=== PATIENT | female | born 1950 | race Caucasian/White ===

== ENCOUNTER 2022-06-23 11:05 | Outpatient (CLI) | payer OTHER, SELFPAY | END 2022-06-23 11:06 | disposition home or self-care (01) | LOC: LKVREF 06-26 14:52 | PROVIDERS: PCP Family Medicine; Visit Provider Physician Assistant | DX: R30.0 Dysuria (principal); N39.0 Urinary tract infection, site not specified | CPT/HCPCS: 87086 ==

== ENCOUNTER 2022-10-09 09:46 | Emergency (ER) | payer OTHER, SELFPAY ==
[2022-10-09 09:54] VITALS: BP 141/83; PULSE 71; RESP 18; TEMP 36.2; O2SAT 97; BMI 28.3
--- NOTE | 2022-10-09 10:10 | CRLHL7_ITS ---
For Patients: As a result of the Century Cures Act, medical imaging exams and procedure reports are released immediately into your electronic medical record. You may view this report before your referring provider. If you have questions, please contact your health care provider. INDICATION: Trauma COMPARISON: August 13, 2021 TECHNIQUE: : CT examination of the chest was performed without contrast. Thin axial sections were obtained from above the apices of the lungs to the lung bases. Please note that all CT scans at this facility use dose modulation, iterative reconstruction, and/or weight-based dosing when appropriate to reduce radiation dose to as low as reasonably achievable. FINDINGS: : HEART and MEDIASTINUM: The heart size is normal. There is no mediastinal or hilar adenopathy or mass. There is no pericardial effusion. LUNGS: The lungs show no focal consolidation or mass. The airways appear normal. Trace basilar atelectasis PLEURAL SPACES: There is no pleural effusion, pneumothorax or pleural based mass. VISUALIZED UPPER ABDOMEN: The limited visualized upper abdominal structures appear normal. OSSEOUS STRUCTURES: Age-appropriate appearance. No acute fracture or destructive process.No acute osseous finding. No definite acute rib fracture. TUBES and LINES: None. IMPRESSION: No visible acute post traumatic findings. Minimal basilar atelectasis. No pleural effusion or pneumothorax. Please note that all CT scans at this facility use dose modulation, iterative reconstruction, and/or weight-based dosing when appropriate to reduce radiation dose to as low as reasonably achievable. Dictated by Bernardino Chpaa MD @ 10/09/2022 10:45:59 AM (Electronically Signed)
--- NOTE | 2022-10-09 10:12 | ED.GENADULT ---
HPI - General Adult General Time Seen by Provider: 10:12 Date Seen: 10/09/22 Chief complaint: Fall/Minor Trauma Stated complaint: Fell last week, chest pain Time Seen by Provider: 10/09/22 10:00 Source: patient Mode of arrival: ambulatory Limitations: no limitations History of Present Illness HPI narrative: Patient is a 72-year-old female who presents with a fall few days ago landed on her left arm and then twisted and hurt her chest she has pain in her posterior scapular area as well as her anterior upper chest. It is tender to palpation, tender went deep breathing or movement. She simply lost her balance when she fell. She has not really taken any pain medication for this. Patient denies radicular symptoms denies abdominal pain has been eating and drinking normally ambulating normally. It has been hard to sleep because of the discomfort in her chest wall anteriorly primarily Related Data Home Medications Medication Instructions Recorded Confirmed celecoxib 200 mg capsule 200 mg PO QDAY 05/01/22 06/23/22 escitalopram oxalate 10 mg tablet 10 mg PO QDAY 05/01/22 10/09/22 metoprolol succinate 25 mg 25 mg PO QDAY 05/01/22 06/23/22 tablet,extended release 24 hr omeprazole 20 mg capsule,delayed 20 mg PO QDAY PRN 05/01/22 10/09/22 release Previous Rx's Medication Instructions Recorded cefuroxime axetil 250 mg tablet 250 mg PO BID #14 tabs 05/01/22 cephalexin 500 mg capsule 500 mg PO BID UTI #14 caps 06/23/22 Allergies Allergy/AdvReac Type Severity Reaction Status Date / Time nitrofurantoin Allergy Unknown N/V Verified 05/01/22 11:23 Sulfa (Sulfonamide Allergy Unknown GI upset Verified 05/01/22 11:23 Antibiotics) Review of Systems Status of ROS: Reports: 6 or more systems reviewed and unremarkable except as noted in History and below PFSH PFSH Social History Smoking Status: Never smoker How often do you have a drink containing alcohol: never AUDIT-C Alcohol total score: 0 Non-prescribed substance use: denies use Exam Narrative: Exam Narrative: Objective: In general the patient is no apparent distress alert orient x3 HEENT unremarkable neck is supple Chest shows some tenderness anteriorly over the mid act midclavicular line no bruising no crepitus pulses regular she has some mild periscapular discomfort as well on the left no bruising. Neurologic is grossly nonfocal good peripheral perfusion noted. She has a couple scratches on her left forearm but she is moving her arm fully. Const: Vital Signs, click to edit/add: Vital Signs - 24 hr 10/09/22 09:54 Temperature 97.2 F L Pulse Rate [Pulse Oximeter] 71 Respiratory Rate 18 Blood Pressure [Le ft Upper Arm] 141/83 H Pulse Oximetry 97 Oxygen Delivery Me thod Room Air Course Vital Signs Vital signs: Initial Vital Signs Temperature 97.2 F L 10/09/22 09:54 Temperature Source Temporal Artery Scan 10/09/22 09:54 Pulse Rate 71 10/09/22 09:54 Respiratory Rate 18 10/09/22 09:54 Blood Pressure 141/83 H 10/09/22 09:54 Blood Pressure Mean 102 10/09/22 09:54 Blood Pressure Position Sitting 10/09/22 09:54 Pulse Oximetry 97 10/09/22 09:54 Oxygen Delivery Method 10/09/22 09:54 Vital Signs Temperature 97.2 F L 10/09/22 09:54 Pulse Rate 71 10/09/22 09:54 Respiratory Rate 18 10/09/22 09:54 Blood Pressure 141/83 H 10/09/22 09:54 Pulse Oximetry 97 10/09/22 09:54 Oxygen Delivery Method 10/09/22 09:54 Temperature 97.2 F L 10/09/22 09:54 Pulse Rate 71 10/09/22 09:54 Respiratory Rate 18 10/09/22 09:54 Blood Pressure 141/83 H 10/09/22 09:54 Pulse Oximetry 97 10/09/22 09:54 Oxygen Delivery Method 10/09/22 09:54 Medical Decision Making MDM Narrative Medical decision making narrative: Given the patient's fall and her persistent posterior and anterior chest wall pain I think could be appropriate to get a CT scan without contrast to rule out fracture, pulmonary contusion. Her O2 sat is excellent. Will give her some ibuprofen. Disposition pending her CT findings. She was in agreement this plan. Addendum: Chest CT scan looks unremarkable for any posttraumatic changes, no rib fractures, no pulmonary contusion. Recommend symptomatic management this point ice, Advil or Aleve, Tylenol, recheck with primary care in 5-7 days not improving changes concerns worsening return to ED. Discharge Plan Discharge Clinical Impression: Acute chest wall pain Patient Disposition: Home, Self-Care Condition: Stable Additional Instructions: Rest, light activity, Advil as needed, ice the affected area on the anterior chest as needed. Follow up with primary care in the next 5-7 days not improving changes concerns worsening return to the ED. Activity Level: Light activity Discharge Diet: Regular Prescriptions: No Action cephalexin 500 mg capsule 500 mg PO BID Qty: 14 0RF Rx Instructions: Take one pill by mouth twice daily for 7 days. celecoxib 200 mg capsule 200 mg PO QDAY escitalopram oxalate 10 mg tablet 10 mg PO QDAY metoprolol succinate 25 mg tablet extended release 24 hr 25 mg PO QDAY omeprazole 20 mg capsule,delayed release(DR/EC) 20 mg PO QDAY PRN cefuroxime axetil 250 mg tablet 250 mg PO BID Qty: 14 0RF Follow Up/Referrals: Bertram Bush MD [Primary Care Provider] - Stand Alone Forms: [employer] Info Instructions
[2022-10-09] MEDS: IBUPROFEN 400 MG TABLET 800 MG PO (10:31)
== END 2022-10-09 11:12 | disposition home or self-care (01) ==
PROVIDERS: Emergency Provider Family Medicine; PCP Family Medicine
DX: S29.9XXA Unspecified injury of thorax, initial encounter (principal); W18.30XA Fall on same level, unspecified, initial encounter; Y93.9 Activity, unspecified; Y92.9 Unspecified place or not applicable; Y99.9 Unspecified external cause status
CPT/HCPCS: 71250; 99283; A9270

== ENCOUNTER 2023-06-27 10:50 | Inpatient (IN) | payer OTHER, SELFPAY ==
[2023-06-27] VITALS (27 sets, daily range): BP systolic 83–126; BP diastolic 47–88; PULSE 57–84; RESP 14–20; TEMP 36.5–37; O2SAT 86–100
--- NOTE | 2023-06-27 11:24 | CRLHL7_ITS ---
For Patients: As a result of the Century Cures Act, medical imaging exams and procedure reports are released immediately into your electronic medical record. You may view this report before your referring provider. If you have questions, please contact your health care provider. Indication: Fall, right hip pain. Technique: Pelvis/right hip, 3 views. Comparison: None. Findings/Impression: Bones: Acute mildly displaced right femoral subcapital fracture with impaction and varus deformity. Joint spaces: Unremarkable. Soft tissues: Unremarkable. Dictated by Nehemias Renee MD @ 06/27/2023 12:31:13 PM (Electronically Signed)
--- NOTE | 2023-06-27 11:25 | ED.GENADULT ---
HPI - General Adult General Chief complaint: Hip Injury/Pain Stated complaint: Fell, hip injury Time Seen by Provider: 06/27/23 11:12 History of Present Illness HPI narrative: 72-year-old woman presenting to the emergency department who was in her usual state of health complaining of right hip pain following a fall while moving a recliner. She was folded into the car somehow by and brother after this fall to come to the emergency department. She was assisting lifting a recliner and bumped her head on a door way of vehicle I think tripped over the ramp falling on her right hip. Did not hit her head otherwise in the fall. There was no loss of consciousness. No neck or back pain. No abdominal pain. No shortness of breath other than the degree of pain affecting how she feels . Says her right leg feels like spaghetti and wants to fall to the outside. Feels like has pain radiating down her thigh to her knee and wondering if her knee is okay. Related Data Home Medications Medication Instructions Recorded Confirmed omeprazole 20 mg capsule,delayed 20 mg PO QDAY PRN 05/01/22 03/19/23 release Previous Rx's Medication Instructions Recorded escitalopram oxalate 10 mg tablet 10 mg PO QDAY #90 tabs 01/29/23 escitalopram oxalate 20 mg tablet 20 mg PO QDAY #90 tabs 03/19/23 metoprolol succinate 25 mg 25 mg PO QDAY #90 tabs 03/19/23 tablet,extended release 24 hr Allergies Allergy/AdvReac Type Severity Reaction Status Date / Time nitrofurantoin Allergy Unknown N/V Verified 03/19/23 10:47 Sulfa (Sulfonamide Allergy Unknown GI upset Verified 03/19/23 10:47 Antibiotics) Review of Systems Status of ROS: Reports: 6 or more systems reviewed and unremarkable except as noted in History and below [facility] Medical History Mild depression ?F32.A - Depression, unspecified (ICD-10) Surgical History Status post tubal ligation ?Z98.51 - Tubal ligation status (ICD-10) Family History Other Ovarian cancer Social History Smoking Status: Never smoker How often do you have a drink containing alcohol: never AUDIT-C Alcohol total score: 0 Non-prescribed substance use: denies use Exam Narrative: Exam Narrative: I hear Ms. Ferguson struggling audibly in apparent pain transitioning to the exam bed. Go to examine her. She is quite alert. Breathing easily otherwise. Lungs are clear. Head appears to be atraumatic neck is supple nontender. Back nontender. Heart in regular rate and rhythm. Abdomen is protuberant soft and nontender. Any movement of the right hip causes a good deal of pain --indicates radiating to the groin. Knee does not appear to be involved. Well-perfused peripherally. Const: Vital Signs, click to edit/add: Vital Signs - 24 hr 06/27/23 11:24 Temperature 97.9 F Pulse Rate [Pulse Oximeter] 66 Respiratory Rate 20 Blood Pressure [Le ft Upper Arm] 126/75 Pulse Oximetry 96 Oxygen Delivery Me thod Room Air Documenting provider has reviewed patient's vital signs: yes Course Vital Signs Vital signs: Initial Vital Signs Temperature 97.9 F 06/27/23 11:24 Temperature Source Temporal Artery Scan 06/27/23 11:24 Pulse Rate 66 06/27/23 11:24 Respiratory Rate 20 06/27/23 11:24 Blood Pressure 126/75 06/27/23 11:24 Blood Pressure Mean 92 06/27/23 11:24 Blood Pressure Position Supine 06/27/23 11:24 Pulse Oximetry 96 06/27/23 11:24 Oxygen Delivery Method Room Air 06/27/23 11:24 Vital Signs Temperature 97.9 F 06/27/23 11:24 Pulse Rate 66 06/27/23 11:24 Respiratory Rate 20 06/27/23 11:24 Blood Pressure 126/75 06/27/23 11:24 Pulse Oximetry 96 06/27/23 11:24 Oxygen Delivery Method Room Air 06/27/23 11:24 Temperature 97.9 F 06/27/23 11:24 Pulse Rate 66 06/27/23 11:24 Respiratory Rate 20 06/27/23 11:24 Blood Pressure 126/75 06/27/23 11:24 Pulse Oximetry 96 06/27/23 11:24 Oxygen Delivery Method Room Air 06/27/23 11:24 Medical Decision Making MDM Narrative Medical decision making narrative: IVs initiated head. I would suspect right hip fracture. Does not appear to have sustained other injury at this point. Due to degree of pain will give Dilaudid. Pending imaging. X-ray shows femoral neck/subcapital fracture with some impaction by my read. Osteoarthritic changes. Still a spasms of pain after mg of Dilaudid. Ordered 4 mg of morphine. Discussed with Orthopedics on-call and given last time of ingestion anticipating potential surgery today. Chest x-ray looks unremarkable per my read. Did discuss with hospitalist who anticipate picking up postoperative. Anticipate transfer to OR for surgery from emergency department. Labs are reviewed. Hospitalist confirmed negative stress echocardiogram and 2020 and tolerated anesthesia for tubal ligation in the past. I would consider Ms. Ferguson, given emergent nature of this surgery, cleared for trial of anesthesia and surgery. Medical Records Medical records reviewed: Yes I reviewed the patient's medical records Lab Data Lab results reviewed: Yes I reviewed the patient's lab results Labs: Lab Results 06/27/23 Range/Units 11:20 Hgb 13.7 (12.0-16.0) gm/dL Sodium 137 (135-149) mmol/L Potassium 4.1 (3.6-5.1) mmol/L Chloride 106 (96-114) mmol/L Carbon Dioxide 22 (20-32) mmol/L Anion Gap 9 (7-15) mEq/L BUN 21 (7-30) mg/dL Creatinine 0.8 (0.5-1.5) mg/dL Estimated GFR 78 ml/min Glucose 107 (60-115) mg/dL Calcium 9.3 (8.4-10.6) mg/dL ECG Data Attestation: I personally reviewed and interpreted this ECG as follows: (EKG shows normal sinus rhythm, generally low voltage, rate of 67. No acute ischemic changes.) Discharge Plan Discharge Clinical Impression: Hip fracture Patient Disposition: XFER to OR Condition: Stable Follow Up/Referrals: Bertram Bush MD [Primary Care Provider] -
[2023-06-27] MEDS: HYDROmorphone 2 MG TABLET 1 MG PO (11:37)
[2023-06-27] MEDS: 0.9 % SODIUM CHLORIDE 1000 ml 1,000 ML IV (11:37)
--- NOTE | 2023-06-27 11:43 | CRLHL7_ITS ---
For Patients: As a result of the Century Cures Act, medical imaging exams and procedure reports are released immediately into your electronic medical record. You may view this report before your referring provider. If you have questions, please contact your health care provider. INDICATION: Preop study. TECHNIQUE: Chest 1 views. COMPARISON: CT, October 09, 2022. FINDINGS: Cardiovascular and mediastinum: Heart size and vasculature are normal in caliber and appearance. Lungs and pleural spaces: Low lung volumes. Lungs are clear. Soft tissue fullness over the right apex, without recent CT correlate, favored to be related to overlying soft tissues. No sign of infiltrate or mass. No sign of pleural effusion. No pneumothorax. Bones and soft tissues: No significant findings. Metallic density overlying the mid thorax. IMPRESSION: Low lung volumes. No acute or significant findings. Dictated by Nehemias Renee MD @ 06/27/2023 12:40:52 PM (Electronically Signed)
[2023-06-27 12:52] LABS: Hemoglobin* 13.7 gm/dL (12.0-16.0)
[2023-06-27 13:10] LABS: Chloride* 106 mmol/L (96-114); Potassium* 4.1 mmol/L (3.6-5.1); Sodium* 137 mmol/L (135-149)
[2023-06-27 13:12] LABS: Creatinine* 0.8 mg/dL (0.5-1.5); Estimated Glomerular Filt Rate 78 ml/min
[2023-06-27 13:13] LABS: Anion Gap 9 mEq/L (7-15); Blood Urea Nitrogen* 21 mg/dL (7-30); Calcium* 9.3 mg/dL (8.4-10.6); Carbon Dioxide* 22 mmol/L (20-32); Glucose* 107 mg/dL (60-115)
[2023-06-27] MEDS: MORPHINE 4 MG/ML INJ IVP (13:22)
--- NOTE | 2023-06-27 14:25 | ED.GENADULT ---
HPI - General Adult General Chief complaint: Hip Injury/Pain Stated complaint: Fell, hip injury Time Seen by Provider: 06/27/23 11:12 History of Present Illness HPI narrative: Re-dictation of completed lost note 72-year-old woman presenting to the emergency department who was in her usual state of health complaining of right hip pain following a fall while moving a recliner. She was folded into the car somehow by and brother after this fall to come to the emergency department. She was assisting lifting a recliner and bumped her head on a door way of vehicle I think tripped over the ring up falling on her right hip. Did not hit her head otherwise in the fall. There was no loss of consciousness. No neck or back pain. No abdominal pain. No shortness of breath other than the degree of pain affecting how she feels. Says her right leg feels like spaghetti and wants to fall to the outside. Feels like has pain radiating down her thigh to her knee in wondering if for any is okay. Related Data Home Medications Medication Instructions Recorded Confirmed omeprazole 20 mg capsule,delayed 20 mg PO DAILY PRN 05/01/22 06/27/23 release escitalopram oxalate 20 mg tablet 20 mg PO DAILY 06/27/23 06/27/23 metoprolol succinate 25 mg 25 mg PO DAILY 06/27/23 06/27/23 tablet,extended release 24 hr Allergies Allergy/AdvReac Type Severity Reaction Status Date / Time nitrofurantoin Allergy Unknown N/V Verified 03/19/23 10:47 Sulfa (Sulfonamide Allergy Unknown GI upset Verified 03/19/23 10:47 Antibiotics) Review of Systems Status of ROS: Reports: 6 or more systems reviewed and unremarkable except as noted in History and below [facility] Medical History Mild depression ?F32.A - Depression, unspecified (ICD-10) Surgical History Status post tubal ligation ?Z98.51 - Tubal ligation status (ICD-10) Family History Other Ovarian cancer Social History Smoking Status: Never smoker How often do you have a drink containing alcohol: never AUDIT-C Alcohol total score: 0 Non-prescribed substance use: denies use Exam Narrative: Exam Narrative: Noting that Ms. Ferguson is groaning in pain upon transfer to bed I go to see her shortly to address her pain a timely manner. She is quite alert. Breathing easily otherwise. Lungs are clear. Head appears to be atraumatic, neck is supple nontender. Back nontender. Heart in regular rate and rhythm. Abdomen is protuberant soft and nontender. Any movement to the right hip causes a good deal of pain -- indicates radiating to the groin. Knee does not appear to be involved. Well-perfused peripherally. Const: Vital Signs, click to edit/add: Vital Signs - 24 hr 06/27/23 11:24 06/27/23 13:45 06/27/23 14:00 Temperature 97.9 F Pulse Rate 68 67 Pulse Rate [Pulse Oximeter] 66 Respiratory Rate 20 Blood Pressure Blood Pressure [Le ft Upper Arm] 126/75 Pulse Oximetry 96 91 88 Oxygen Delivery Me thod Room Air Oxygen Flow Rate 06/27/23 14:01 06/27/23 14:15 06/27/23 14:20 Temperature Pulse Rate 70 70 Pulse Rate [Pulse Oximeter] Respiratory Rate Blood Pressure 116/67 Blood Pressure [Le ft Upper Arm] Pulse Oximetry 86 L 90 96 Oxygen Delivery Me thod Nasal Cannula Oxygen Flow Rate 2 Documenting provider has reviewed patient's vital signs: yes Course Vital Signs Vital signs: Initial Vital Signs Temperature 97.9 F 06/27/23 11:24 Temperature Source Temporal Artery Scan 06/27/23 11:24 Pulse Rate 66 06/27/23 11:24 Respiratory Rate 20 06/27/23 11:24 Blood Pressure 126/75 06/27/23 11:24 Blood Pressure Mean 92 06/27/23 11:24 Blood Pressure Position Supine 06/27/23 11:24 Pulse Oximetry 96 06/27/23 11:24 Oxygen Delivery Method Room Air 06/27/23 11:24 Vital Signs Temperature 97.9 F 06/27/23 11:24 Pulse Rate 66 06/27/23 11:24 Respiratory Rate 20 06/27/23 11:24 Blood Pressure 126/75 06/27/23 11:24 Pulse Oximetry 96 06/27/23 11:24 Oxygen Delivery Method Room Air 06/27/23 11:24 Temperature 97.9 F 06/27/23 11:24 Pulse Rate 70 06/27/23 14:15 Respiratory Rate 20 06/27/23 11:24 Blood Pressure 116/67 06/27/23 14:01 Pulse Oximetry 96 06/27/23 14:20 Oxygen Delivery Method Nasal Cannula 06/27/23 14:20 Oxygen Flow Rate 2 06/27/23 14:20 Medical Decision Making MDM Narrative Medical decision making narrative: I would anticipate having a hip fracture here. Does not appear to have sustained any other injuries. IVs established. Ordered for mg of Dilaudid initially and IV fluids. X-rays are pending. X-rays by my read appears to show a femoral neck/subcapital fracture with some impaction. Osteoarthritic changes. Still a spasms of pain after 1 mg of Dilaudid. Ordered 4 mg of morphine. Discussed with Orthopedics on-call and given last time of ingestion anticipating potential surgery today. Chest x-ray looks unremarkable per my read. Have reviewed labs. Discussed this patient with our hospitalist and dissipating their involvement postoperative. Anticipate transfer to OR for surgery from the emergency department. Information obtained from review of records/conversation with hospitalist reveal a negative stress echocardiogram in 2020 and that appears to have tolerated anesthesia for tubal ligation in the past. I would consider Ms. Avendano given emergent nature of the surgery, cleared for trial of anesthesia and anticipated surgery. Medical Records Medical records reviewed: Yes I reviewed the patient's medical records Lab Data Lab results reviewed: Yes I reviewed the patient's lab results Labs: Lab Results 06/27/23 Range/Units 11:20 Hgb 13.7 (12.0-16.0) gm/dL Sodium 137 (135-149) mmol/L Potassium 4.1 (3.6-5.1) mmol/L Chloride 106 (96-114) mmol/L Carbon Dioxide 22 (20-32) mmol/L Anion Gap 9 (7-15) mEq/L BUN 21 (7-30) mg/dL Creatinine 0.8 (0.5-1.5) mg/dL Estimated GFR 78 ml/min Glucose 107 (60-115) mg/dL Calcium 9.3 (8.4-10.6) mg/dL ECG Data Attestation: I personally reviewed and interpreted this ECG as follows: (EKG shows normal sinus rhythm, generally low voltage, rate of 67. No acute ischemic changes.) Discharge Plan Discharge Clinical Impression: Hip fracture Patient Disposition: XFER to OR Condition: Stable Follow Up/Referrals: Bertram Bush MD [Primary Care Provider] -
[2023-06-27] MEDS: CEFAZOLIN 1 GM inj IVP (15:40)
--- NOTE | 2023-06-27 15:42 | P.ORCN_ITS ---
History of Present Illness HPI Date Seen: 06/27/23 Consult date: 06/27/23 Chief complaint: Fell Narrative: Asiya is 72-year-old female who sustained a right hip femoral neck fracture earlier today. Injury occurred when she tripped while moving a recliner and landed on her right hip. Following the injury she had severe pain in her anterior hip and groin and was unable to bear weight. She was subsequently brought to the emergency department where x-rays confirmed displaced right femoral neck fracture. Currently, patient continues to experience anterior hip and groin pain. She denies any other injuries. Prior to this injury she was a community ambulator without the use of any assistive devices. [facility] Medical History Mild depression ?F32.A - Depression, unspecified (ICD-10) Surgical History Status post tubal ligation ?Z98.51 - Tubal ligation status (ICD-10) Family History Other Ovarian cancer Social History Smoking Status: Never smoker How often do you have a drink containing alcohol: never AUDIT-C Alcohol total score: 0 Non-prescribed substance use: denies use Meds Home Medications and Allergies Home Medications Medication Instructions Recorded Confirmed Type omeprazole 20 mg capsule,delayed 20 mg PO DAILY PRN 05/01/22 06/27/23 History release escitalopram oxalate 20 mg tablet 20 mg PO DAILY 06/27/23 06/27/23 History metoprolol succinate 25 mg 25 mg PO DAILY 06/27/23 06/27/23 History tablet,extended release 24 hr Allergies Allergy/AdvReac Type Severity Reaction Status Date / Time nitrofurantoin Allergy Unknown N/V Verified 03/19/23 10:47 Sulfa (Sulfonamide Allergy Unknown GI upset Verified 03/19/23 10:47 Antibiotics) Ortho Exam Narrative Exam Narrative: General: Patient is in moderate discomfort complaining of right anterior hip, groin, and thigh pain. She is alert and oriented x3. Musculoskeletal: Right hip pain was aggravated by any attempted movement of the hip. Right lower extremity was noted be short and externally rotated. Sensation was intact to light touch all dermatomes distally. EHL, tibialis anterior, gastrocnemius/soleus were intact. Foot was warm and well perfused with intact DP and PT pulses. Const Vital Signs, click to edit/add: Vital Signs - 24 hr 06/27/23 11:24 06/27/23 13:45 06/27/23 14:00 Temperature 97.9 F Pulse Rate 68 67 Pulse Rate [Pulse Oximeter] 66 Respiratory Rate 20 Blood Pressure Blood Pressure [Left Upper Arm] 126/75 Pulse Oximetry 96 91 88 Oxygen Delivery Method Room Air Oxygen Flow Rate 06/27/23 14:01 06/27/23 14:15 06/27/23 14:20 Temperature Pulse Rate 70 70 Pulse Rate [Pulse Oximeter] Respiratory Rate Blood Pressure 116/67 Blood Pressure [Left Upper Arm] Pulse Oximetry 86 L 90 96 Oxygen Delivery Method Nasal Cannula Oxygen Flow Rate 2 06/27/23 14:30 06/27/23 14:45 06/27/23 15:00 Temperature Pulse Rate 84 69 69 Pulse Rate [Pulse Oximeter] Respiratory Rate Blood Pressure Blood Pressure [Left Upper Arm] Pulse Oximetry 99 97 97 Oxygen Delivery Method Oxygen Flow Rate 06/27/23 15:01 06/27/23 15:02 Temperature Pulse Rate 70 70 Pulse Rate [Pulse Oximeter] Respiratory Rate Blood Pressure 113/81 Blood Pressure [Left Upper Arm] Pulse Oximetry 97 95 Oxygen Delivery Method Oxygen Flow Rate Results Labs Labs: Laboratory Results - last 48 hr 06/27/23 11:20 Hgb 13.7 Sodium 137 Potassium 4.1 Chloride 106 Carbon Dioxide 22 Anion Gap 9 BUN 21 Creatinine 0.8 Estimated GFR 78 Glucose 107 Calcium 9.3 Assessment and Plan Assessment and plan (1) Fracture of femoral neck, right, closed: Status: Acute (2) GERD (gastroesophageal reflux disease): Status: Acute (3) Hypertension: Status: Acute Plan Asiya has unfortunately sustained a closed, displaced right femoral neck fracture. Risks and benefits of operative and non operative treatment were discussed with patient, and recommendation was made for surgical intervention consisting of a right hip bipolar hemiarthroplasty. Risks of surgery to include but not limited to infection, neurovascular injury, hip dislocation, failure of procedure, deep vein thrombosis, pulmonary embolism, heart attack, stroke, and even were discussed and all questions were answered. After discussion, patient was in agreement with plan to proceed with surgery, which we will plan for this afternoon. She is to remain NPO and on bed rest until surgery. Postoperatively she would be admitted to the hospitalist service for medical management before she is appropriate for discharge, likely to home.
--- NOTE | 2023-06-27 16:15 | W.PM.NB ---
Nerve Block Nerve Block Time Seen by Provider: 15:00 Date Seen: 06/27/23 Type of block requested by surgeon for post-operative analgesia: CHAR/LFCN Side: right Time out performed: Yes Verification of patient name: Yes Verification of date of : Yes Site marking: site marked Name of person performing procedure: ANUSHA Lancaster Continuous monitoring Was continuous monitoring of O2 sat, B/P, alarm security or surveillance monitor, recorded every 15 minutes?: Yes Procedure Checklist: sterile prep, needles and gloves Ultrasound guided. Images saved: Yes Medications given in 5ml increments after negative aspiration: Ropivicaine (25 ml total. 20 ml CHAR, 5 ml LFC) %: 0.5 mL: 25 Needle gauge: 20 Decadron (mg): 10 Precedex (mcg): 20 Patient tolerated procedure well: Yes Block Charges Block Charge (with Pro Fee): Femoral Nerve Use of Ultrasound Machine for Block: Yes- US Guidance/pain block
--- NOTE | 2023-06-27 16:28 | P.ANES_ITS ---
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
--- NOTE | 2023-06-27 16:28 | W.ANESCHARGE ---
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
[2023-06-27] MEDS: LACTATED RINGERS 1000 ML 1,000 ML 100 ML IV ×2 (17:03→17:04)
--- NOTE | 2023-06-27 17:12 | PM.IMHP1 ---
Hospitalist- H&P: HPI History of Present Illness Date Seen: 06/27/23 Chief complaint: Fell Narrative: Asiya Ferguson is a 72 year old female who presented to the ED earlier today for R hip pain after a mechanical fall at home while moving a recliner. She was helping her and brother in law, when she hit her forehead on a bar in the doorway and it pushed her backwards; she fell onto her R hip. No LOC. No headache. ER Course and Findings: - Mildly displaced R femoral neck subcapital fracture with impaction and varus deformity - no concerning findings on CXR or EKG Orthopedic Surgery consulted and patient went from ED to OR for a R hip cemented bipolar hemiarthroplasty, no complications noted during procedure. Patient's history updated below. PCP is Dr. Bush. Review of Systems Status of ROS: Reports: 10 or more systems reviewed and unremarkable except as noted in History and below PFSH [facility] Medical History (Updated 06/27/23 @ 20:49 by Dalia Jacobs MD) Anxiety ?F41.9 - Anxiety disorder, unspecified (ICD-10) PAC (premature atrial contraction) ?I49.1 - Atrial premature depolarization (ICD-10) GERD (gastroesophageal reflux disease) ?K21.9 - Gastro-esophageal reflux disease without esophagitis (ICD-10) Family history of ovarian cancer ?Z80.41 - Family history of malignant neoplasm of ovary (ICD-10) Bunion ?M21.619 - Bunion of unspecified foot (ICD-10) Mild depression ?F32.A - Depression, unspecified (ICD-10) Surgical History Status post tubal ligation ?Z98.51 - Tubal ligation status (ICD-10) Family History Other Ovarian cancer Social History Smoking Status: Never smoker How often do you have a drink containing alcohol: never AUDIT-C Alcohol total score: 0 Non-prescribed substance use: denies use Meds Home Medications and Allergies Home Medications Medication Instructions Recorded Confirmed Type omeprazole 20 mg capsule,delayed 20 mg PO DAILY PRN 05/01/22 06/27/23 History release escitalopram oxalate 20 mg tablet 20 mg PO DAILY 06/27/23 06/27/23 History metoprolol succinate 25 mg 25 mg PO DAILY 06/27/23 06/27/23 History tablet,extended release 24 hr Allergies Allergy/AdvReac Type Severity Reaction Status Date / Time nitrofurantoin Allergy Unknown N/V Verified 03/19/23 10:47 Sulfa (Sulfonamide Allergy Unknown GI upset Verified 03/19/23 10:47 Antibiotics) Exam Narrative: Exam Narrative: GEN: Alert and oriented, laying comfortably in bed HEENT: PERRL and EOMIs bilaterally, no scleral icterus CV: RRR, No concerning murmurs R: LCTA bilaterally without concerning wheezing, air movement adequate Ext: SCDs bilaterally Skin: No concerning skin lesions or rashes on exposed skin Neuro: Nonfocal Psych: Appropriate Const: Vital Signs, click to edit/add: Vital Signs - 24 hr 06/27/23 11:24 06/27/23 13:45 06/27/23 14:00 Temperature 97.9 F Pulse Rate 68 67 Pulse Rate [Pulse Oximeter] 66 Respiratory Rate 20 Blood Pressure Blood Pressure [Le ft Upper Arm] 126/75 Pulse Oximetry 96 91 88 Oxygen Delivery Me thod Room Air Oxygen Flow Rate 06/27/23 14:01 06/27/23 14:15 06/27/23 14:20 Temperature Pulse Rate 70 70 Pulse Rate [Pulse Oximeter] Respiratory Rate Blood Pressure 116/67 Blood Pressure [Le ft Upper Arm] Pulse Oximetry 86 L 90 96 Oxygen Delivery Me thod Nasal Cannula Oxygen Flow Rate 2 06/27/23 14:30 06/27/23 14:45 06/27/23 15:00 Temperature Pulse Rate 84 69 69 Pulse Rate [Pulse Oximeter] Respiratory Rate Blood Pressure Blood Pressure [Le ft Upper Arm] Pulse Oximetry 99 97 97 Oxygen Delivery Me thod Oxygen Flow Rate 06/27/23 15:01 06/27/23 15:02 Temperature Pulse Rate 70 70 Pulse Rate [Pulse Oximeter] Respiratory Rate Blood Pressure 113/81 Blood Pressure [Le ft Upper Arm] Pulse Oximetry 97 95 Oxygen Delivery Me thod Oxygen Flow Rate Hospitalist - H&P: Result Labs Labs: Short CBC 06/27/23 Range/Units 11:20 Hgb 13.7 (12.0-16.0) gm/dL BMP 06/27/23 11:20 Sodium 137 Potassium 4.1 Chloride 106 Carbon Dioxide 22 BUN 21 Creatinine 0.8 Glucose 107 Calcium 9.3 Assessment and Plan Assessment and plan (1) Fracture of femoral neck, right, closed: Problem comment: - s/p R hip cemented bipolar hemiarthroplasty with Dr. Christie of Ortho on 06/27 Status: Acute (2) GERD (gastroesophageal reflux disease): Status: Inactive (3) Hypertension: Status: Acute Plan - pain management and prophylaxis per orthopedic surgery team - continue home medications for comorbidities - anticipate routine postoperative course - updated at bedside, questions answered
--- NOTE | 2023-06-27 17:59 | PM.ORPRC ---
Procedure Note Date of procedure: 06/27/23 Procedure: PREOPERATIVE DIAGNOSIS: 1. Closed, displaced, right femoral neck fracture POSTOPERATIVE DIAGNOSIS: 1. Closed, displaced, right femoral neck fracture PROCEDURE: 1. Right hip cemented bipolar hemiarthroplasty SURGEON: Rubio Christie MD. ELECTRICAL DESIGN TECHNICIAN: Rozina Montgomery P.A.-C. - Surgical assistants were critical for this case to aid in patient positioning, tissue retraction, limb manipulation/positioning, and wound closure. ANESTHESIA: General anesthetic IMPLANTS: DePuy Jessamine femoral stem size 3 with standard offset; 8.5 mm stem centralizer; DePuy 28 +8.5 femoral head; DePuy bipolar femoral head with 28 mm inner diameter and 45 mm outer diameter FINDINGS: Displaced subcapital femoral neck fracture EBL: 200 mL COMPLICATIONS: None evident INDICATIONS: The patient is a pleasant 72-year-old male who sustained right femoral neck fracture after ground level fall while moving furniture earlier today. Upon admission to the emergency department, she was found to have a displaced subcapital femoral neck fracture. Treatment options were discussed and recommendation was made for surgical intervention consisting of bipolar right hip hemiarthroplasty. Prior to surgery risks and benefits of treatment were discussed with patient all questions answered and informed consent was obtained. DESCRIPTION OF PROCEDURE: Following a thorough discussion of risks, benefits, and alternatives consent was obtained and the right hip was marked. The patient was brought to the operating room, where spinal anesthesia was administered. She was then placed into the left lateral decubitus position on the operating table. An axillary roll was placed and all bony prominences were well padded. 2 g IV Ancef was administered within 1 hr of incision preoperatively. The right hip was then prepped and draped in usual sterile fashion using ChloraPrep. A surgical time-out was performed confirming patient identity surgical site surgical procedure. A posterior lateral incision was made centered over the posterior aspect of the greater trochanter. Incision was carried through subcutaneous tissues. The IT band and gluteus danuta fascia were identified. The IT band and gluteus danuta fascia were then incised in line with the incision and Charnley retractor was placed. Gluteus medius was retracted anteriorly. Piriformis and short external rotators were identified. Piriformis was tagged with a #1 Ethibond stitch and was released off its bony insertion. The short external rotators and capsule were also released off the femur an L-shaped capsulotomy was performed. Once the capsulotomy was completed the hip was dislocated. A femoral neck osteotomy was then performed approximately 1 cm proximal to the lesser trochanter. The femoral head was then removed with a corkscrew device. Femoral head measured 44-45 mm in diameter. We trialed both 44 and 45 mm head and felt that there was better fit with the 45 mm head. We then turned our attention back to the proximal femur. A cookDataSift cutter osteotome was used to enter the proximal femur. A canal finer was then used to find the center of the canal. A lateralizing Reamer was used canal was reamed up to the appropriate size. Then broached sequentially to a size 3 broach and trialed with the +5 and +8.5 heads. With +8.5 head we had better stability with full range of motion, and good soft tissue tension. The hip was then dislocated trial components were removed. The distal cement restrictor was then placed. The canal was copiously irrigated and dried. Cement was then pressurized into the canal. A size 3 standard offset Jessamine stem was then inserted into the canal in the appropriate anteversion. We removed excess cement and allowed the cement time to cure. Once the cement had cured, we trialed again with the +8.5 head and 45 mm outer diameter shell. This again gave us appropriate soft tissue tension, good leg length, and good stability. We removed the trial head and irrigated the trunnion. We dried the trunnion and impacted the +8.5 femoral head and 45 mm outer diameter shell and appropriate liner. We checked stability 1 more time and again confirmed this to be satisfactory. The hip was then irrigated copious amounts of normal saline. The piriformis, external rotators, capsule were repaired through bone tunnels into the greater trochanter using#2 FiberWire sutures. IT band was closed with #1 Ethibond [id number] interrupted sutures followed by running Stratafix stitch. Subcutaneous fat was reapproximated with 2-0 Vicryl interrupted stitches. Subcutaneous tissues were closed with 2-0 Vicryl inverted interrupted stitches followed by a running Stratafix stitch and Exofin surgical glue. Mepilex dressing was applied, and an abduction pillow was placed between the patient's legs. Patient was then transferred in the supine position. Patient was then transferred to the recovery room in stable condition. Postoperative AP pelvis and lateral hip x-rays revealed good position of the bipolar hip component in equal leg lengths. PLAN: 1. Patient will be admitted to the hospitalist service for postoperative medical management. 2. Weight bearing: Weightbearing as tolerated 3. Posterior hip precautions right hip. Abduction pillow to remain in place while patient is in bed. 4. Postoperative antibiotics: Ancef x2 doses postoperatively per protocol 5. Pain control: Oral and IV pain medications. 6. PT/OT consults for ambulation assistance/mobility education 7. DVT prophylaxis: Continue mechanical SCDs while in the hospital. Aspirin 81 mg b.i.d. times 35 days. 8. Follow up in Orthopedic Clinic in 1-2 weeks
--- NOTE | 2023-06-27 18:08 | CRLHL7_ITS ---
For Patients: As a result of the Cures Act, medical imaging exams and procedure reports are released immediately into your electronic medical record. You may view this report before your referring provider. If you have questions, please contact your health care provider. INDICATION: Post operative right hip, injury fall today, status post right hip hemiarthroplasty TECHNIQUE: Pelvis radiograph, Hip radiograph 2 views right COMPARISON: 06/27/2023 FINDINGS: Bone: No acute fractures or aggressive bone lesions are identified. The iliac crests are partially excluded. Joint: A right hip arthroplasty is noted. The visualized sacroiliac joints are unremarkable in appearance. The pubic symphysis is normal in appearance. Soft tissue: Lateral skin, subcutaneous gas and joint gas are present from recent surgery. The visualized bowel gas pattern of the pelvis is unremarkable in appearance. No radiopaque foreign bodies are seen. IMPRESSION: 1. There is an unremarkable postoperative appearance of the hip arthroplasty. Dictated by: Guille Rutledge MD @ 06/28/2023 14:19:23 (Electronically Signed)
[2023-06-27] MEDS: ASPIRIN 81 MG TABLET EC PO (20:27)
[2023-06-27] MEDS: SENNOSIDES 1 TAB TABLET 2 TAB PO (20:27)
[2023-06-27] MEDS: KETOROLAC 15 MG/ML inj IVP (20:27)
[2023-06-27] MEDS: LACTATED RINGERS 1000 ML 1,000 ML 75 ML IV (20:40)
[2023-06-27] MEDS: ACETAMINOPHEN 500 MG TABLET 1000 MG PO (20:40)
[2023-06-27] MEDS: 0.9 % SODIUM CHLORIDE 500 ML IV (23:21)
[2023-06-28] VITALS: BP 88/53; PULSE 61; RESP 18; O2SAT 96
[2023-06-28] MEDS: CEFAZOLIN 1 GM in 0.9 % SODIUM CHLORIDE Mini-bag 100 ML IVPB ×2 (00:20→08:24)
[2023-06-28] MEDS: KETOROLAC 15 MG/ML inj IVP ×2 (00:20→06:56)
[2023-06-28 01:00] VITALS: BP 86/41; PULSE 61; RESP 18; O2SAT 88
[2023-06-28] MEDS: 0.9 % SODIUM CHLORIDE 500 ML IV (02:15)
[2023-06-28] MEDS: ACETAMINOPHEN 500 MG TABLET 1000 MG PO (03:35)
[2023-06-28 07:25] LABS: Hematocrit 32.5 % (33.0-51.0); Hemoglobin* 10.3 gm/dL (12.0-16.0); Mean Corpuscular HGB Conc 32 gm/dL (32-36); Mean Corpuscular Hemoglobin 31 pg (26-34); Mean Corpuscular Volume 99 fL (80-100); Platelet Count* 179 K/uL (140-440); Red Blood Count 3.28 m/uL (4.00-5.20); White Blood Count* 12.81 K/uL (4.50-11.00)
[2023-06-28 07:29] LABS: Slide Review Reflex No
[2023-06-28 07:43] LABS: Potassium* 4.7 mmol/L (3.6-5.1); Sodium* 138 mmol/L (135-149)
[2023-06-28 07:46] LABS: Creatinine* 0.8 mg/dL (0.5-1.5); Estimated Glomerular Filt Rate 78 ml/min
[2023-06-28 07:47] LABS: Blood Urea Nitrogen* 29 mg/dL (7-30)
--- NOTE | 2023-06-28 07:51 | PC.NURSE ---
Pleasant and cooperative. SBA with gb and walker, tolerates very well. No c/o pain, rating pain 0/10. 2x 500mL bolus given, Soft BPs, low urine output. Pt on 1L O2 via NC when asleep to keep sats >88%. ?
[2023-06-28 08:15] VITALS: BP 92/54; PULSE 61; RESP 16; TEMP 36.1; O2SAT 94
--- NOTE | 2023-06-28 09:35 | P.ORPN_ITS ---
Subjective Subjective Time Seen by Provider: 09:35 Date Seen: 06/28/23 Principal diagnosis: Status post right hip hemiarthroplasty, 06/27/2023 Interval history: Asiya is doing well this morning. She is ambulating well. She feels some tightness in the groin, otherwise no significant pain. With ambulation she has no fatigue, no shortness of breath, no dizziness. She states I feel fine. Ortho Exam Narrative Exam Narrative: Alert and oriented x3. Patient is in no acute distress. Converses without labored breathing. Hearing is grossly intact. Ambulates with a walker. Examination of the right hip shows the dressing is intact. There is no erythema or warmth or sign of infection. CMS intact right lower extremity. Bilateral c peña are soft and nontender. No foot drop. Mild soft tissue edema about the right hip. Const Vital Signs, click to edit/add: Vital Signs - 24 hr 06/27/23 11:24 06/27/23 13:45 06/27/23 14:00 Temperature 97.9 F Pulse Rate 68 67 Pulse Rate [Pulse Oximeter] 66 Pulse Rate [Right Dorsalis Pedis] Respiratory Rate 20 Blood Pressure Blood Pressure [Left Arm] Blood Pressure [Left Upper Arm] 126/75 Pulse Oximetry 96 91 88 Oxygen Delivery Method Room Air Oxygen Flow Rate 06/27/23 14:01 06/27/23 14:15 06/27/23 14:20 Temperature Pulse Rate 70 70 Pulse Rate [Pulse Oximeter] Pulse Rate [Right Dorsalis Pedis] Respiratory Rate Blood Pressure 116/67 Blood Pressure [Left Arm] Blood Pressure [Left Upper Arm] Pulse Oximetry 86 L 90 96 Oxygen Delivery Method Nasal Cannula Oxygen Flow Rate 2 06/27/23 14:30 06/27/23 14:45 06/27/23 15:00 Temperature Pulse Rate 84 69 69 Pulse Rate [Pulse Oximeter] Pulse Rate [Right Dorsalis Pedis] Respiratory Rate Blood Pressure Blood Pressure [Left Arm] Blood Pressure [Left Upper Arm] Pulse Oximetry 99 97 97 Oxygen Delivery Method Oxygen Flow Rate 06/27/23 15:01 06/27/23 15:02 06/27/23 18:35 Temperature 97.7 F Pulse Rate 70 70 67 Pulse Rate [Pulse Oximeter] Pulse Rate [Right Dorsalis Pedis] Respiratory Rate 14 Blood Pressure 113/81 110/66 Blood Pressure [Left Arm] Blood Pressure [Left Upper Arm] Pulse Oximetry 97 95 99 Oxygen Delivery Method Non Rebreather Mask Oxygen Flow Rate 6 06/27/23 18:40 06/27/23 18:45 06/27/23 18:50 Temperature 98.6 F Pulse Rate 66 62 69 Pulse Rate [Pulse Oximeter] Pulse Rate [Right Dorsalis Pedis] Respiratory Rate 16 16 16 Blood Pressure 92/47 L 110/88 102/73 Blood Pressure [Left Arm] Blood Pressure [Left Upper Arm] Pulse Oximetry 100 100 100 Oxygen Delivery Method Non Rebreather Mask Non Rebreather Mask Non Rebreather Mask Oxygen Flow Rate 5 4 4 06/27/23 18:55 06/27/23 19:00 06/27/23 19:05 Temperature 98.1 F Pulse Rate 68 61 68 Pulse Rate [Pulse Oximeter] Pulse Rate [Right Dorsalis Pedis] Respiratory Rate 16 16 16 Blood Pressure 105/79 108/74 105/62 Blood Pressure [Left Arm] Blood Pressure [Left Upper Arm] Pulse Oximetry 97 96 94 Oxygen Delivery Method Room Air Room Air Room Air Oxygen Flow Rate 06/27/23 19:17 06/27/23 19:30 06/27/23 19:45 Temperature 97.8 F 97.8 F Pulse Rate 61 Pulse Rate [Pulse Oximeter] Pulse Rate [Right Dorsalis Pedis] 60 57 L Respiratory Rate 18 18 18 Blood Pressure Blood Pressure [Left Arm] 101/73 104/60 93/53 L Blood Pressure [Left Upper Arm] Pulse Oximetry 90 93 Oxygen Delivery Method Nasal Cannula Room Air Room Air Oxygen Flow Rate 2 06/27/23 20:00 06/27/23 20:15 06/27/23 20:30 Temperature 98 F Pulse Rate Pulse Rate [Pulse Oximeter] Pulse Rate [Right Dorsalis Pedis] 58 L 60 59 L Respiratory Rate 18 18 18 Blood Pressure Blood Pressure [Left Arm] 92/72 98/58 L 95/62 Blood Pressure [Left Upper Arm] Pulse Oximetry 89 93 94 Oxygen Delivery Method Room Air Nasal Cannula Nasal Cannula Oxygen Flow Rate 1 1 06/27/23 21:00 06/27/23 22:00 06/27/23 23:00 Temperature 98.5 F Pulse Rate Pulse Rate [Pulse Oximeter] Pulse Rate [Right Dorsalis Pedis] 59 L 59 L 58 L Respiratory Rate 18 18 18 Blood Pressure Blood Pressure [Left Arm] 92/61 87/59 L 83/49 L Blood Pressure [Left Upper Arm] Pulse Oximetry 94 94 92 Oxygen Delivery Method Nasal Cannula Nasal Cannula Nasal Cannula Oxygen Flow Rate 1 1 1 06/28/23 00:00 06/28/23 01:00 Temperature Pulse Rate Pulse Rate [Pulse Oximeter] Pulse Rate [Right Dorsalis Pedis] 61 61 Respiratory Rate 18 18 Blood Pressure Blood Pressure [Left Arm] 88/53 L 86/41 L Blood Pressure [Left Upper Arm] Pulse Oximetry 96 88 Oxygen Delivery Method Nasal Cannula Room Air Oxygen Flow Rate 1 Assessment and Plan Assessment and plan (1) Fracture of femoral neck, right, closed: Problem details: - s/p R hip cemented bipolar hemiarthroplasty with Dr. Christie of Ortho on 06/27 Status: Acute Assessment and Plan: X-rays taken postop yesterday show prosthesis to be well placed and well-fixed. Leg lengths are equal. Asiya is certainly doing remarkable 1 day post right hip hemiarthroplasty. She has 1 step into her home which is a rambler. Her blood pressure at 1:00 a.m. this morning was 86/41. Hospitalist is aware. He will watch this this morning. Plan for discharge is today to home if she meets discharge criteria. DVT prophylaxis includes aspirin 81 mg twice daily for 37 days, Feng stockings x 1 month may remove for 1 hr per day, frequent ambulation Remove dressing 1 week. Observe wound and phone Orthopedics with any questions or concerns Use Ice on operative hip unrestricted. Return to clinic in 1 week with PA for a wound check Return to clinic in 6 weeks with surgeon Minimize narcotic use. Wean off and discontinue soon as possible. Posterior hip precautions. Abductor pillow to be used at night for 4 weeks. Attend outpt PT . We discussed the tightness in her groin may get worse before it gets better, for I am expecting her to have more swelling in the buttock and thigh within the next week. She may also get more bruising. (2) GERD (gastroesophageal reflux disease): Status: Inactive (3) Hypertension: Status: Acute
[2023-06-28 09:40] VITALS: BP 98/48; PULSE 71; RESP 14; O2SAT 94
--- NOTE | 2023-06-28 10:01 | W.PM.CROSSCO ---
Subjective Subjective Principal diagnosis: Status post right hip hemiarthroplasty, 06/27/2023 Interval history: patient hypotensive this morning; asymptomatic; repeat BP 98/48; cleared for discharge; passed therapy
--- NOTE | 2023-06-28 10:02 | P.DS_ITS ---
DS: Providers Provider Date Seen: 06/28/23 Date of admission: 06/27/23 19:16 Primary care physician: Bertram Bsuh MD Admitting Clinician: Dalia Jacobs MD Consults: 06/27/23 18:09 Consult to Occupational Therapy [CONS] Routine Comment: Reason(s) for OT Consult:: Evaluate and Treat Any Restrictions?:: See Comment Comment: evaluate and treat Consult to Physical Therapy [CONS] Routine Comment: Reason(s) for PT Consult:: Evaluate and Treat Any Restrictions?:: Wt Bearing as Tolerated Consult to Loan And Credit Manager [CONS] Routine Comment: Reason for Consult:: Discharge Planning Needs Attending Physician on discharge: Bertram Christie MD Date of Discharge: 06/28/23 DS: Diagnosis Discharge Diagnosis (1) Fracture of femoral neck, right, closed: Status: Acute Problem details: - s/p R hip cemented bipolar hemiarthroplasty with Dr. Christie of Ortho on 06/27 (2) Hypertension: Status: Acute DS: Summary Hospital Course Hospital Course: Hospitalist- H&P: HPI History of Present Illness Date Seen: 06/27/23 Chief complaint: Fell Narrative: Asiya Ferguson is a 72 year old female who presented to the ED earlier today for R hip pain after a mechanical fall at home while moving a recliner. She was helping her and brother in law, when she hit her forehead on a bar in the doorway and it pushed her backwards; she fell onto her R hip. No LOC. No headache. ER Course and Findings: - Mildly displaced R femoral neck subcapital fracture with impaction and varus deformity - no concerning findings on CXR or EKG Orthopedic Surgery consulted and patient went from ED to OR for a R hip cemented bipolar hemiarthroplasty, no complications noted during procedure. Patient's history updated below. PCP is Dr. Bush. PREOPERATIVE DIAGNOSIS: 1. Closed, displaced, right femoral neck fracture POSTOPERATIVE DIAGNOSIS: 1. Closed, displaced, right femoral neck fracture PROCEDURE: 1. Right hip cemented bipolar hemiarthroplasty SURGEON: Rubio Christie MD. DERMATOLOGY PHYSICIAN: Rozina Montgomery P.A.-C. - Surgical assistants were critical for this case to aid in patient positioning, tissue retraction, limb manipulation/positioning, and wound closure. ANESTHESIA: General anesthetic IMPLANTS: DePuy Ciales femoral stem size 3 with standard offset; 8.5 mm stem centralizer; DePuy 28 +8.5 femoral head; DePuy bipolar femoral head with 28 mm inner diameter and 45 mm outer diameter FINDINGS: Displaced subcapital femoral neck fracture EBL: 200 mL Ortho Progress notes Assessment and plan (1) Fracture of femoral neck, right, closed: Return to clinic in 1 week with PA for a wound check Return to clinic in 6 weeks with surgeon Minimize narcotic use. Wean off and discontinue soon as possible. Posterior hip precautions. Abductor pillow to be used at night for 4 weeks. Attend outpt PT . We discussed the tightness in her groin may get worse before it gets better, for I am expecting her to have more swelling in the buttock and thigh within the next week. She may also get more bruising. Medicine patient hypotensive this morning; asymptomatic; repeat BP 98/48; cleared for discharge; passed therapy; patient states BP normally low in AMs, repeat hgb 10.3 Time Spent with Patient Time attestation: Total time spent providing and/or coordinating discharge services: Exam Narrative: Exam Narrative: Gen: no acute distress HEENT: NCAT EOMI mmm Neck: Supple CV: RRR normal s1 s2 Lungs: CTAB Abd: Soft,nt, nd Neuro: Alert, oriented, CN grossly intact; nonfocal screening?exam Psych: appropriate affect MSK: age appropriate muscle mass Skin; Warm, dry no rash on face Const: Vital Signs, click to edit/add: Vital Signs - 24 hr 06/27/23 11:24 06/27/23 13:45 06/27/23 14:00 Temperature 97.9 F Pulse Rate 68 67 Pulse Rate [Pulse Oximeter] 66 Pulse Rate [Right Dorsalis Pedis] Respiratory Rate 20 Blood Pressure Blood Pressure [Le ft Arm] Blood Pressure [Le ft Upper Arm] 126/75 Pulse Oximetry 96 91 88 Oxygen Delivery Me thod Room Air Oxygen Flow Rate 06/27/23 14:01 06/27/23 14:15 06/27/23 14:20 Temperature Pulse Rate 70 70 Pulse Rate [Pulse Oximeter] Pulse Rate [Right Dorsalis Pedis] Respiratory Rate Blood Pressure 116/67 Blood Pressure [Le ft Arm] Blood Pressure [Le ft Upper Arm] Pulse Oximetry 86 L 90 96 Oxygen Delivery Me thod Nasal Cannula Oxygen Flow Rate 2 06/27/23 14:30 06/27/23 14:45 06/27/23 15:00 Temperature Pulse Rate 84 69 69 Pulse Rate [Pulse Oximeter] Pulse Rate [Right Dorsalis Pedis] Respiratory Rate Blood Pressure Blood Pressure [Le ft Arm] Blood Pressure [Le ft Upper Arm] Pulse Oximetry 99 97 97 Oxygen Delivery Me thod Oxygen Flow Rate 06/27/23 15:01 06/27/23 15:02 06/27/23 18:35 Temperature 97.7 F Pulse Rate 70 70 67 Pulse Rate [Pulse Oximeter] Pulse Rate [Right Dorsalis Pedis] Respiratory Rate 14 Blood Pressure 113/81 110/66 Blood Pressure [Le ft Arm] Blood Pressure [Le ft Upper Arm] Pulse Oximetry 97 95 99 Oxygen Delivery Me thod Non Rebreather Mas k Oxygen Flow Rate 6 06/27/23 18:40 06/27/23 18:45 06/27/23 18:50 Temperature 98.6 F Pulse Rate 66 62 69 Pulse Rate [Pulse Oximeter] Pulse Rate [Right Dorsalis Pedis] Respiratory Rate 16 16 16 Blood Pressure 92/47 L 110/88 102/73 Blood Pressure [Le ft Arm] Blood Pressure [Le ft Upper Arm] Pulse Oximetry 100 100 100 Oxygen Delivery Me thod Non Rebreather Mas k Non Rebreather Mas k Non Rebreather Mas k Oxygen Flow Rate 5 4 4 06/27/23 18:55 06/27/23 19:00 06/27/23 19:05 Temperature 98.1 F Pulse Rate 68 61 68 Pulse Rate [Pulse Oximeter] Pulse Rate [Right Dorsalis Pedis] Respiratory Rate 16 16 16 Blood Pressure 105/79 108/74 105/62 Blood Pressure [Le ft Arm] Blood Pressure [Le ft Upper Arm] Pulse Oximetry 97 96 94 Oxygen Delivery Me thod Room Air Room Air Room Air Oxygen Flow Rate 06/27/23 19:17 06/27/23 19:30 06/27/23 19:45 Temperature 97.8 F 97.8 F Pulse Rate 61 Pulse Rate [Pulse Oximeter] Pulse Rate [Right Dorsalis Pedis] 60 57 L Respiratory Rate 18 18 18 Blood Pressure Blood Pressure [Le ft Arm] 101/73 104/60 93/53 L Blood Pressure [Le ft Upper Arm] Pulse Oximetry 90 93 Oxygen Delivery Me thod Nasal Cannula Room Air Room Air Oxygen Flow Rate 2 06/27/23 20:00 06/27/23 20:15 06/27/23 20:30 Temperature 98 F Pulse Rate Pulse Rate [Pulse Oximeter] Pulse Rate [Right Dorsalis Pedis] 58 L 60 59 L Respiratory Rate 18 18 18 Blood Pressure Blood Pressure [Le ft Arm] 92/72 98/58 L 95/62 Blood Pressure [Le ft Upper Arm] Pulse Oximetry 89 93 94 Oxygen Delivery Me thod Room Air Nasal Cannula Nasal Cannula Oxygen Flow Rate 1 1 06/27/23 21:00 06/27/23 22:00 06/27/23 23:00 Temperature 98.5 F Pulse Rate Pulse Rate [Pulse Oximeter] Pulse Rate [Right Dorsalis Pedis] 59 L 59 L 58 L Respiratory Rate 18 18 18 Blood Pressure Blood Pressure [Le ft Arm] 92/61 87/59 L 83/49 L Blood Pressure [Le ft Upper Arm] Pulse Oximetry 94 94 92 Oxygen Delivery Me thod Nasal Cannula Nasal Cannula Nasal Cannula Oxygen Flow Rate 1 1 1 06/28/23 00:00 06/28/23 01:00 Temperature Pulse Rate Pulse Rate [Pulse Oximeter] Pulse Rate [Right Dorsalis Pedis] 61 61 Respiratory Rate 18 18 Blood Pressure Blood Pressure [Le ft Arm] 88/53 L 86/41 L Blood Pressure [Le ft Upper Arm] Pulse Oximetry 96 88 Oxygen Delivery Me thod Nasal Cannula Room Air Oxygen Flow Rate 1 DS: Data Data Completed and Pending Labs on day of discharge: Labs from last 24 hours 06/28/23 06/27/23 06:22 11:20 WBC 12.81 H RBC 3.28 L Hgb 10.3 L 13.7 Hct 32.5 L MCV 99 MCH 31 MCHC 32 Plt Count 179 Sodium 138 137 Potassium 4.7 4.1 Chloride 106 Carbon Dioxide 22 Anion Gap 9 BUN 29 21 Creatinine 0.8 0.8 Estimated GFR 78 78 Glucose 107 Calcium 9.3 Discharge Plan Discharge Disposition: Home, Self-Care Date of Admission: 06/27/23 19:16 Primary Care Provider: Bertram Bush Condition: Stable Anticipated Discharge Date/Time: 06/28/23 13:00 Discharge Medications: New aspirin [Aspirin Childrens] 81 mg tablet,chewable 81 mg PO BID 37 Days Qty: 74 0RF acetaminophen 500 mg capsule 500 - 1,000 mg PO Q6H MDD 4000mg per day PRN (Reason: pain) Qty: 100 0RF sennosides [Senna Lax] 8.6 mg Tablet 17.2 mg PO BID PRN (Reason: constipation) Qty: 100 0RF oxycodone 5 mg Tablet 2.5 - 5 mg PO Q4-6H MDD 6 tabs per day PRN (Reason: Pain) Qty: 42 0RF Rx Instructions: Minimize. Discontinue as soon as possible Continued metoprolol succinate 25 mg tablet extended release 24 hr 25 mg PO DAILY escitalopram oxalate 20 mg tablet 20 mg PO DAILY omeprazole 20 mg capsule,delayed release(DR/EC) 20 mg PO DAILY PRN Discharge Orders: Discharge Order (Routine); Ordered 06/28/23 Ordered By: Asiya Montgomery Patient Education: Acetaminophen (By mouth), Aspirin (By mouth), Oxycodone, Rapid Release (By mouth), Senna (By mouth), Surgical Site Infections (DC), Total Hip Replacement (DC) Additional Instructions: Staff please make Appointment with Orthopedics, PA visit, in [address] Christie in orthopedic clinic in 6 weeks. Please schedule outpatient physical therapy start in two weeks. Weightbear as tolerated right lower extremity, eval and treat Rt hip hemiarthroplasty, posterior hip precautions. orthopedics office phone number [phone] Activity Level: Activity as Tolerated, No strenuous activity and Don't flex hip more than 90 degrees Activity Detail: Keep dressing on for 1 week. Dressing is waterproof. May shower. Surgical glue covers the wound. Attend outpatient physical therapy if scheduled. Ice and elevate operative extremity without restriction. Wear compression stockings for 1 month post surgery. May remove for 1 hour per day. Ambulate frequently throughout the day to prevent blood clots, prefer every hour. If you drive, Do not drive while taking narcotic pain medication. Do not drink alcohol while taking narcotic pain medication. May drive when safe to do so and have full function of the extremities, this will take 6 weeks or more. Notify Orthopedics with any questions or concerns. ([phone]) use abduction pillow at night for 1 month postop. Posterior hip precautions. Discharge Diet: Other Diet Detail: Resume previous home diet Follow Up Appointments: Rebolledo-Lang,Asiya M, PA-C [Physician [employer] [facility]] - 07/02/23 11:00 am ([facility] for follow-up.) Bertram Bush MD [Primary Care Provider] - Forms: Work/School Release
--- NOTE | 2023-06-28 12:24 | PC.NURSE ---
alert and oriented. vs wnl. LS clear Heart reg s1s2. no edema. incision dry and intact. good cwms ble. denies pain or nausea. roland po. up in room with walker, belt and SBA. up in chair . discharge instruction given. request to take home meds at home. discharged to home with abraham via w/c.
== END 2023-06-28 11:50 | disposition home or self-care (01) | DRG 522 ==
LOC: ED 13:26 → SS 16:22 → MEDSURG 19:44 → SS 20:27 → MEDSURG 20:27
PROVIDERS: Admitting Provider Orthopaedic Surgery; Emergency Provider Family Medicine; PCP Family Medicine; Visit Provider Orthopaedic Surgery
PROC: 0SRR0J9 Replacement of Right Hip Joint, Femoral Surface with Synthetic Substitute, Cemented, Open Approach (ICD-10-PCS; principal; 2023-06-27 14:30)
DX: S72.011A Unspecified intracapsular fracture of right femur, initial encounter for closed fracture (principal); W01.0XXA Fall on same level from slipping, tripping and stumbling without subsequent striking against object, initial encounter; I95.9 Hypotension, unspecified; I10 Essential (primary) hypertension; F41.9 Anxiety disorder, unspecified; F32.A Depression, unspecified; K21.9 Gastro-esophageal reflux disease without esophagitis; I49.1 Atrial premature depolarization; G89.18 Other acute postprocedural pain
CPT/HCPCS: 01210; 36415; 64447; 71045; 73501; 73502; 76942; 80048; 82565; 84132; 84295; 84520; 85018; 85027; 93005; 97110; 97161; 97165; 97535; 99100; 99140; 99284; 99285; A9270; C1776; J0690; J1100; J1885; J2250; J2270; J2371; J2405; J2704; J2795; J3490; J7030; J7120

== ENCOUNTER 2023-07-14 17:38 | Outpatient (CLI) | payer OTHER, SELFPAY ==
--- NOTE | 2023-07-14 18:00 | CRLHL7_ITS ---
For Patients: As a result of the Century Cures Act, medical imaging exams and procedure reports are released immediately into your electronic medical record. You may view this report before your referring provider. If you have questions, please contact your health care provider. INDICATION: Right leg pain. Right JEREMIAS 2 weeks ago. TECHNIQUE: Ultrasound venous duplex lower right extremity. Compression venous exam was performed using gooden-scale, color Doppler, and spectral Doppler imaging. COMPARISON: None FINDINGS: Sonographic imaging demonstrates the right common femoral, deep femoral, superficial femoral, popliteal, posterior tibial and greater saphenous and the contralateral left common femoral veins to be fully compressible with normal color Doppler blood flow. IMPRESSION: Normal right lower extremity venous ultrasound, no sign of deep venous thrombosis. Dictated by Otto Boo MD @ 07/14/2023 7:39:39 PM (Electronically Signed)
== END 2023-07-14 17:39 | disposition home or self-care (01) ==
LOC: US 17:40
PROVIDERS: PCP Family Medicine; Visit Provider Physician Assistant
DX: M79.661 Pain in right lower leg (principal)
CPT/HCPCS: 93971

== ENCOUNTER 2023-07-21 12:30 | Outpatient (RCR) | payer OTHER, SELFPAY ==
--- NOTE | 2023-07-14 14:12 | PT.OPEX ---
[facility] PT [facility] Out[facility] Eval Start: 07/14/23 12:35 Freq: Status: Active Protocol: Document 07/14/23 12:35 CRP (Rec: 07/14/23 14:07 CRP [id number]) E-signed By Shayne Montgomery PT Physical Therapy Outpatient Evaluation Insurance Information Recert Due Date 10/12/23 Insurance Name Medicare B Medical Diagnosis S/P R hip hemiarthroplasty DOS 06-27-23 Referring MD Asiya Montgomery PA-C Subjective Subjective 06-27-23 fell and fxd R hip. Had partial JEREMIAS that same day. In hospital one night. Is now at home without steps. is at home and can help her if needed. Currently the pt c.o some continued tingling at R ant thigh, has had some swelling in R ankle and will have groin pain that increases with walking. Pt walks with FWW. Sleep is OK. Main issue with sleeping is restless leg issues. Pt reports that with her restless leg sxs she is having calf pain. She notes that with her restless legs her calf tightens up really hard and then releases over and over again during the night which ends up causing calf soreness on the right. This has been going on lately but is also what she has always dealt with in the past as well. Pt is sleeping with a pillow between her knees. Also notes that she has a good understanding of her hip precautions. Date of Last Physician Visit 07/02/23 Date of Surgery (If applicable) 06/27/23 Current Work Status Retired Precautions Treatment Precautions/Contraindications Standard hip precautions Weight Bearing Status Weight Bear as Tolerated Objective Other/Pertinent Objective Sit to stand - Independent pushing with arms Gait - amb independently with FWW. Shows decreased stance time on R and decreased step length on L Hip ROM - flex to 90 deg Knee ROM WNL ANkle ROM WNL MMT Knee flex/ext 4+/5 Mild Palpable pain noted throughout all areas of the calf Functional Test Performed & Score 30 sec sit to stand test 8 reps Assessment Assessment/Impression Pt presents to the clinic s/p R hip hemiarthroplasty. Pt shows decreased ROM, weakness and poor functional mobility all within expected ranges for this post op diagnosis. Skilled PT is necessary to improve strength, control and functional mobility within post op precautions. Primary Functional Limitations Limited tolerance to standing, walking, sit to stand and balance. Plan of Care Rehabilitation Potential Excellent Physical Therapy Goals 1. Pt will show full independence with HEP in 4 weeks 2. Pt will ambulate without AD in 6-8 weeks 3. Pt will complete marketing rep without AD in 12 weeks Coordination/Communication With Referral Source Treatment Plan/Direct Interventions Gait Training,Manual Therapy, Neuromuscular Re-ed,Self-Care/ Home Management,Therapeutic Activities,Therapeutic Exercises Frequency/Duration 1x/wk for 12 weeks Patient Will Be Discharged From Therapy Completion of LTG(s),Skills Plateau,Independent w/HEP, Independently Progressing Evaluation Billing Untimed Code Treatment Minutes 30 Complexity Moderate Certification Information Initial Certification Date 07/14/23 Ending Certification Date 10/12/23 Provider Signature Shows Agreement With POC & Medical Necessity Physician Signature & Date Requested Please Sign/Date Here Physician Comment/Change : Physician NPI Number #
== END 2023-11-18 23:59 | disposition home or self-care (01) ==
PROVIDERS: PCP Family Medicine; Visit Provider Physician Assistant
DX: S72.001A Fracture of unspecified part of neck of right femur, initial encounter for closed fracture (principal); Z96.641 Presence of right artificial hip joint; M25.512 Pain in left shoulder; Z51.89 Encounter for other specified aftercare
CPT/HCPCS: 97110; 97112; 97162

== ENCOUNTER 2023-10-30 11:15 | Outpatient (RCR) | payer OTHER, SELFPAY ==
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
== END 2024-01-28 12:02 | disposition home or self-care (01) ==
PROVIDERS: PCP Family Medicine; Visit Provider Orthopaedic Surgery
DX: M19.012 Primary osteoarthritis, left shoulder (principal); M67.912 Unspecified disorder of synovium and tendon, left shoulder; M25.512 Pain in left shoulder; Z51.89 Encounter for other specified aftercare
CPT/HCPCS: 97110; 97140; 97161

== ENCOUNTER 2023-11-26 08:24 | Outpatient (CLI) | payer MEDICARE, SELFPAY | END 2023-11-26 08:25 | disposition home or self-care (01) | PROVIDERS: PCP Family Medicine; Referring Provider Family Medicine; Visit Provider Family Medicine | DX: N39.0 Urinary tract infection, site not specified (principal) | CPT/HCPCS: 87086 ==

== ENCOUNTER 2025-05-02 12:31 | Outpatient (CLI) | payer MEDICARE, SELFPAY | END 2025-05-02 12:32 | disposition home or self-care (01) | LOC: NFLDREF 05-05 23:09 | PROVIDERS: PCP Family Medicine; Referring Provider Family Medicine | DX: R35.0 Frequency of micturition (principal); N39.0 Urinary tract infection, site not specified | CPT/HCPCS: 87086 ==

== ENCOUNTER 2025-07-07 12:50 | Outpatient (CLI) | payer MEDICARE, SELFPAY | END 2025-07-07 12:51 | disposition home or self-care (01) | LOC: NFLDREF 07-13 08:42 | PROVIDERS: PCP Family Medicine; Referring Provider Family Medicine; Visit Provider Physician Assistant | DX: N30.00 Acute cystitis without hematuria (principal) | CPT/HCPCS: 87086 ==

== ENCOUNTER 2025-08-12 12:03 | Outpatient (CLI) | payer MEDICARE, SELFPAY | END 2025-08-12 12:04 | disposition home or self-care (01) | LOC: NFLDREF 08-15 18:22 | PROVIDERS: PCP Family Medicine; Referring Provider Family Medicine; Visit Provider Physician Assistant | DX: N39.0 Urinary tract infection, site not specified (principal); R30.0 Dysuria | CPT/HCPCS: 87086 ==

== ENCOUNTER 2025-08-19 10:36 | Outpatient (CLI) | payer MEDICARE, SELFPAY | END 2025-08-19 10:37 | disposition home or self-care (01) | PROVIDERS: PCP Family Medicine; Visit Provider Family Medicine | DX: I10 Essential (primary) hypertension (principal); Z13.6 Encounter for screening for cardiovascular disorders | CPT/HCPCS: 80048; 80061 ==

== ENCOUNTER 2025-08-28 12:57 | Outpatient (CLI) | payer MEDICARE, SELFPAY | END 2025-08-28 12:58 | disposition home or self-care (01) | LOC: AMB 08-30 13:12 | PROVIDERS: PCP Family Medicine; Visit Provider Emergency Medicine | DX: S79.912A Unspecified injury of left hip, initial encounter (principal); W18.00XA Striking against unspecified object with subsequent fall, initial encounter; Y92.008 Other place in unspecified non-institutional (private) residence as the place of occurrence of the external cause | CPT/HCPCS: A0425; A0427 ==

== ENCOUNTER 2025-08-28 13:39 | Inpatient (IN) | payer MEDICARE, SELFPAY ==
[2025-08-28] VITALS (21 sets, daily range): BP systolic 108–166; BP diastolic 53–92; PULSE 67–78; RESP 17–20; TEMP 36.2–37.4; O2SAT 88–99; BMI 31.0; BMI 31.3; BMI 31.4
--- NOTE | 2025-08-28 13:55 | ED.GENADULT ---
HPI - General Adult General Date Seen: 08/28/25 Chief complaint: Hip Injury/Pain Stated complaint: Hip Pain Time Seen by Provider: 08/28/25 13:55 History of Present Illness HPI narrative: 74-year-old female with a past medical history of osteoarthritis, rotator cuff tear, GERD, hypertension, anxiety/depression, restless legs, right femoral neck fracture in June 2023 (arthroplasty done here in [place] by Dr. Christie). She presents to the ER today with left hip pain. She was visiting her family today when their dog jumped up on the patient in a fell over onto her left side. She was on the ground and not able to get up. EMS was called. And she was transported here to the ER. Patient is having lot of pain in her left hip and groin with little pain radiating down to her left knee. She does not have any other injuries from this fall. She did not hit her head. No neck pain. No back pain. No pain in her right hip her leg. Upper extremities are uninjured. She has been on a course of antibiotics for urinary tract infection but feels like the symptoms are better and she completed a course of antibiotics today. She has not had any fever chills. No recent cough for trouble breathing. No vomiting or diarrhea. She was in her usual state of health today until her daughter's large 80 lb dog (which is still actually a puppy) jumped up on her and knocked her off balance. She fell and landed on her left hip and injured it. She has not been able to bear weight or really flex her left hip since the injury. She received some pain meds from EMS and was more comfortable during transport but pain is flaring up now. She was put on nasal cannula by EMS (she says, ?in case my oxygen got low?). Oxygen saturations are normal here. She is not normally on oxygen Related Data Home Medications ?Medication ?Instructions ?Recorded ?Confirmed omeprazole 20 mg capsule,delayed 20 mg PO DAILY 08/19/25 08/28/25 release Previous Rx's ?Medication ?Instructions ?Recorded acetaminophen 500 mg capsule 500 - 1,000 mg (1 - 2 x 500 mg) PO 06/28/23 Q6H PRN pain #100 caps escitalopram oxalate 20 mg tablet 20 mg PO DAILY #90 tabs 08/19/25 metoprolol succinate 25 mg 25 mg PO DAILY #90 tabs 08/19/25 tablet,extended release 24 hr Allergies Allergy/AdvReac Type Severity Reaction Status Date / Time nitrofurantoin Allergy Unknown N/V Verified 08/28/25 13:43 Sulfa (Sulfonamide Allergy Unknown GI upset Verified 08/28/25 13:43 Antibiotics) [facility] Medical History Tongue lesion ?K14.8 - Other diseases of tongue (ICD-10) Back pain ?M54.9 - Dorsalgia, unspecified (ICD-10) Fracture of left clavicle ?S42.002A - Fracture of unspecified part of left clavicle, initial encounter for closed fracture (ICD-10) Surgical History Status post open reduction and internal fixation (ORIF) of fracture ?Z98.890 - Other specified postprocedural states (ICD-10) ?Z87.81 - Personal history of (healed) traumatic fracture (ICD-10) Status post tubal ligation ?Z98.51 - Tubal ligation status (ICD-10) Family History Other Ovarian cancer Social History (Updated 08/22/25 @ 09:38 by Yamileth Gamez ~ [facility]) What is your current living situation?: I presently have a place to live Problems where you live: no known problems In the past 12 months, utilities in danger of being shut off: no In past 12 months, lack of transportation kept you from medical appts, meetings, work, or getting things needed for daily living: no In the past 12 mos, have been you worried that your food would run out before you had money to buy more?: never true In the past 12 mos, the food you bought just didn't last and you didn't have money to buy more?: never true Smoking Status: Never smoker How often do you have a drink containing alcohol: never AUDIT-C Alcohol total score: 0 Non-prescribed substance use: denies use How often does anyone, including family, friends and others, physically hurt you: never How often does anyone, including family, friends and others, insult or talk down to you: never How often does anyone, including family, friends and others, threaten you with harm: never How often does anyone, including family, friends and others, scream or curse at you: never Exam Narrative: Exam Narrative: Constitutional: Appears well-developed and well-nourished. Alert. Conversant. Non toxic. HENT: Head: Atraumatic. No depressed skull fracture, Raccoon Eyes, Tucker's sign, or hemotympanum. Face normal. TMs normal Nose: Nose normal. Mouth/Throat: Oral mucosa is clear and moist. no trismus. Pharynx normal. Tonsils symmetric. No tonsillar enlargement, erythema, or exudate. Eyes: Conjunctivae normal. EOM normal. Pupils equal, round, and reactive to light. No scleral icterus. Neck: Normal range of motion. Neck supple. No tracheal deviation present. No tenderness. Cardiovascular: Normal rate, regular rhythm. No gallop. No friction rub. No murmur heard. Symmetric PT artery pulses Pulmonary/Chest: Effort normal. No stridor. No respiratory distress. No wheezes. No rales. No rhonchi . No ribcage tenderness. Abdominal: Soft. Bowel sounds normal. No distension. No mass. No tenderness. No rebound. No guarding. No CVA tenderness. Musculoskeletal: No T or L-spine midline tenderness or step-off. RUE: Normal range of motion. No tenderness. No deformity LUE: Normal range of motion. No tenderness. No deformity Pelvis is stable but she does have tenderness on the posterior left pelvis and hip as well as along the anterior left pelvis and groin. Range of motion left hip is limited by pain. She is really on a diet able to flex or extend it. There does appear to be subtle shortening of the left knee and heel compared to the right 1 by about a cm or 2). No rotational deformity. Left femoral shaft, quad, hamstring, knee, patella, tibia and fibula, ankle, foot are nontender. Normal ankle plantar flexion and dorsiflexion. Normal toe wiggling. RLE: Normal range of motion. No edema. No tenderness. No deformity Neurological: Alert and oriented to person, place, and time. Normal strength. CN II-VII intact. No sensory deficit. GCS eye subscore is 4. GCS verbal subscore is 5. GCS motor subscore is 6. Normal coordination Skin: Skin is warm and dry. No rash noted. No pallor. Normal capillary refill. Psychiatric: Normal mood. Normal affect. Const: Vital Signs, click to edit/add: Vital Signs - 24 hr 08/28/25 13:51 08/28/25 14:10 08/28/25 14:15 Temperature 97.1 F L Pulse Rate 69 67 Pulse Rate [Pulse Oximeter] 74 Respiratory Rate 20 Blood Pressure Blood Pressure [Ri ght Upper Arm] 125/79 Pulse Oximetry 95 98 97 Oxygen Delivery Me thod Room Air Oxygen Flow Rate 08/28/25 14:42 08/28/25 14:45 08/28/25 15:00 Temperature Pulse Rate 68 72 71 Pulse Rate [Pulse Oximeter] Respiratory Rate Blood Pressure Blood Pressure [Ri ght Upper Arm] Pulse Oximetry 98 99 98 Oxygen Delivery Me thod Oxygen Flow Rate 08/28/25 15:01 08/28/25 15:02 08/28/25 15:15 Temperature Pulse Rate 69 69 74 Pulse Rate [Pulse Oximeter] Respiratory Rate Blood Pressure 148/83 H Blood Pressure [Ri ght Upper Arm] Pulse Oximetry 98 97 96 Oxygen Delivery Me thod Oxygen Flow Rate 08/28/25 15:30 08/28/25 15:32 08/28/25 15:33 Temperature Pulse Rate 72 72 72 Pulse Rate [Pulse Oximeter] Respiratory Rate Blood Pressure 143/69 H Blood Pressure [Ri ght Upper Arm] Pulse Oximetry 88 92 92 Oxygen Delivery Me thod Oxygen Flow Rate 08/28/25 15:45 08/28/25 16:00 08/28/25 16:01 Temperature Pulse Rate 77 78 75 Pulse Rate [Pulse Oximeter] Respiratory Rate Blood Pressure 166/92 H Blood Pressure [Ri ght Upper Arm] Pulse Oximetry 90 88 89 Oxygen Delivery Me thod Oxygen Flow Rate 08/28/25 16:15 Temperature Pulse Rate 77 Pulse Rate [Pulse Oximeter] Respiratory Rate Blood Pressure Blood Pressure [Ri ght Upper Arm] Pulse Oximetry 94 Oxygen Delivery Me thod Nasal Cannula Oxygen Flow Rate 1 Course Vital Signs Vital signs: Initial Vital Signs Temperature 97.1 F L 08/28/25 13:51 Temperature Source Temporal Artery Scan 08/28/25 13:51 Pulse Rate 74 08/28/25 13:51 Respiratory Rate 20 08/28/25 13:51 Blood Pressure 125/79 08/28/25 13:51 Blood Pressure Mean 94 08/28/25 13:51 Blood Pressure Position Supine 08/28/25 13:51 Pulse Oximetry 95 08/28/25 13:51 Oxygen Delivery Method Room Air 08/28/25 13:51 Vital Signs Temperature 97.1 F L 08/28/25 13:51 Pulse Rate 74 08/28/25 13:51 Respiratory Rate 20 08/28/25 13:51 Blood Pressure 125/79 08/28/25 13:51 Pulse Oximetry 95 08/28/25 13:51 Oxygen Delivery Method Room Air 08/28/25 13:51 Temperature 97.1 F L 08/28/25 13:51 Pulse Rate 77 08/28/25 16:15 Respiratory Rate 20 08/28/25 13:51 Blood Pressure 166/92 H 08/28/25 16:01 Pulse Oximetry 94 08/28/25 16:15 Oxygen Delivery Method Nasal Cannula 08/28/25 16:15 Oxygen Flow Rate 1 08/28/25 16:15 Medications Administered Medications: Generic Name Dose Route Start Last Admin Trade Name Freq PRN Reason Stop Dose Admin Hydromorphone HCl 0.5 mg 08/28/25 15:08 08/28/25 16:14 Hydromorphone 0.5 Mg/0.5 Ml Inj IVP 0.5 mg Q1H PRN Administration Pain Discontinued Medications Generic Name Dose Route Start Last Admin Trade Name Freq PRN Reason Stop Dose Admin Fentanyl 25 mcg 08/28/25 14:04 08/28/25 14:19 Fentanyl 100 Mcg/2 Ml Inj IVP 08/28/25 14:05 25 mcg ONCE ONE Administration Medical Decision Making [facility] Narrative Medical decision making narrative: Very pleasant 74-year-old female who is not anticoagulated presents to the ER today by EMS. She was accidentally knocked over by her daughters 80 lb puppy today and landed on her left side. Clinically she is having a lot of left hip/pelvic/groin pain. On radiographs we do confirm a left femoral neck fracture which I think corresponds to that painful injury. She is also having some pain radiating down to her left knee but fortunately radiographs of her left knee/distal femur are normal. She is neurovascularly intact in her left leg. She is quite uncomfortable and requiring serial doses of opiates to get modicum of pain relief. I have requested a consult with anesthesia to consider a left hip nerve block for additional pain relief. I discussed the patient's femoral neck fracture with Orthopedics and they recommended admission for pain control and preoperative management overnight with a plan for operative fixation tomorrow morning. She denies any other painful injuries from the fall. Specifically she is confident she did not hit her head. She does not have a headache. No neck pain. No upper extremity injury. No pain in her ribs, upper back, or lower back. Incidentally preop EKG shows a short ND but no other ischemic changes or arrhythmia. Preop chest x-ray does show evidence for possible right 7th rib fracture. The patient initially denied any symptoms there but when I discussed the radiographic finding her family does recall that she had been complaining of some right-sided chest pain beginning about 3 weeks ago. That is apparently better now. It is possible that she does have a subacute right 7th rib fracture. She is not having any chest pain today or any difficulty breathing or hypoxia. Her laboratory workup is reassuring Discussed with our hospitalist, Dr. Jacobs, who graciously agree agrees to admit Lab Data Labs: Lab Results 08/28/25 Range/Units 14:12 WBC 9.48 (4.50-11.00) K/uL RBC 4.04 (4.00-5.20) m/uL Hgb 12.5 (12.0-16.0) gm/dL Hct 38.2 (33.0-51.0) % MCV 95 (80-100) fL MCH 31 (26-34) pg MCHC 33 (32-36) gm/dL RDW Coeff of Mary 11.7 (11.5-15.5) % Plt Count 208 (140-440) K/uL Neut % (Auto) 74.5 H (42.0-72.0) % Lymph % (Auto) 16.5 L (20-44) % Canadian % (Auto) 7.2 (0.0-11.0) % Eos % (Auto) 1.2 (0.0-7.0) % Baso % (Auto) 0.3 (0.0-3.0) % Neut # (Auto) 7.10 H (1.7-7.0) K/uL Lymph # (Auto) 1.60 (0.90-2.90) K/uL Canadian # (Auto) 0.70 (0.00-0.90) K/UL Eos # (Auto) 0.11 (0.00-0.50) K/uL Baso # (Auto) 0.03 (0.00-0.30) K/uL Abs Immat Gran (auto) 0.03 (0.00-0.30) K/uL Imm/Tot Granulo (auto) 0.3 % Sodium 132 L (135-149) mmol/L Potassium 4.4 (3.6-5.1) mmol/L Chloride 100 (96-114) mmol/L Carbon Dioxide 26 (20-32) mmol/L Anion Gap 6 L (7-15) mEq/L BUN 21 (7-30) mg/dL Creatinine 0.8 (0.5-1.5) mg/dL Estimated Creat Clear 40.83 Estimated GFR 77 ml/min Glucose 106 (60-115) mg/dL Calcium 9.0 (8.4-10.6) mg/dL Imaging Data Chest x-ray: Attestation: I have reviewed the pertinent imaging results. Radiologist's impression: IMPRESSION: 1. Fracture of the right lateral 7th rib is suspected. XR L hip: Attestation: I have reviewed the pertinent imaging results. Radiologist's impression: IMPRESSION: 1. There is a fracture in the left femoral neck with moderate varus angulation present. XR L knee: Attestation: I have reviewed the pertinent imaging results. Radiologist's impression: IMPRESSION: 1. No acute osseous injuries are noted. ECG Data Attestation: I personally reviewed and interpreted this ECG as follows: Interpretation: Normal sinus rhythm with short ND interval Rate 70 ND interval 94. No delta wave Normal QRS axis. No pathologic Q-waves No ST segment elevation or depression QT 376, QTC 4 0 6 Discharge Plan Discharge Clinical Impression: Closed fracture of neck of left femur Patient Disposition: Admitted As Inpatient Condition: Guarded
--- NOTE | 2025-08-28 13:58 | CRLHL7_ITS ---
For Patients: As a result of the Century Cures Act, medical imaging exams and procedure reports are released immediately into your electronic medical record. You may view this report before your referring provider. If you have questions, please contact your health care provider. INDICATION: Fall, chest pain, left hip pain, injury, fall over dog TECHNIQUE: Pelvis radiograph, Hip radiograph 3 views left COMPARISON: None FINDINGS: Bone: There is a fracture in the left femoral neck with moderate varus angulation present. Moderate diffuse osteopenia is present. Joint: A right hip arthroplasty is noted without interval change. The visualized sacroiliac joints are unremarkable in appearance. The pubic symphysis is normal in appearance. Soft tissue: Unremarkable. No radiopaque foreign bodies are seen. IMPRESSION: 1. There is a fracture in the left femoral neck with moderate varus angulation present. Dictated by Guille Rutledge MD @ 08/28/2025 3:02:35 PM ADDENDUM Dictated by: MD @ 08/28/2025 15:03:18 (Electronically Signed)
--- NOTE | 2025-08-28 13:58 | CRLHL7_ITS ---
For Patients: As a result of the Cures Act, medical imaging exams and procedure reports are released immediately into your electronic medical record. You may view this report before your referring provider. If you have questions, please contact your health care provider. INDICATION: Chest pain, fall over dog TECHNIQUE: Chest radiograph 1 view COMPARISON: 06/27/2023 FINDINGS: The sensitivity and specificity of the exam are moderately limited by the patient`s body habitus and the lordotic technique. Mediastinum: The mediastinum is normal in appearance. The heart silhouette is normal in size and morphology. Lung: Both lungs are unremarkable in appearance. No sign of pleural effusion seen. No pneumothorax is identified. Bone and Soft tissue: Fracture of the right lateral 7th rib is suspected. IMPRESSION: 1. Fracture of the right lateral 7th rib is suspected. Dictated by Guille Rutledge MD @ 08/28/2025 3:00:41 PM Dictated by: Guille Rutledge MD @ 08/28/2025 15:00:48 (Electronically Signed)
[2025-08-28 14:28] LABS: Hematocrit* 38.2 % (33.0-51.0); Hemoglobin* 12.5 gm/dL (12.0-16.0); Immature Granulocytes Abs Auto 0.03 K/uL (0.00-0.30); Immature Granulocytes Pct Auto 0.3 %; Mean Corpuscular HGB Conc 33 gm/dL (32-36); Mean Corpuscular Hemoglobin 31 pg (26-34); Mean Corpuscular Volume 95 fL (80-100); RDW Coefficient of Variation % 11.7 % (11.5-15.5); Red Blood Count* 4.04 m/uL (4.00-5.20); White Blood Count* 9.48 K/uL (4.50-11.00)
[2025-08-28 14:32] LABS: Lymphocytes Absolute Auto 1.60 K/uL (0.90-2.90); Slide Review Reflex No
--- NOTE | 2025-08-28 14:35 | CRLHL7_ITS ---
For Patients: As a result of the Cures Act, medical imaging exams and procedure reports are released immediately into your electronic medical record. You may view this report before your referring provider. If you have questions, please contact your health care provider. INDICATION: Fall, knee pain TECHNIQUE: Knee radiograph 2 views left COMPARISON: None FINDINGS: Bone: No acute fractures or aggressive bone lesions are identified. Moderate diffuse osteopenia is noted. Joint: The medial, lateral, and patellofemoral compartments are unremarkable. No significant knee effusion is seen. Soft tissue: Unremarkable. No radiopaque foreign bodies are seen. IMPRESSION: 1. No acute osseous injuries are noted. Dictated by: Guille Rutledge MD @ 08/28/2025 15:04:13 (Electronically Signed)
[2025-08-28 14:43] LABS: Chloride* 100 mmol/L (96-114); Sodium* 132 mmol/L (135-149)
[2025-08-28 14:44] LABS: Potassium* 4.4 mmol/L (3.6-5.1)
[2025-08-28 14:47] LABS: Anion Gap 6 mEq/L (7-15); Blood Urea Nitrogen* 21 mg/dL (7-30); Calcium* 9.0 mg/dL (8.4-10.6); Carbon Dioxide* 26 mmol/L (20-32); Creatinine* 0.8 mg/dL (0.5-1.5); Est. Creatinine Clearance* 40.83; Estimated Glomerular Filt Rate 77 ml/min; Glucose* 106 mg/dL (60-115)
--- NOTE | 2025-08-28 16:33 | P.IMHP_ITS ---
Assessment and Plan Assessment and plan (1) Closed fracture of neck of left femur: Problem comment: - plan for OR on 08/29 - chronic conditions optimized, no medical contraindication to urgent surgical intervention Status: Acute (2) GERD (gastroesophageal reflux disease): Problem comment: - on PPI Status: Acute (3) Anxiety: Problem comment: - on Escitalopram Status: Acute (4) Hypertension: Problem comment: - has normal BP at home off of medication, daughter notes falls/lightheadedness when on Metoprolol - will HOLD Metoprolol on admission 08/28, follow BPs Status: Acute (5) Rib fracture: Problem comment: - incidentally noted right to rib fracture on imaging 08/28/25; asymptomatic - notes that she felt a pop in R chest when bending into the laundry basket a few weeks ago, exam reassuring Status: Acute Plan - per above (plan for OR tomorrow, NPO midnight) Hospitalist- H&P: HPI History of Present Illness Date Seen: 08/28/25 Chief complaint: Hip Pain Narrative: Asiya Ferguson is a 74 year old female who presented to the ER after a mechanical fall (tripped over dog leash/dog in daughter's garage) onto her L side. Had immediate pain in L hip after falling and was unable to bear weight. ER Course and Findings: - L femoral neck fracture - L knee without fracture or acute abnormalities - suspicion of R lateral 7th rib on CXR (notes she felt a pop over R chest wall while bending down into laundry basket a few weeks ago, no other injury, currently has no pain) - reassuring EKG and labs (mildly low sodium at 132) History of a mechanical fall and R femoral neck fracture in 06/2023; no anesthetic or complications at that time. She is not anticoagulated. Upon arrival to the floor, Asiya continued to have severe pain despite IV Hydromorphone. Anesthesia consulted and performed an anterior femoral nerve block bedside. Review of Systems Narrative: Daughter at bedside during H&P (she is an RT); notes that Asiya was having lightheadedness and intermittent falls over the summer. They held her Metoprolol and symptoms improved. Home BPs were 130/70 off of Metoprolol. Noted to have elevated BP in clinical settings. Her Metoprolol was refilled during recent Annual PE (Asiya did not tell PCP about holding her Metoprolol over the summer). Medical Decision Making Medical Decision Making Code Status: Full Has patient completed a Health Care Directive: Yes During This Stay, Who Would You Like To Make Decisions For You In The Event You Are Unable To Make Them For Yourself?: Taj [facility] Medical History (Updated 08/28/25 @ 19:07 by Dalia Jacobs MD) Family history of ovarian cancer ?Z80.41 - Family history of malignant neoplasm of ovary (ICD-10) Bunion ?M21.619 - Bunion of unspecified foot (ICD-10) Primary osteoarthritis, left shoulder ?M19.012 - Primary osteoarthritis, left shoulder (ICD-10) Disorder of left rotator cuff ?M67.912 - Unspecified disorder of synovium and tendon, left shoulder (ICD- 10) GERD (gastroesophageal reflux disease) ?K21.9 - Gastro-esophageal reflux disease without esophagitis (ICD-10) PAC (premature atrial contraction) ?I49.1 - Atrial premature depolarization (ICD-10) Restless leg ?G25.81 - Restless legs syndrome (ICD-10) Anxiety ?F41.9 - Anxiety disorder, unspecified (ICD-10) Mild depression ?F32.A - Depression, unspecified (ICD-10) Tongue lesion ?K14.8 - Other diseases of tongue (ICD-10) Back pain ?M54.9 - Dorsalgia, unspecified (ICD-10) Fracture of left clavicle ?S42.002A - Fracture of unspecified part of left clavicle, initial encounter for closed fracture (ICD-10) Surgical History Status post open reduction and internal fixation (ORIF) of fracture ?Z98.890 - Other specified postprocedural states (ICD-10) ?Z87.81 - Personal history of (healed) traumatic fracture (ICD-10) Status post tubal ligation ?Z98.51 - Tubal ligation status (ICD-10) Family History Other Ovarian cancer Social History (Updated 08/28/25 @ 18:59 by Dalia Jacobs MD) Narrative: Retired, lives independently with Taj (MDM if needed). Nonsmoker, no concerning ETOH use. 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 What is your current living situation?: I presently have a place to live Problems where you live: no known problems Problems where you live details: n/a In the past 12 months, utilities in danger of being shut off: no In past 12 months, lack of transportation kept you from medical appts, meetings, work, or getting things needed for daily living: no In the past 12 mos, have been you worried that your food would run out before you had money to buy more?: never true In the past 12 mos, the food you bought just didn't last and you didn't have money to buy more?: never true Smoking Status: Never smoker Do you use any of these nicotine containing products: None How often do you have a drink containing alcohol: never How often do you have six or more drinks on one occasion: Never AUDIT-C Alcohol total score: 0 Non-prescribed substance use: denies use Caffeine: No How often does anyone, including family, friends and others, physically hurt you : never How often does anyone, including family, friends and others, insult or talk down to you: never How often does anyone, including family, friends and others, threaten you with harm: never How often does anyone, including family, friends and others, scream or curse at you: never service: No Meds Home Medications and Allergies Home Medications ?Medication ?Instructions ?Recorded ?Confirmed ?Type acetaminophen 500 mg capsule 500 - 1,000 mg (1 - 2 x 5 00 mg) PO 06/28/23 08/28/25 Rx Q6H PRN pain #100 caps escitalopram oxalate 20 mg tablet 20 mg PO DAILY #90 t abs 08/19/25 08/28/25 Rx metoprolol succinate 25 mg 25 mg PO DAILY #90 tabs 08/28/25 Rx tablet,extended release 24 hr omeprazole 20 mg capsule,delayed 20 mg PO DAILY 08/28/25 History release Allergies Allergy/AdvReac Type Severity Reaction Status Date / Time nitrofurantoin Allergy Unknown N/V Verified 08/28/25 13:43 Sulfa (Sulfonamide Allergy Unknown GI upset Verified 08/28/25 13:43 Antibiotics) Exam Narrative: Exam Narrative: GEN: Alert and oriented, nontoxic and answering questions appropriately HEENT: EOMIs bilaterally, no scleral icterus CV: RRR, No concerning murmurs R: LCTA bilaterally, no ttp or crepitus over R chest wall Ext: wwp, no concerning edema, normal peripheral pulses bilateral lower extremities. Normal and symmetric capillary refill of extremities Skin: No concerning skin lesions or rashes on exposed skin Neuro: No focal deficits, no resting tremor Psych: Appropriate Const: Vital Signs, click to edit/add: Vital Signs - 24 hr 08/28/25 13:51 08/28/25 14:10 08/28/25 14:15 Temperature 97.1 F L Pulse Rate 69 67 Pulse Rate [Pulse Oximeter] 74 Respiratory Rate 20 Blood Pressure Blood Pressure [Ri ght Upper Arm] 125/79 Pulse Oximetry 95 98 97 Oxygen Delivery Me thod Room Air Oxygen Flow Rate 08/28/25 14:42 08/28/25 14:45 08/28/25 15:00 Temperature Pulse Rate 68 72 71 Pulse Rate [Pulse Oximeter] Respiratory Rate Blood Pressure Blood Pressure [Ri ght Upper Arm] Pulse Oximetry 98 99 98 Oxygen Delivery Me thod Oxygen Flow Rate 08/28/25 15:01 08/28/25 15:02 08/28/25 15:15 Temperature Pulse Rate 69 69 74 Pulse Rate [Pulse Oximeter] Respiratory Rate Blood Pressure 148/83 H Blood Pressure [Ri ght Upper Arm] Pulse Oximetry 98 97 96 Oxygen Delivery Me thod Oxygen Flow Rate 08/28/25 15:30 08/28/25 15:32 08/28/25 15:33 Temperature Pulse Rate 72 72 72 Pulse Rate [Pulse Oximeter] Respiratory Rate Blood Pressure 143/69 H Blood Pressure [Ri ght Upper Arm] Pulse Oximetry 88 92 92 Oxygen Delivery Me thod Oxygen Flow Rate 08/28/25 15:45 08/28/25 16:00 08/28/25 16:01 Temperature Pulse Rate 77 78 75 Pulse Rate [Pulse Oximeter] Respiratory Rate Blood Pressure 166/92 H Blood Pressure [Ri ght Upper Arm] Pulse Oximetry 90 88 89 Oxygen Delivery Me thod Oxygen Flow Rate 08/28/25 16:15 Temperature Pulse Rate 77 Pulse Rate [Pulse Oximeter] Respiratory Rate Blood Pressure Blood Pressure [Ri ght Upper Arm] Pulse Oximetry 94 Oxygen Delivery Me thod Nasal Cannula Oxygen Flow Rate 1 Hospitalist - H&P: Result Labs Labs: Short CBC 08/28/25 Range/Units 14:12 WBC 9.48 (4.50-11.00) K/uL Hgb 12.5 (12.0-16.0) gm/dL Hct 38.2 (33.0-51.0) % Plt Count 208 (140-440) K/uL BMP 08/28/25 14:12 Sodium 132 L Potassium 4.4 Chloride 100 Carbon Dioxide 26 BUN 21 Creatinine 0.8 Glucose 106 Calcium 9.0
[2025-08-28] MEDS: ACETAMINOPHEN 500 MG TABLET 1000 MG PO ×2 (17:23→22:52)
--- NOTE | 2025-08-28 18:08 | P.NB_ITS ---
Nerve Block Nerve Block Time Seen by Provider: 17:40 Date Seen: 08/28/25 Type of block requested by surgeon for post-operative analgesia: CHAR/LFCN Side: left Time out performed: Yes Verification of patient name: Yes Verification of date of : Yes Site marking: site marked Name of person performing procedure: Ervin Tatum Continuous monitoring Was continuous monitoring of O2 sat, B/P, monitoring manager, recorded every 15 minutes?: Yes Procedure Checklist: sterile prep, needles and gloves Ultrasound guided. Images saved: Yes Medications given in 5ml increments after negative aspiration: Ropivicaine %: 0.5 mL: 30 Needle gauge: 20 Precedex (mcg): 25 Patient tolerated procedure well: Yes Additional comments: NPO status verified. No sedation given. Written consent obtained. EKG, SpO2, ETCO2, and BP monitoring during and after procedure. Injected in 5 mL increments after negative aspiration. Block Charges Block Charge (with Pro Fee): Femoral Nerve Use of Ultrasound Machine for Block: Yes- US Guidance/pain block
[2025-08-28] MEDS: SODIUM CHLORIDE 0.9 % (FLUSH) 10 ML SYRINGE 5 ML IVF (22:52)
[2025-08-29] VITALS (22 sets, daily range): BP systolic 99–162; BP diastolic 60–112; PULSE 70–104; RESP 12–18; TEMP 36.2–37.1; O2SAT 82–100
[2025-08-29] MEDS: ACETAMINOPHEN 500 MG TABLET 1000 MG PO (05:02)
[2025-08-29 07:00] LABS: Hematocrit* 38.5 % (33.0-51.0); Hemoglobin* 12.7 gm/dL (12.0-16.0); Immature Granulocytes Abs Auto 0.02 K/uL (0.00-0.30); Immature Granulocytes Pct Auto 0.2 %; Mean Corpuscular HGB Conc 33 gm/dL (32-36); Mean Corpuscular Hemoglobin 32 pg (26-34); Mean Corpuscular Volume 96 fL (80-100); RDW Coefficient of Variation % 11.9 % (11.5-15.5); Red Blood Count* 4.01 m/uL (4.00-5.20); White Blood Count* 8.87 K/uL (4.50-11.00)
[2025-08-29 07:02] LABS: Lymphocytes Absolute Auto 1.60 K/uL (0.90-2.90); Slide Review Reflex No
[2025-08-29 07:15] LABS: Chloride* 101 mmol/L (96-114); Potassium* 4.0 mmol/L (3.6-5.1); Sodium* 134 mmol/L (135-149)
[2025-08-29 07:18] LABS: Blood Urea Nitrogen* 27 mg/dL (7-30); Creatinine* 0.8 mg/dL (0.5-1.5); Est. Creatinine Clearance* 40.83; Estimated Glomerular Filt Rate 77 ml/min
[2025-08-29 07:19] LABS: Anion Gap 8 mEq/L (7-15); Calcium* 9.1 mg/dL (8.4-10.6); Carbon Dioxide* 25 mmol/L (20-32); Glucose* 111 mg/dL (60-115)
--- NOTE | 2025-08-29 07:34 | PC.NURSE ---
End of shift [id number]: Pt AxOx3, cooperative, and pleasant with care. Reports pain to the hip that is managed with medication and repositioning. Required 1L oxygen NC during resting periods to remain with sats >90%. Purewick in place. Call light within reach.
[2025-08-29] MEDS: ESCITALOPRAM 10 MG TABLET 20 MG PO (09:09)
[2025-08-29] MEDS: OMEPRAZOLE 20 MG CAPSULE DR PO (09:10)
[2025-08-29] MEDS: SODIUM CHLORIDE 0.9 % (FLUSH) 10 ML SYRINGE 5 ML IVF ×3 (09:11→20:45)
--- NOTE | 2025-08-29 10:52 | PM.ORCN ---
History of Present Illness HPI Date Seen: 08/29/25 Consult date: 08/28/25 Chief complaint: Hip Pain Narrative: Asiya is a pleasant 74 year old female who presented to the ER after a mechanical fall (slipped/tripped on dog leash in daughter's garage) onto her left side. Had immediate pain in left hip after falling and was unable to bear weight. She presented [facility]. X-rays were obtained. Revealed a displaced left femoral neck fracture. She was admitted to the hospitalist overnight. Orthopedics was consulted to consider surgical fixation for the left femoral neck fracture. History of a right hip cemented bipolar hemiarthroplasty for femoral neck fracture in 06/2023(Dr. Rubio Christie) after mechanical fall; no anesthetic or complications at that time. She is not anticoagulated. [facility] Medical History (Updated 08/28/25 @ 19:07 by Dalia Jacobs MD) Family history of ovarian cancer ?Z80.41 - Family history of malignant neoplasm of ovary (ICD-10) Bunion ?M21.619 - Bunion of unspecified foot (ICD-10) Primary osteoarthritis, left shoulder ?M19.012 - Primary osteoarthritis, left shoulder (ICD-10) Disorder of left rotator cuff ?M67.912 - Unspecified disorder of synovium and tendon, left shoulder (ICD-10) GERD (gastroesophageal reflux disease) ?K21.9 - Gastro-esophageal reflux disease without esophagitis (ICD-10) PAC (premature atrial contraction) ?I49.1 - Atrial premature depolarization (ICD-10) Restless leg ?G25.81 - Restless legs syndrome (ICD-10) Anxiety ?F41.9 - Anxiety disorder, unspecified (ICD-10) Mild depression ?F32.A - Depression, unspecified (ICD-10) Tongue lesion ?K14.8 - Other diseases of tongue (ICD-10) Back pain ?M54.9 - Dorsalgia, unspecified (ICD-10) Fracture of left clavicle ?S42.002A - Fracture of unspecified part of left clavicle, initial encounter for closed fracture (ICD-10) Surgical History Status post open reduction and internal fixation (ORIF) of fracture ?Z98.890 - Other specified postprocedural states (ICD-10) ?Z87.81 - Personal history of (healed) traumatic fracture (ICD-10) Status post tubal ligation ?Z98.51 - Tubal ligation status (ICD-10) Family History Other Ovarian cancer Social History Narrative: Retired, lives independently with Taj (MDM if needed). Nonsmoker, no concerning ETOH use. 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 What is your current living situation?: I presently have a place to live Problems where you live: no known problems Problems where you live details: n/a In the past 12 months, utilities in danger of being shut off: no In past 12 months, lack of transportation kept you from medical appts, meetings, work, or getting things needed for daily living: no In the past 12 mos, have been you worried that your food would run out before you had money to buy more?: never true In the past 12 mos, the food you bought just didn't last and you didn't have money to buy more?: never true Smoking Status: Never smoker Do you use any of these nicotine containing products: None How often do you have a drink containing alcohol: never How often do you have six or more drinks on one occasion: Never AUDIT-C Alcohol total score: 0 Non-prescribed substance use: denies use Caffeine: No How often does anyone, including family, friends and others, physically hurt you: never How often does anyone, including family, friends and others, insult or talk down to you: never How often does anyone, including family, friends and others, threaten you with harm: never How often does anyone, including family, friends and others, scream or curse at you: never service: No Meds Home Medications and Allergies Home Medications ?Medication ?Instructions ?Recorded ?Confirmed ?Type acetaminophen 500 mg capsule 500 - 1,000 mg (1 - 2 x 500 mg) PO 06/28/23 08/28/25 Rx Q6H PRN pain #100 caps escitalopram oxalate 20 mg tablet 20 mg PO DAILY #90 tabs 08/19/25 08/28/25 Rx metoprolol succinate 25 mg 25 mg PO DAILY #90 tabs 08/19/25 08/28/25 Rx tablet,extended release 24 hr omeprazole 20 mg capsule,delayed 20 mg PO DAILY 08/19/25 08/28/25 History release Allergies Allergy/AdvReac Type Severity Reaction Status Date / Time nitrofurantoin Allergy Unknown N/V Verified 08/28/25 13:43 Sulfa (Sulfonamide Allergy Unknown GI upset Verified 08/28/25 13:43 Antibiotics) Ortho Exam Narrative Exam Narrative: She is alert and orient x3. Cooperative with the exam. In no acute distress. Nonlabored breathing. Lying supine in hospital bed comfortably. Left hip exam shows no lacerations or abrasions. No other cutaneous changes about the left hip. There is pain about the left groin with any hip or knee range of motion. Distally, neurologic intact in the superficial and deep peroneal as well as plantar distribution to sensory light touch and motor function. 2+ DP and PT pulse. Strength and stability testing about the left hip deferred. Gait and station also deferred. Const Vital Signs, click to edit/add: Vital Signs - 24 hr 08/28/25 13:51 08/28/25 14:10 08/28/25 14:15 Temperature 97.1 F L Pulse Rate 69 67 Pulse Rate [Pulse Oximeter] 74 Respiratory Rate 20 Blood Pressure Blood Pressure [Right Arm] Blood Pressure [Right Upper Arm] 125/79 Pulse Oximetry 95 98 97 Oxygen Delivery Method Room Air Oxygen Flow Rate 08/28/25 14:42 08/28/25 14:45 08/28/25 15:00 Temperature Pulse Rate 68 72 71 Pulse Rate [Pulse Oximeter] Respiratory Rate Blood Pressure Blood Pressure [Right Arm] Blood Pressure [Right Upper Arm] Pulse Oximetry 98 99 98 Oxygen Delivery Method Oxygen Flow Rate 08/28/25 15:01 08/28/25 15:02 08/28/25 15:15 Temperature Pulse Rate 69 69 74 Pulse Rate [Pulse Oximeter] Respiratory Rate Blood Pressure 148/83 H Blood Pressure [Right Arm] Blood Pressure [Right Upper Arm] Pulse Oximetry 98 97 96 Oxygen Delivery Method Oxygen Flow Rate 08/28/25 15:30 08/28/25 15:32 08/28/25 15:33 Temperature Pulse Rate 72 72 72 Pulse Rate [Pulse Oximeter] Respiratory Rate Blood Pressure 143/69 H Blood Pressure [Right Arm] Blood Pressure [Right Upper Arm] Pulse Oximetry 88 92 92 Oxygen Delivery Method Oxygen Flow Rate 08/28/25 15:45 08/28/25 16:00 08/28/25 16:01 Temperature Pulse Rate 77 78 75 Pulse Rate [Pulse Oximeter] Respiratory Rate Blood Pressure 166/92 H Blood Pressure [Right Arm] Blood Pressure [Right Upper Arm] Pulse Oximetry 90 88 89 Oxygen Delivery Method Oxygen Flow Rate 08/28/25 16:15 08/28/25 16:45 08/28/25 16:45 Temperature 99.3 F Pulse Rate 77 Pulse Rate [Pulse Oximeter] Respiratory Rate 17 20 Blood Pressure Blood Pressure [Right Arm] 136/77 Blood Pressure [Right Upper Arm] Pulse Oximetry 94 92 94 Oxygen Delivery Method Nasal Cannula Room Air Nasal Cannula Oxygen Flow Rate 1 08/28/25 19:37 08/28/25 21:05 08/28/25 22:59 Temperature 98.1 F 97.9 F Pulse Rate Pulse Rate [Pulse Oximeter] 71 74 Respiratory Rate 18 18 Blood Pressure Blood Pressure [Right Arm] 108/53 L 117/76 116/66 Blood Pressure [Right Upper Arm] Pulse Oximetry 92 93 Oxygen Delivery Method Room Air Nasal Cannula Oxygen Flow Rate 1 08/28/25 23:00 08/29/25 02:45 08/29/25 07:00 Temperature 98 F 97.1 F L Pulse Rate Pulse Rate [Pulse Oximeter] 80 81 Respiratory Rate 18 16 18 Blood Pressure Blood Pressure [Right Arm] 111/74 114/78 Blood Pressure [Right Upper Arm] Pulse Oximetry 93 92 92 Oxygen Delivery Method Nasal Cannula Room Air Room Air Oxygen Flow Rate 1 08/29/25 07:00 08/29/25 07:00 Temperature Pulse Rate Pulse Rate [Pulse Oximeter] 81 Respiratory Rate Blood Pressure Blood Pressure [Right Arm] Blood Pressure [Right Upper Arm] Pulse Oximetry 92 Oxygen Delivery Method Room Air Oxygen Flow Rate Results Labs Labs: Laboratory Results - last 48 hr 08/28/25 08/29/25 14:12 06:10 WBC 9.48 8.87 RBC 4.04 4.01 Hgb 12.5 12.7 Hct 38.2 38.5 MCV 95 96 MCH 31 32 MCHC 33 33 RDW Coeff of Mary 11.7 11.9 Plt Count 208 172 Neut % (Auto) 74.5 H 68.4 Lymph % (Auto) 16.5 L 18.4 L Band[place] % (Auto) 7.2 10.5 Eos % (Auto) 1.2 2.0 Baso % (Auto) 0.3 0.5 Neut # (Auto) 7.10 H 6.07 Lymph # (Auto) 1.60 1.60 Band[place] # (Auto) 0.70 0.90 Eos # (Auto) 0.11 0.18 Baso # (Auto) 0.03 0.04 Abs Immat Gran (auto) 0.03 0.02 Imm/Tot Granulo (auto) 0.3 0.2 Sodium 132 L 134 L Potassium 4.4 4.0 Chloride 100 101 Carbon Dioxide 26 25 Anion Gap 6 L 8 BUN 21 27 Creatinine 0.8 0.8 Estimated Creat Clear 40.83 40.83 Estimated GFR 77 77 Glucose 106 111 Calcium 9.0 9.1 Diagnostic results Additional Comments: The following radiographs were obtained at [facility] dated 08/28/2025. These were ordered by different provider and reviewed by me as follows: 1. AP pelvis and AP and cross-table lateral views left hip. Demonstrates left displaced femoral neck fracture. Acute appearing. Well-preserved hip joint space otherwise. Incidentally, cemented right hip bipolar hemiarthroplasty in an appropriate position. No periosteal reactions or periprosthetic fractures evident. 2. 2 radiographic views left knee showing no acute fractures, avulsions, or intraosseous pathology. Unremarkable soft tissue findings. No significant effusion. Assessment and Plan Assessment and plan (1) Closed fracture of neck of left femur: Problem comment: - plan for OR on 08/29 - chronic conditions optimized, no medical contraindication to urgent surgical intervention Status: Acute Total time spent: Total time spent is greater than 50% in coordination of care (as documented) at patient's floor/unit and/or counseling patient: (2) GERD (gastroesophageal reflux disease): Problem comment: - on PPI Status: Acute Total time spent: Total time spent is greater than 50% in coordination of care (as documented) at patient's floor/unit and/or counseling patient: (3) Anxiety: Problem comment: - on Escitalopram Status: Acute Total time spent: Total time spent is greater than 50% in coordination of care (as documented) at patient's floor/unit and/or counseling patient: (4) Hypertension: Problem comment: - has normal BP at home off of medication, daughter notes falls/lightheadedness when on Metoprolol - will HOLD Metoprolol on admission 08/28, follow BPs Status: Acute Total time spent: Total time spent is greater than 50% in coordination of care (as documented) at patient's floor/unit and/or counseling patient: (5) Rib fracture: Problem comment: - incidentally noted right to rib fracture on imaging 08/28/25; asymptomatic - notes that she felt a pop in R chest when bending into the laundry basket a few weeks ago, exam reassuring Status: Acute Total time spent: Total time spent is greater than 50% in coordination of care (as documented) at patient's floor/unit and/or counseling patient: Plan I had a discussion with today with the patient. Helped her understand her pathology. She is very familiar with the options as she previously underwent a right hip bipolar hemiarthroplasty 06/2023 (Dr. Rubio Christie). If she did well following the surgery. She understands the pros and cons of both nonoperative and surgical intervention. Nonetheless, I reiterated these pros and cons to her today. This includes local risks (e.g. Infection, wound healing issues, [aseptic loosening, instability, fracture]) as well as systemic risks (e.g. VTE, MT, stroke). She states understanding. Indeed, she would like to proceed with a left hip bipolar hemiarthroplasty. While cementing is an option, I think a Press-Fit is also quite reasonable given the appearance of her cortical bone on the proximal femur. This will be re-evaluated during the surgery. I was able to also coordinate care with the anesthesia team regarding her planned surgery for later today (08/29/2025).
--- NOTE | 2025-08-29 13:00 | CRLHL7_ITS ---
For Patients: As a result of the Cures Act, medical imaging exams and procedure reports are released immediately into your electronic medical record. You may view this report before your referring provider. If you have questions, please contact your health care provider. Indication: Hip replacement surgery Technique: AP hip fluoroscopic image. Fluoroscopy time 15.2 seconds. Findings/Impression: Hardware from a left bipolar hip arthroplasty is in satisfactory position. Dictated by Gil Boles MD @ 08/30/2025 8:41:39 AM (Electronically Signed)
--- NOTE | 2025-08-29 13:07 | P.IMPN_ITS ---
Assessment and Plan Assessment and plan (1) Closed fracture of neck of left femur: Problem comment: - plan for OR on 08/29 afternoon - chronic conditions optimized, EKG and chest x-ray reviewed, no medical contraindication to urgent surgical intervention, no further cardiovascular workup needed prior to surgery Status: Acute (2) Rib fracture: Problem comment: - incidentally noted right to rib fracture on imaging 08/28/25; asymptomatic - notes that she felt a pop in R chest when bending into the laundry basket a few weeks ago, exam reassuring - 08/29 not complaining of pain in chest. No hypoxia or tachypnea. Monitor. Status: Acute (3) GERD (gastroesophageal reflux disease): Problem comment: - on PPI Status: Chronic (4) Anxiety: Problem comment: - on Escitalopram Status: Chronic (5) Hypertension: Problem comment: - has normal BP at home off of medication, daughter notes falls/lightheadedness when on Metoprolol - will HOLD Metoprolol on admission 08/28, follow BPs - 08/29 BP good control, continue to hold metoprolol Status: Chronic Subjective Time Seen by Provider: 09:10 Date Seen: 08/29/25 Interval history: Asiya's pain is well controlled this morning. She is anticipating surgery this afternoon and tells me her ortho surgeon was just in there seeing her. She denies CP or h/o CP. She has chronic h/o dyspnea on exertion going up half a flight of stairs or half a block on even ground that has been going on for about 2 years (she says since her last hip surgery here). She says she had an ECHO four years ago, which was okay. Exam Narrative: Exam Narrative: General: No acute distress. Awake, alert, oriented x3. No pallor. No jaundice. Oropharynx: Clear. Mucous membranes moist. Cardiovascular: Regular rate and rhythm. No murmurs, gallops, or rubs. Respiratory: Clear to auscultation bilaterally. No wheezes or crackles. Abdomen: Bowel sounds present. Soft, nondistended, nontender. Extremities: Left lower extremity shortened and externally rotated, no ecchymosis or edema. Const: Vital Signs, click to edit/add: Vital Signs - 24 hr 08/28/25 13:51 08/28/25 14:10 08/28/25 14:15 Temperature 97.1 F L Pulse Rate 69 67 Pulse Rate [Pulse Oximeter] 74 Respiratory Rate 20 Blood Pressure Blood Pressure [Ri ght Arm] Blood Pressure [Ri ght Upper Arm] 125/79 Pulse Oximetry 95 98 97 Oxygen Delivery Me thod Room Air Oxygen Flow Rate 08/28/25 14:42 08/28/25 14:45 08/28/25 15:00 Temperature Pulse Rate 68 72 71 Pulse Rate [Pulse Oximeter] Respiratory Rate Blood Pressure Blood Pressure [Ri ght Arm] Blood Pressure [Ri ght Upper Arm] Pulse Oximetry 98 99 98 Oxygen Delivery Me thod Oxygen Flow Rate 08/28/25 15:01 08/28/25 15:02 08/28/25 15:15 Temperature Pulse Rate 69 69 74 Pulse Rate [Pulse Oximeter] Respiratory Rate Blood Pressure 148/83 H Blood Pressure [Ri ght Arm] Blood Pressure [Ri ght Upper Arm] Pulse Oximetry 98 97 96 Oxygen Delivery Me thod Oxygen Flow Rate 08/28/25 15:30 08/28/25 15:32 08/28/25 15:33 Temperature Pulse Rate 72 72 72 Pulse Rate [Pulse Oximeter] Respiratory Rate Blood Pressure 143/69 H Blood Pressure [Ri ght Arm] Blood Pressure [Ri ght Upper Arm] Pulse Oximetry 88 92 92 Oxygen Delivery Me thod Oxygen Flow Rate 08/28/25 15:45 08/28/25 16:00 08/28/25 16:01 Temperature Pulse Rate 77 78 75 Pulse Rate [Pulse Oximeter] Respiratory Rate Blood Pressure 166/92 H Blood Pressure [Ri ght Arm] Blood Pressure [Ri ght Upper Arm] Pulse Oximetry 90 88 89 Oxygen Delivery Me thod Oxygen Flow Rate 08/28/25 16:15 08/28/25 16:45 08/28/25 16:45 Temperature 99.3 F Pulse Rate 77 Pulse Rate [Pulse Oximeter] Respiratory Rate 17 20 Blood Pressure Blood Pressure [Ri ght Arm] 136/77 Blood Pressure [Ri ght Upper Arm] Pulse Oximetry 94 92 94 Oxygen Delivery Me thod Nasal Cannula Room Air Nasal Cannula Oxygen Flow Rate 1 08/28/25 19:37 08/28/25 21:05 08/28/25 22:59 Temperature 98.1 F 97.9 F Pulse Rate Pulse Rate [Pulse Oximeter] 71 74 Respiratory Rate 18 18 Blood Pressure Blood Pressure [Ri ght Arm] 108/53 L 117/76 116/66 Blood Pressure [Ri ght Upper Arm] Pulse Oximetry 92 93 Oxygen Delivery Me thod Room Air Nasal Cannula Oxygen Flow Rate 1 08/28/25 23:00 08/29/25 02:45 08/29/25 07:00 Temperature 98 F 97.1 F L Pulse Rate Pulse Rate [Pulse Oximeter] 80 81 Respiratory Rate 18 16 18 Blood Pressure Blood Pressure [Ri ght Arm] 111/74 114/78 Blood Pressure [Ri ght Upper Arm] Pulse Oximetry 93 92 92 Oxygen Delivery Me thod Nasal Cannula Room Air Room Air Oxygen Flow Rate 1 08/29/25 07:00 08/29/25 07:00 08/29/25 11:00 Temperature 98.7 F Pulse Rate Pulse Rate [Pulse Oximeter] 81 78 Respiratory Rate 18 Blood Pressure Blood Pressure [Ri ght Arm] 126/71 Blood Pressure [Ri ght Upper Arm] Pulse Oximetry 92 95 Oxygen Delivery Me thod Room Air Room Air Oxygen Flow Rate Labs Labs: Laboratory Results - last 24 hr 08/28/25 08/29/25 14:12 06:10 WBC 9.48 8.87 RBC 4.04 4.01 Hgb 12.5 12.7 Hct 38.2 38.5 MCV 95 96 MCH 31 32 MCHC 33 33 RDW Coeff of Mary 11.7 11.9 Plt Count 208 172 Neut % (Auto) 74.5 H 68.4 Lymph % (Auto) 16.5 L 18.4 L Murray % (Auto) 7.2 10.5 Eos % (Auto) 1.2 2.0 Baso % (Auto) 0.3 0.5 Neut # (Auto) 7.10 H 6.07 Lymph # (Auto) 1.60 1.60 Murray # (Auto) 0.70 0.90 Eos # (Auto) 0.11 0.18 Baso # (Auto) 0.03 0.04 Abs Immat Gran (auto) 0.03 0.02 Imm/Tot Granulo (auto) 0.3 0.2 Sodium 132 L 134 L Potassium 4.4 4.0 Chloride 100 101 Carbon Dioxide 26 25 Anion Gap 6 L 8 BUN 21 27 Creatinine 0.8 0.8 Estimated Creat Clear 40.83 40.83 Estimated GFR 77 77 Glucose 106 111 Calcium 9.0 9.1
[2025-08-29] MEDS: LACTATED RINGERS 1000 ML 1,000 ML 100 ML IV ×2 (13:45→15:00)
--- NOTE | 2025-08-29 14:17 | CRLHL7_ITS ---
For Patients: As a result of the Cures Act, medical imaging exams and procedure reports are released immediately into your electronic medical record. You may view this report before your referring provider. If you have questions, please contact your health care provider. Indication: POST OP LEFT BIPOLAR HIP Technique: AP hip centered pelvis and lateral view left hip Findings/Impression: Hardware from a left bipolar hip arthroplasty is in satisfactory position. Bone alignment is normal. No sign of acute fracture. Postop changes are within normal limits. Dictated by Gil Boles MD @ 08/30/2025 8:43:47 AM (Electronically Signed)
[2025-08-29] MEDS: TRANEXAMIC ACID 100 MG/ML INJ 1000 MG IV (14:50)
--- NOTE | 2025-08-29 14:59 | PC.NURSE ---
End of shift 257? ? Patient was very pleasant and cooperative throughout shift. Admitted after a fall. Left hip fx. VSS. A&Ox4. Afebrile. NPO before procedure. ?
--- NOTE | 2025-08-29 16:47 | P.ORPRC_ITS ---
Procedure Note Date of procedure: 08/29/25 Procedure: PREOPERATIVE DIAGNOSIS: 1. Left femoral neck fracture, displaced POSTOPERATIVE DIAGNOSIS: 1. Left femoral neck fracture, displaced PROCEDURE: 1. Left hip bipolar hemiarthroplasty, anterior approach - of note, 25% added time and difficulty for this case due to the comminution around the femoral neck fracture site including extension approaching the calcar compromising stability of the stem and warranting a cerclage cable around the calcar region. 2. Intraoperative fluoroscopy interpreted by Blayne Rodriguez M.D. for intraoperative evaluation of hip hemiarthroplasty implant positioning and leg length/offset evaluation. Fluoroscopy time was 15.2 seconds. SURGEON: Blayne Rodriguez MD. ASSISTANT PROFESSOR OF PHILOSOPHY: Juan Jose Perez PA-C; ZE Castanon - Of note, skilled assistants were critical for this case to aid in patient positioning, tissue retraction, limb manipulation/positioning, and closure. ANESTHESIA: Spinal anesthetic EBL: 500 ml IMPLANTS: DePuy J&J uncemented right hip bipolar hemiarthroplasty; super cerclage cable (x1) Femoral Actis standard offset stem, size 5 Bipolar head with 28 mm inner diameter metal ball (+5) Polyethylene interface and 45 mm outer metal shell. COMPLICATIONS: No overt complications identified during the surgery. Extension of the fracture was identified into the posterior medial calcar region and felt prudent to place a cerclage cable to ensure stability of the calcar. INDICATIONS: The patient is a pleasant 74-year-old female who initially sustained a left hip injury recently after a fall from a standing height falling onto the affected side. This resulted in a displaced femoral neck fracture. Given previous ambulatory status and current pain for the patient along with dysfunction, surgery is indicated for a hip hemiarthroplasty. FINDINGS: Displaced left femoral neck fracture. Well-preserved articular cartilage within the acetabulum. Comminuted femoral neck fracture. Extension of the fracture into the posterior medial calcar region. DESCRIPTION OF PROCEDURE: Following a thorough discussion of risks, benefits, and alternatives consent was obtained and the left hip was marked. The patient was brought to the operating room and placed supine on the operating table. Induction of anesthesia was undertaken. 2 g IV Ancef and 1 g tranexamic acid was administered within 1 hr of incision preoperatively. Proper time-out was performed identifying proper patient, site, procedure. The operative extremity was prepped and draped in the appropriate sterile fashion using ChloraPrep after the patient was positioned on the [place] table with head in neutral alignment and all bony prominences well padded. A longitudinal incision was made starting approximately 1 cm distal to the ASIS, and 2-3 cm lateral. The incision was extended distally aiming toward the fibular head. Sharp incision through skin and bovie cautery through the subcutaneous tissue allowed identification of the TFL fascia. This was sharply divided, and the fascia bluntly released from the muscle fibers as we dissected medial. Upon coming to the medial border, we were able to retract the TFL laterally, and penetrated the deeper fascia and identify the crossing circumflex vessels. These were ligated/cauterized. The rectus was elevated from the capsule, and retractors placed laterally and medially along the femoral neck to help with visualization of the capsule. We then performed an inverted T capsulotomy. The capsule was tagged for later repair. Retractors were placed inside the capsule. The femoral neck was visualized after releasing medially down to the lesser trochanter, along the saddle laterally, and approaching the acetabulum. The femoral neck cut was freshened with a sagittal saw. The head was removed in a single piece, and sized. Multiple other fracture fragments required removal with the rongeur. The acetabulum was inspected and found to be in excellent condition with healthy articular cartilage. Any remaining bony fracture fragments were removed. The ligamentum was excised. Attention was turned to the femoral preparation. The limb was extended, externally rotated, and adducted. The posteromedial capsule was released, as retractors were placed allowing excellent access to the proximal femur. Initially a press box custodian was utilized, then a canal finder, followed by a rasp and sequentially larger broaches. We broached up to the size noted above and found it to have excellent rotational control. Various head/neck combinations were trialed with a goal of matching the contralateral limbs leg length and offset, as confirmed with intraoperative fluoroscopy. Stability was not initially achieved as there appeared to be an extension of the fracture into the posterior medial calcar region. It was not overtly unstable, but felt prudent to place a cerclage cable to stabilize this in order to avoid splitting of this further distal. Therefore, a super cable was passed around the calcar just proximal to lesser trochanter and secured in a limited fashion temporarily, the real stem was opened and inserted, then the cerclage cable was tensioned fully. It appeared to have good support of the calcar. The stem was reassessed and found to be stable. Closure of the capsule was performed with #1 PDS. Bleeding was confirmed to be controlled at this stage, and the TFL fascia was closed with #0 strata fix. Subcutaneous, and subcuticular closure was performed with 2-0 Stratafix and 4-0 Stratafix, respectively. Dressings were applied, and the patient was awoken from anesthesia and transferred the PACU in stable condition. Skilled assistants were critical for this case to aid in patient positioning, tissue retraction, acetabular and proximal femoral exposure, limb manipulation/positioning, dislocation/relocation, patient safety, and closure. *Again, 25% added time and difficulty for this case due to the comminution around the femoral neck fracture site including extension approaching the calcar compromising stability of the stem and warranting a cerclage cable around the calcar region. PLAN: 1. Weight bear as tolerated operative extremity. 2. 23 hr perioperative antibiotics. 3. Ice. 4. PT/OT consults for ambulation assistance/mobility education. 5. Social work consult for discharge planning. 6. DVT prophylaxis with at SCDs and Xarelto x5 days followed by aspirin for a total of 1 month.
--- NOTE | 2025-08-29 17:03 | P.ANES_ITS ---
Anesthesia Charges Start Date/Time Anesthesia Start Date: 08/29/25 Anesthesia Start Time: 13:45 Stop Date/Time Anesthesia Stop Date: 08/29/25 Anesthesia Stop Time: 17:09 Summary Extremes of Age - Over 70 or under 1: MEDICAL ECONOMICS CONSULTANT Coding CPT Codes CPT Codes: ANESTH HIP ARTHROPLASTY - 32050 ([id number]) P2 - PATIENT W/MILD SYST DISEASE, QZ - MEDICAL ECONOMICS CONSULTANT SVC W/O NUCLEAR MEDICINE SPECIALIST BY Additional Codes: Summary - Extremes of Age - Over 70 or under 1: MEDICAL ECONOMICS CONSULTANT ([id number])
--- NOTE | 2025-08-29 17:03 | W.ANESCHARGE ---
Anesthesia Charges Start Date/Time Anesthesia Start Date: 08/29/25 Anesthesia Start Time: 13:45 Stop Date/Time Anesthesia Stop Date: 08/29/25 Anesthesia Stop Time: 17:09 Summary Extremes of Age - Over 70 or under 1: DOCUMENTATION WRITER Coding CPT Codes CPT Codes: ANESTH HIP ARTHROPLASTY - 95550 ([id number]) P2 - PATIENT W/MILD SYST DISEASE, QZ - DOCUMENTATION WRITER SVC W/O HEAVY EQUIPMENT SERVICE TECHNICIAN BY Additional Codes: Summary - Extremes of Age - Over 70 or under 1: DOCUMENTATION WRITER ([id number])
--- NOTE | 2025-08-29 17:33 | SUR.PHASEI ---
Patient denies pain and nausea when entering PACU and also 20 minutes into PACU.
--- NOTE | 2025-08-29 17:41 | SUR.PHASEI ---
Patient meets discharge criteria from PACU
--- NOTE | 2025-08-29 19:22 | PC.NURSE ---
fresh post op, discussed pain management and post op expectations.
--- NOTE | 2025-08-29 19:41 | PC.NURSE ---
Nursing Care Hours: [id number] Pt arrived to floor drowsy but oriented. No c/o pain. Required supplemental O2, titrate down to RA. Pt spo2 still below 90% even with using IS. O.5L O2 being used. CMS intact, bandage CDI. Purewick changed and set up. No void. Tolerating bites of ice.
[2025-08-29] MEDS: CEFAZOLIN 2 GM in 0.9 % SODIUM CHLORIDE Mini-bag 100 ML IVPB (20:44)
[2025-08-29] MEDS: SENNOSIDES 1 TAB TABLET 2 TAB PO (20:44)
[2025-08-30 00:26] VITALS: RESP 16; O2SAT 91
[2025-08-30 00:29] VITALS: BP 142/90; PULSE 91; RESP 16; TEMP 37; O2SAT 91
[2025-08-30] MEDS: ACETAMINOPHEN 500 MG TABLET 1000 MG PO ×2 (01:09→06:29)
[2025-08-30 03:01] VITALS: BP 147/89; PULSE 108; RESP 18; O2SAT 91
[2025-08-30] MEDS: CEFAZOLIN 2 GM in 0.9 % SODIUM CHLORIDE Mini-bag 100 ML IVPB ×2 (04:19→11:57)
--- NOTE | 2025-08-30 05:04 | PC.NURSE ---
Shift note: Pt up to BR x2 assist w/ GB & walker. Afebrile. Pt tolerating regular diet. Saline locked. SCDs in place throughout HS. Pt L hip incision site dressing C/D/I. Pt denies nausea & vomiting.? ?
[2025-08-30 07:00] VITALS: BP 125/82; PULSE 102; RESP 18; TEMP 37.1; O2SAT 95
[2025-08-30] MEDS: OMEPRAZOLE 20 MG CAPSULE DR PO (08:15)
[2025-08-30] MEDS: ESCITALOPRAM 10 MG TABLET 20 MG PO (08:15)
[2025-08-30] MEDS: RIVAROXABAN 10 MG TABLET PO (08:16)
--- NOTE | 2025-08-30 10:07 | P.ORPN_ITS ---
Subjective Subjective Date Seen: 08/30/25 Principal diagnosis: POD1 left hip bipolar hemiarthroplasty for displaced femoral neck fracture Interval history: Patient reports doing okay. No acute events over night. Pain managed with scheduled and PRN medications, ice. DVT prophylaxis: Rivaroxaban, SCDs, walking. Denies fevers, chills, aches, N/V, CP, SOB/SAENZ, or lightheadedness. Able to use bathroom with assist of 1 this morning. Walking with her walker wit hout significant issue. States that her heart rate can be elevated due to anxiety, but is denying any palpitations or chest fluttering. Ortho Exam Narrative Exam Narrative: -Patient appears comfortable walking with her walker in patient room, and sitting in recliner. No apparent acute distress -Alert and oriented times 3 -Operative hip swollen; soft tissues supple; no obvious erythema. Ecchymosis minimal. Warmth appropriate -Surgical dressing clean, dry, intact; no obvious drainage, no erythematous streaking peripheral to the bandage -Bilateral calves soft and supple; no significant swelling, edema, tenderness, erythema, discoloration, warmth, or palpable cords -2+ DP/PT pulses, intact dermatomes and myotomes distally (5/5 strength). No numbness about the lateral femoral cutaneous nerve distribution. Const Vital Signs, click to edit/add: Vital Signs - 24 hr 08/29/25 11:00 08/29/25 17:09 08/29/25 17:15 Temperature 98.7 F 97.7 F Pulse Rate 73 86 Pulse Rate [Pulse Oximeter] 78 Respiratory Rate 18 17 16 Blood Pressure 107/66 115/78 Blood Pressure [Right Arm] 126/71 Pulse Oximetry 95 90 98 Oxygen Delivery Method Room Air Room Air Aerosol Mask Oxygen Flow Rate 6 08/29/25 17:20 08/29/25 17:25 08/29/25 17:30 Temperature Pulse Rate 70 72 71 Pulse Rate [Pulse Oximeter] Respiratory Rate 16 16 16 Blood Pressure 102/84 113/76 114/60 Blood Pressure [Right Arm] Pulse Oximetry 100 100 100 Oxygen Delivery Method Aerosol Mask Oxygen Flow Rate 6 08/29/25 17:35 08/29/25 17:40 08/29/25 17:50 Temperature 98.2 F Pulse Rate 70 70 Pulse Rate [Pulse Oximeter] Respiratory Rate 16 16 12 Blood Pressure 130/68 113/74 Blood Pressure [Right Arm] Pulse Oximetry 98 98 82 L Oxygen Delivery Method Room Air Room Air Room Air Oxygen Flow Rate 08/29/25 17:50 08/29/25 18:00 08/29/25 18:00 Temperature Pulse Rate Pulse Rate [Pulse Oximeter] 75 Respiratory Rate 12 12 12 Blood Pressure Blood Pressure [Right Arm] 107/89 Pulse Oximetry 82 L 95 Oxygen Delivery Method Room Air Nasal Cannula Oxygen Flow Rate 2 08/29/25 18:05 08/29/25 18:15 08/29/25 18:30 Temperature 98.4 F Pulse Rate Pulse Rate [Pulse Oximeter] 72 78 Respiratory Rate Blood Pressure Blood Pressure [Right Arm] 115/73 99/69 128/84 Pulse Oximetry 97 95 97 Oxygen Delivery Method Nasal Cannula Nasal Cannula Nasal Cannula Oxygen Flow Rate 3 2 2 08/29/25 18:45 08/29/25 19:15 08/29/25 19:50 Temperature 98.4 F 98.4 F Pulse Rate Pulse Rate [Pulse Oximeter] 80 101 H Respiratory Rate 14 14 14 Blood Pressure Blood Pressure [Right Arm] 135/90 H 140/88 H 158/86 H Pulse Oximetry 95 95 95 Oxygen Delivery Method Nasal Cannula Nasal Cannula Nasal Cannula Oxygen Flow Rate 1 1 1 08/29/25 21:45 08/29/25 22:24 08/29/25 22:46 Temperature 98.4 F 98.4 F 98.4 F Pulse Rate Pulse Rate [Pulse Oximeter] 96 96 96 Respiratory Rate 14 14 14 Blood Pressure Blood Pressure [Right Arm] 154/91 H 154/91 H 162/88 H Pulse Oximetry 95 95 95 Oxygen Delivery Method Nasal Cannula Nasal Cannula Nasal Cannula Oxygen Flow Rate 1 1 1 08/29/25 23:50 08/30/25 00:26 08/30/25 00:29 Temperature Pulse Rate Pulse Rate [Pulse Oximeter] 104 H 91 Respiratory Rate 16 16 Blood Pressure Blood Pressure [Right Arm] 162/112 H Pulse Oximetry 91 Oxygen Delivery Method Nasal Cannula Oxygen Flow Rate 1 08/30/25 00:29 08/30/25 03:01 08/30/25 07:00 Temperature 98.6 F 98.8 F Pulse Rate Pulse Rate [Pulse Oximeter] 108 H 102 H Respiratory Rate 16 18 18 Blood Pressure Blood Pressure [Right Arm] 142/90 H 147/89 H 125/82 Pulse Oximetry 91 91 95 Oxygen Delivery Method Nasal Cannula Nasal Cannula Nasal Cannula Oxygen Flow Rate 1 1 1 08/30/25 07:00 08/30/25 07:00 Temperature Pulse Rate Pulse Rate [Pulse Oximeter] 102 H Respiratory Rate 18 18 Blood Pressure Blood Pressure [Right Arm] Pulse Oximetry 95 Oxygen Delivery Method Nasal Cannula Oxygen Flow Rate 1 Assessment and Plan Assessment and plan (1) Closed fracture of neck of left femur: Problem details: POD 1 left hip bipolar hemiarthroplasty for displaced femoral neck fracture, and cerclage wire left proximal femur for calcar support - anterior approach Status: Acute (2) Rib fracture: Problem details: - incidentally noted right to rib fracture on imaging 08/28/25; asymptomatic - notes that she felt a pop in R chest when bending into the laundry basket a few weeks ago, exam reassuring - 08/29 not complaining of pain in chest. No hypoxia or tachypnea. Monitor. Status: Acute (3) GERD (gastroesophageal reflux disease): Problem details: - on PPI Status: Chronic (4) Anxiety: Problem details: - on Escitalopram Status: Chronic (5) Hypertension: Problem details: - has normal BP at home off of medication, daughter notes falls/lightheadedness when on Metoprolol - will HOLD Metoprolol on admission 08/28, follow BPs - 08/29 BP good control, continue to hold metoprolol Status: Chronic Plan - Complete 23 hour perioperative antibiotics. - PT/OT consult for education and assistance. - Social work consult for discharge planning - Prescribed analgesics as needed - DVT prophylaxis: Rivaroxaban for 5 days followed by 81 mg aspirin by mouth twice daily 25 days, walking, and SCDs - she states that there is still some discomfort to her mid to distal thigh anteriorly, but no knee pain on the left. - she and her have a good plan in place for postop/discharge, living in a rambler without steps. - Anticipation is for discharge to home with family/friends today [] if the patient remains medically stable, pain is controlled, and they are safe with mobilization.
[2025-08-30 10:44] VITALS: BP 100/76; PULSE 102; RESP 18; TEMP 36.4; O2SAT 96
--- NOTE | 2025-08-30 11:05 | P.DS_ITS ---
DS: Providers Provider Time Seen by Provider: 09:32 Date Seen: 08/30/25 Date of admission: 08/28/25 17:50 Primary care physician: Bertram Bush MD Admitting Clinician: Dalia Jacobs MD Consults: 08/28/25 18:21 Consult to Physical Therapy [CONS] Routine Comment: Reason(s) for PT Consult:: Evaluate and Treat Any Restrictions?:: No Restrictions Consult to Director Weights And Measures [CONS] Routine Comment: likely home with postop, just in case... Reason for Consult:: Discharge Planning Needs 08/28/25 18:22 Consult to Occupational Therapy [CONS] Routine Comment: Reason(s) for OT Consult:: Evaluate and Treat Any Restrictions?:: No Restrictions 08/29/25 18:10 Consult to Physical Therapy [CONS] Routine Comment: Reason(s) for PT Consult:: Evaluate and Treat Any Restrictions?:: Wt Bearing as Tolerated Attending Physician on discharge: Dina Luna MD Date of Discharge: 08/30/25 DS: Diagnosis Discharge Diagnosis (1) Closed fracture of neck of left femur: Status: Acute Problem details: POD 1 left hip bipolar hemiarthroplasty for displaced femoral neck fracture, and cerclage wire left proximal femur for calcar support - anterior approach VTE prophylaxis with 5 days of low dose rivaroxaban, then 4 weeks of bid low dose aspirin (2) Rib fracture: Status: Acute Problem details: - incidentally noted right to rib fracture on imaging 08/28/25; asymptomatic - notes that she felt a pop in R chest when bending into the laundry basket a few weeks ago, exam reassuring - 08/29 not complaining of pain in chest. No hypoxia or tachypnea. Monitor. - 08/30 doing well. No CP, no hypoxia (3) GERD (gastroesophageal reflux disease): Status: Chronic Problem details: - on PPI (4) Anxiety: Status: Chronic Problem details: - on Escitalopram (5) Hypertension: Status: Chronic Problem details: - has normal BP at home off of medication, daughter notes falls/lightheadedness when on Metoprolol - will HOLD Metoprolol on admission 08/28, follow BPs - 08/29 BP good control, continue to hold metoprolol - 08/30 hypertensive overnight, low/normal BP today. Patient hasn't taken metoprolol since summer due to lightheadedness and falls. F/u with PCP. DS: Summary Hospital Course Hospital Course: Per H&P: Asiya Ferguson is a 74 year old female who presented to the ER after a mechanical fall (tripped over dog leash/dog in daughter's garage) onto her L side. Had immediate pain in L hip after falling and was unable to bear weight. ER Course and Findings: - L femoral neck fracture - L knee without fracture or acute abnormalities - suspicion of R lateral 7th rib on CXR (notes she felt a pop over R chest wall while bending down into laundry basket a few weeks ago, no other injury, currently has no pain) - reassuring EKG and labs (mildly low sodium at 132) History of a mechanical fall and R femoral neck fracture in 06/2023; no anesthetic or complications at that time. She is not anticoagulated. Upon arrival to the floor, Asiya continued to have severe pain despite IV Hydromorphone. Anesthesia consulted and performed an anterior femoral nerve block bedside. Asiya did well perioperatively and had no complications. She is discharged home today in stable condition with the care of her family. Time Spent with Patient Time attestation: Total time spent providing and/or coordinating discharge services: Exam Narrative: Exam Narrative: General: No acute distress. Awake, alert, oriented. Sitting in bedside chair, appears comfortable. No pallor. No jaundice. Cardiovascular: Regular rate and rhythm. No murmurs, gallops, or rubs. Respiratory: Clear to auscultation bilaterally. No wheezes or crackles. Abdomen: Bowel sounds present. Soft, nondistended, nontender. Extremities: Left hip bandage is C/D/I. No LE edema. Const: Vital Signs, click to edit/add: Vital Signs - 24 hr 08/29/25 17:09 08/29/25 17:15 08/29/25 17:20 Temperature 97.7 F Pulse Rate 73 86 70 Pulse Rate [Pulse Oximeter] Respiratory Rate 17 16 16 Blood Pressure 107/66 115/78 102/84 Blood Pressure [Ri ght Arm] Pulse Oximetry 90 98 100 Oxygen Delivery Me thod Room Air Aerosol Mask Oxygen Flow Rate 6 08/29/25 17:25 08/29/25 17:30 08/29/25 17:35 Temperature Pulse Rate 72 71 70 Pulse Rate [Pulse Oximeter] Respiratory Rate 16 16 16 Blood Pressure 113/76 114/60 130/68 Blood Pressure [Ri ght Arm] Pulse Oximetry 100 100 98 Oxygen Delivery Me thod Aerosol Mask Room Air Oxygen Flow Rate 6 08/29/25 17:40 08/29/25 17:50 08/29/25 17:50 Temperature 98.2 F Pulse Rate 70 Pulse Rate [Pulse Oximeter] 75 Respiratory Rate 16 12 12 Blood Pressure 113/74 Blood Pressure [Ri ght Arm] 107/89 Pulse Oximetry 98 82 L 82 L Oxygen Delivery Me thod Room Air Room Air Room Air Oxygen Flow Rate 08/29/25 18:00 08/29/25 18:00 08/29/25 18:05 Temperature Pulse Rate Pulse Rate [Pulse Oximeter] 72 Respiratory Rate 12 12 Blood Pressure Blood Pressure [Ri ght Arm] 115/73 Pulse Oximetry 95 97 Oxygen Delivery Me thod Nasal Cannula Nasal Cannula Oxygen Flow Rate 2 3 08/29/25 18:15 08/29/25 18:30 08/29/25 18:45 Temperature 98.4 F Pulse Rate Pulse Rate [Pulse Oximeter] 78 80 Respiratory Rate 14 Blood Pressure Blood Pressure [Ri ght Arm] 99/69 128/84 135/90 H Pulse Oximetry 95 97 95 Oxygen Delivery Me thod Nasal Cannula Nasal Cannula Nasal Cannula Oxygen Flow Rate 2 2 1 08/29/25 19:15 08/29/25 19:50 08/29/25 21:45 Temperature 98.4 F 98.4 F 98.4 F Pulse Rate Pulse Rate [Pulse Oximeter] 101 H 96 Respiratory Rate 14 14 14 Blood Pressure Blood Pressure [Ri ght Arm] 140/88 H 158/86 H 154/91 H Pulse Oximetry 95 95 95 Oxygen Delivery Me thod Nasal Cannula Nasal Cannula Nasal Cannula Oxygen Flow Rate 1 1 1 08/29/25 22:24 08/29/25 22:46 08/29/25 23:50 Temperature 98.4 F 98.4 F Pulse Rate Pulse Rate [Pulse Oximeter] 96 96 104 H Respiratory Rate 14 14 Blood Pressure Blood Pressure [Ri ght Arm] 154/91 H 162/88 H 162/112 H Pulse Oximetry 95 95 Oxygen Delivery Me thod Nasal Cannula Nasal Cannula Oxygen Flow Rate 1 1 08/30/25 00:26 08/30/25 00:29 08/30/25 00:29 Temperature 98.6 F Pulse Rate Pulse Rate [Pulse Oximeter] 91 Respiratory Rate 16 16 16 Blood Pressure Blood Pressure [Ri ght Arm] 142/90 H Pulse Oximetry 91 91 Oxygen Delivery Me thod Nasal Cannula Nasal Cannula Oxygen Flow Rate 1 1 08/30/25 03:01 08/30/25 07:00 08/30/25 07:00 Temperature 98.8 F Pulse Rate Pulse Rate [Pulse Oximeter] 108 H 102 H 102 H Respiratory Rate 18 18 18 Blood Pressure Blood Pressure [Ri ght Arm] 147/89 H 125/82 Pulse Oximetry 91 95 Oxygen Delivery Me thod Nasal Cannula Nasal Cannula Oxygen Flow Rate 1 1 08/30/25 07:00 08/30/25 10:44 Temperature 97.6 F Pulse Rate Pulse Rate [Pulse Oximeter] 102 H Respiratory Rate 18 18 Blood Pressure Blood Pressure [Ri ght Arm] 100/76 Pulse Oximetry 95 96 Oxygen Delivery Me thod Nasal Cannula Room Air Oxygen Flow Rate 1 DS: Data Data Completed and Pending Completed studies during hospitalization: Procedures Replacement of Right Hip Joint, Femoral Surface with Synthetic Substitute, Cemented, Open Approach (06/27/23) 08/28/2025 EKG: Sinus rhythm with short NE, p.r. interval is 94 milliseconds, 70 beats per minute, nonspecific ST abnormality. Ordering Physician: Johnathon Isaacs M.D. Date of Service: 08/28/25 Procedure(s): XR chest 1V Accession Number(s): [id number] cc: Johnathon Isaacs M.D.; Bertram Bush M.D.~ For Patients: As a result of the Cures Act, medical imaging exams and procedure reports are released immediately into your electronic medical record. You may view this report before your referring provider. If you have questions, please contact your health care provider. INDICATION: Chest pain, fall over dog TECHNIQUE: Chest radiograph 1 view COMPARISON: 06/27/2023 FINDINGS: The sensitivity and specificity of the exam are moderately limited by the patient`s body habitus and the lordotic technique. Mediastinum: The mediastinum is normal in appearance. The heart silhouette is normal in size and morphology. Lung: Both lungs are unremarkable in appearance. No sign of pleural effusion seen. No pneumothorax is identified. Bone and Soft tissue: Fracture of the right lateral 7th rib is suspected. IMPRESSION: 1. Fracture of the right lateral 7th rib is suspected. Dictated by Guille Rutledge MD @ 08/28/2025 3:00:41 PM Dictated by: Guille Rutledge MD @ 08/28/2025 15:00:48 (Electronically Signed) Ordering Physician: Johnathon Isaacs M.D. Date of Service: 08/28/25 Procedure(s): XR hip LT min 2V Accession Number(s): [id number] cc: Johnathon Isaacs M.D.; Bertram Bush M.D.~ For Patients: As a result of the Cures Act, medical imaging exams and procedure reports are released immediately into your electronic medical record. You may view this report before your referring provider. If you have questions, please contact your health care provider. INDICATION: Fall, chest pain, left hip pain, injury, fall over dog TECHNIQUE: Pelvis radiograph, Hip radiograph 3 views left COMPARISON: None FINDINGS: Bone: There is a fracture in the left femoral neck with moderate varus angulation present. Moderate diffuse osteopenia is present. Joint: A right hip arthroplasty is noted without interval change. The visualized sacroiliac joints are unremarkable in appearance. The pubic symphysis is normal in appearance. Soft tissue: Unremarkable. No radiopaque foreign bodies are seen. IMPRESSION: 1. There is a fracture in the left femoral neck with moderate varus angulation present. Dictated by Guille Rutledge MD @ 08/28/2025 3:02:35 PM ADDENDUM Dictated by: MD @ 08/28/2025 15:03:18 (Electronically Signed) [place] [address] Diagnostic Imaging Report Patient: Asiya Ferguson MR#: [id number] : 1950 Acct:[id number] Loc: ED Service Date: 08/28/[address]: Ordering Physician: Johnathon Isaacs M.D. Date of Service: 08/28/25 Procedure(s): XR knee LT 2V Accession Number(s): [id number] cc: Johnathon Isaacs M.D.; Bertram Bush M.D.~ For Patients: As a result of the Cures Act, medical imaging exams and procedure reports are released immediately into your electronic medical record. You may view this report before your referring provider. If you have questions, please contact your health care provider. INDICATION: Fall, knee pain TECHNIQUE: Knee radiograph 2 views left COMPARISON: None FINDINGS: Bone: No acute fractures or aggressive bone lesions are identified. Moderate diffuse osteopenia is noted. Joint: The medial, lateral, and patellofemoral compartments are unremarkable. No significant knee effusion is seen. Soft tissue: Unremarkable. No radiopaque foreign bodies are seen. IMPRESSION: 1. No acute osseous injuries are noted. Dictated by: Guille Rutledge MD @ 08/28/2025 15:04:13 (Electronically Signed) Ordering Physician: Dalia Jacobs M.D. Date of Service: 08/29/25 Procedure(s): XR hip LT 1V Accession Number(s): [id number] cc: Dalia Jacobs M.D.; Bertram Bush M.D.~ For Patients: As a result of the s Act, medical imaging exams and procedure reports are released immediately into your electronic medical record. You may view this report before your referring provider. If you have questions, please contact your health care provider. Indication: Hip replacement surgery Technique: AP hip fluoroscopic image. Fluoroscopy time 15.2 seconds. Findings/Impression: Hardware from a left bipolar hip arthroplasty is in satisfactory position. Dictated by Gil Boles MD @ 08/30/2025 8:41:39 AM (Electronically Signed) Ordering Physician: Blayne Rodriguez M.D. Date of Service: 08/29/25 Procedure(s): XR hip LT post op Accession Number(s): [id number] cc: Blayne Rodriguez M.D.; Bertram Bush M.D.~ For Patients: As a result of the s Act, medical imaging exams and procedure reports are released immediately into your electronic medical record. You may view this report before your referring provider. If you have questions, please contact your health care provider. Indication: POST OP LEFT BIPOLAR HIP Technique: AP hip centered pelvis and lateral view left hip Findings/Impression: Hardware from a left bipolar hip arthroplasty is in satisfactory position. Bone alignment is normal. No sign of acute fracture. Postop changes are within normal limits. Dictated by Gil Boles MD @ 08/30/2025 8:43:47 AM (Electronically Signed) Discharge Plan Discharge Disposition: Home, Self-Care Date of Admission: 08/28/25 17:50 Attending Provider on Discharge: Dina Luna Consulting Providers: Blayne Rodriguez Primary Care Provider: Bertram Bush Condition: Improved Anticipated Discharge Date/Time: 08/30/25 12:05 Discharge Medications: New sennosides-docusate sodium [Senna-S] 8.6-50 mg tablet 1 - 4 tab-cap PO BID PRN (Reason: constipation) Qty: 60 0RF Rx Instructions: Hold medication if experiencing loose stools. aspirin 81 mg tablet,delayed release (DR/EC) 81 mg PO BID Qty: 50 0RF Rx Instructions: Medication to help prevent blood clots postoperatively; take TWICE daily. oxycodone 5 mg tablet 2.5 - 5 mg PO Q4-6H MDD 6 PRN (Reason: pain) Qty: 42 0RF Rx Instructions: Take as needed for postop pain: 2.5mg mild pain, 5mg moderate-severe pain; wean as tolerated. rivaroxaban 10 mg tablet 10 mg PO DAILY Qty: 4 0RF Rx Instructions: Medication for deep vein clot prevention post surgery. Complete this medication before starting Aspirin. Continued escitalopram oxalate 20 mg tablet 20 mg PO DAILY Qty: 90 3RF acetaminophen 500 mg capsule 500 - 1,000 mg PO Q6H MDD 4000mg per day PRN (Reason: pain) Qty: 100 0RF omeprazole 20 mg capsule,delayed release(DR/EC) 20 mg PO DAILY Held metoprolol succinate 25 mg tablet extended release 24 hr 25 mg PO DAILY Qty: 90 3RF Hold Instructions: Resume on 09/06/25. Discuss with PCP Discharge Orders: Discharge Order (Routine); Ordered 08/30/25 Ordered By: Juan Jose Perez Consulting provider completed their portion of the discharge: Yes Patient Education: Aspirin (By mouth), Oxycodone, Rapid Release (By mouth), Rivaroxaban (By mouth) (Xarelto, Xarelto Starter Pack), Senna (By mouth), ORIF of Hip Fracture (DC) Activity Level: Activity as Tolerated, Weight Bearing as Tolerated, Use Cane and Use Walker Activity Detail: Wound: ? Do not remove original dressing; we will remove this at first postop visit. Only remove dressing if integrity is in question. ? No immersing wound in water; showering okay; light scrub with your hand and body soap, rinse, dab dry ? Sutures are under the skin, will dissolve; allow surgical glue to come off naturally; do not scrub the wound or apply ointments/lotions ? Call our office with any redness that streaks, excessive drainage from the wound, or wound gapping. Ice/Elevate: ? Ice as needed for swelling and discomfort; elevate extremity frequently above the heart. Motion/Exercise: ? Weight bear as tolerated operative extremity (walker/cane for ambulation assistance as needed) ? Per PT/OT. ? Straight leg raises daily: 1-2 sets of 10 reps Pain Medications: ? Oral narcotic as prescribed. Wean as tolerated. Additional acetaminophen and ibuprofen as needed. Blood Clot Prevention (DVT): ? Medication: 5 days of xarelto, followed by 25 days 81 mg aspirin by mouth twice daily (1 month total treatment) Driving: ? Do not drive while taking narcotic pain medication ? Anticipate 4-6 weeks no driving if operative leg is driving leg Dental: ? No elective dental work for 3 months post-op. If there is an urgent/emergent dental need, contact our office for an antibiotic prescription. Smoking/Alcohol: ? Do not smoke; do no drink alcohol especially when taking postoperative oral narcotic medication Seek Care from you Primary Care Provider if you experience the following issues in the postoperative phase and beyond: ? Bacterial infections such as: pneumonia, bacterial skin infection (cellulitis), UTI, high fever, chills unrelated to the operative body part - call your primary care physician urgently for treatment in hopes to protect your health and the metal implant. Referrals: ? PT, OT per patient preference - evaluate & treat total hip arthroplasty protocol, anterior approach (gait training, ROM, ADLs) Follow-up: - 10-14 days with JANN for 1st postop visit, then [address] Rodriguez. Vaccines: ? No vaccines until 4-6 weeks postop If there are any acute concerns regarding your surgery, please call our orthopedic clinic ([phone]) Discharge Diet: Regular Follow Up Appointments: Bertram Bush MD [Primary Care Provider, Family Practice] Referral Note: 1 week Juan Jose Perez PA-C [Physician Offender Job Retention Specialist, Orthopedics] - 09/13/25 1:30 pm Referral Note: [facility] for hospital follow-up. Forms: [employer] Info Instructions
[2025-08-30] MEDS: SODIUM CHLORIDE 0.9 % (FLUSH) 10 ML SYRINGE 5 ML IVF (11:56)
[2025-08-30] MEDS: SENNOSIDES 1 TAB TABLET 2 TAB PO (12:00)
--- NOTE | 2025-08-30 12:11 | PC.SOCIAL ---
Discharge planning: SW met with patient to determine if there were any needs/supports patient has when she discharges home. Patient states that she has everything that she would need and expressed no concerns. SW to assist if needs/concerns arise.
== END 2025-08-30 13:00 | disposition home or self-care (01) | DRG 522 ==
LOC: ED 15:33 → MEDSURG 16:22
PROVIDERS: Orthopaedic Surgery Sports Medicine; Admitting Provider Family Medicine; Emergency Provider Emergency Medicine; PCP Family Medicine; Visit Provider Family Medicine
PROC: 0SRS0JA Replacement of Left Hip Joint, Femoral Surface with Synthetic Substitute, Uncemented, Open Approach (ICD-10-PCS; principal; 2025-08-29 13:00)
DX: S72.002A Fracture of unspecified part of neck of left femur, initial encounter for closed fracture (principal); S22.31XA Fracture of one rib, right side, initial encounter for closed fracture; G89.18 Other acute postprocedural pain; R00.0 Tachycardia, unspecified; W54.1XXA Struck by dog, initial encounter; W01.0XXA Fall on same level from slipping, tripping and stumbling without subsequent striking against object, initial encounter; Y92.009 Unspecified place in unspecified non-institutional (private) residence as the place of occurrence of the external cause; F41.9 Anxiety disorder, unspecified; I10 Essential (primary) hypertension; K21.9 Gastro-esophageal reflux disease without esophagitis; G25.81 Restless legs syndrome
CPT/HCPCS: 01214; 36415; 64447; 71045; 73501; 73502; 73560; 76000; 76942; 80048; 85025; 93005; 94761; 97110; 97116; 97161; 97165; 97535; 99100; 99283; 99285; A9270; C1776; J0665; J0690; J1100; J1171; J2250; J2405; J2704; J2795; J3010; J3490; J7120

== ENCOUNTER 2025-09-13 15:32 | Outpatient (CLI) | payer MEDICARE, SELFPAY ==
--- NOTE | 2025-09-13 16:45 | CRLHL7_ITS ---
For Patients: As a result of the Century Cures Act, medical imaging exams and procedure reports are released immediately into your electronic medical record. You may view this report before your referring provider. If you have questions, please contact your health care provider. INDICATION: Leg pain and swelling. TECHNIQUE: Ultrasound venous duplex lower left extremity. Compression venous exam was performed using gooden-scale, color Doppler, and spectral Doppler analysis. COMPARISON: None. FINDINGS: Deep veins: Acute, occlusive thrombus involving left lower extremity extending from common femoral vein to the distal calf vein including posterior tibial and peroneal veins. Occlusive thrombus is present within the common femoral vein, superficial femoral vein, popliteal vein, posterior tibial veins and peroneal veins. Partially occlusive thrombus is identified within the deep femoral vein. Contralateral right common femoral vein is patent and compressible. Superficial veins: Thrombosis is also present within the great saphenous vein at the junction to the common femoral vein the and into the proximal thigh. Distal thigh great saphenous vein is compressible. Large septated/multi septated cystic lesion in the scanned abdomen and pelvis, of uncertain etiology. It could be related to large volume of ascites versus multi-septated cystic mass versus overdistended urinary bladder. Further assessment with CT abdomen and pelvis with contrast would be of help. IMPRESSION: 1. Acute occlusive thrombosis of entire left lower extremity veins extending from common femoral vein to the calf veins. 2. Superficial thrombosis of the great saphenous vein at GSV/common femoral vein junction and into the proximal thigh. 3. Large septated/multi septated cystic lesion in the scanned abdomen and pelvis, of uncertain etiology. It could be related to large volume of ascites versus multi-septated cystic mass versus overdistended urinary bladder. Further assessment with CT abdomen and pelvis with contrast would be of help. Findings were communicated to Dr. Chris arora at 5:50 p.m. on 09/13/2025. Dictated by Spencer Sanderson MD @ 09/13/2025 5:50:51 PM (Electronically Signed)
== END 2025-09-13 15:33 | disposition home or self-care (01) ==
PROVIDERS: PCP Family Medicine; Visit Provider Physician Assistant Surgical
DX: M79.605 Pain in left leg (principal); I82.412 Acute embolism and thrombosis of left femoral vein; I82.812 Embolism and thrombosis of superficial veins of left lower extremity; R22.42 Localized swelling, mass and lump, left lower limb; Z96.642 Presence of left artificial hip joint
CPT/HCPCS: 93971

== ENCOUNTER 2025-09-13 17:20 | Emergency (ER) | payer MEDICARE, SELFPAY ==
--- NOTE | 2025-09-13 17:25 | CRLHL7_ITS ---
For Patients: As a result of the Century Cures Act, medical imaging exams and procedure reports are released immediately into your electronic medical record. You may view this report before your referring provider. If you have questions, please contact your health care provider. INDICATION: FLUID COLLECTION SEEN DVT ON US TECHNIQUE: CT abdomen and pelvis acquired with 99 cc Isovue 370 IV contrast. COMPARISON: Chest CT October 2022. FINDINGS: Lower chest: 3 millimeter right lower lobe indeterminate pulmonary nodule. Stable from 2021, statistically benign. ABDOMEN: Liver: Normal enhancement. Subcentimeter hypodensity abutting the capsular portion of segment 6. Too small to characterize. Gallbladder and biliary: Normal gallbladder without radiopaque stone. Normal caliber bile ducts. Spleen: Normal size and enhancement. Pancreas: Normal enhancement without peripancreatic inflammatory changes or ductal dilatation. Adrenal glands: Right adrenal nodule measuring not quite simple attenuation and 17 millimeters, unchanged from October 2022 exam where this measured simple cystic attenuation, statistically an adenoma. Kidneys and ureters: Normal enhancement. No radio-opaque calculi. No hydroureteronephrosis. GI tract: Tiny hiatal hernia. Normal caliber small and large bowel loops. Normal appendix. Colonic diverticula without diverticulitis. Vascular structures: Normal caliber aorta with atherosclerotic calcifications. Filling defect within the left SFV and DFV extending proximally towards the confluence with the right and left common iliac veins. No thrombus definitively seen within the IVC. Lymph nodes: No lymphadenopathy in the abdomen or pelvis by size criteria. Peritoneum: No intraperitoneal free fluid. PELVIS: Genitourinary system: Normal urinary bladder. Massive masslike cystic lesion measuring up to 26.2 cm occupies the extraperitoneal space causing mass effect on the peritoneal space pushing up bowel and organs superiorly. This is not quite simple attenuation. No mural nodularity. No stranding. Age-appropriate uterus. Right adnexum cystic lesion measuring 5.8 cm. SKELETAL STRUCTURES AND SOFT TISSUES: Bilateral hip arthroplasties. Left hip joint effusion. Stranding/subcutaneous edema in the left lower extremity may be secondary to vascular congestion from DVT. Old right-sided rib fractures. Multilevel spondylosis. IMPRESSION: 1. Massive masslike cystic lesion measuring up to 26.2 cm occupies the extraperitoneal space causing mass effect on the peritoneal space pushing up bowel and organs superiorly. This is not quite simple attenuation. No mural nodularity. No stranding. Leading differential considerations include cystic neoplasm potentially from ovaries. Recommend further evaluation with dedicated gynecologic consultation. 2. Lesion causes mass effect upon the peritoneal organs and vasculature. This causes DVT extending from the left SFV and DFV centrally towards the confluence of the left common and right common iliac veins to form the IVC. Consider dedicated CT PE study to assess for pulmonary embolus. 3. Additional right adnexal cystic lesion measuring 5.8 cm. Incompletely characterized on this exam. Please note that all CT scans at this facility use dose modulation, iterative reconstruction, and/or weight-based dosing when appropriate to reduce radiation dose to as low as reasonably achievable. Dictated by Gil Tovar MD @ 09/13/2025 6:28:52 PM (Electronically Signed)
[2025-09-13 17:32] VITALS: BP 126/59; PULSE 93; RESP 18; TEMP 36.9; O2SAT 99
--- NOTE | 2025-09-13 17:56 | ED_ITS ---
HPI - General Adult General Date Seen: 09/13/25 <Francie Stockton MD - Last Filed: 09/15/25 08:30> Chief complaint: Extremity Pain/Injury, Lower <Francie Stockton MD - Last Filed: 09/15/25 08:30> Stated complaint: L leg blood clot <Francie Stockton MD - Last Filed: 09/15/25 08:30> Time Seen by Provider: 09/13/25 17:41 <Francie Stockton MD - Last Filed: 09/15/25 08:30> History of Present Illness HPI narrative: Patient is a 75-year-old woman who underwent left hip replacement on 08/29/2025. She had developed swelling in her left leg and was sent for a venous ultrasound of her left leg today. She tells me that she does not have a prior diagnosis of DVT or PE, she is not anticoagulated. She says she was supposed to take aspirin but admits that she is actually kind of for gotten to take that regularly. She has been doing reasonably well otherwise in terms of her leg, she just had noted significant swelling. While at ultrasound, they noted a large fluid collection in the abdomen, and that was really the reason for referral to the ER. She denies any abdominal symptoms at all. She does note for the past week she has not had much of an appetite but she relates that to pain related to her surgery. She denies any abdominal pain, she has not had any nausea or vomiting, she says that aside from this past week she has been eating and drinking fine, does not feel she has had any abdominal distension or increased girth. <Francie Stockton MD - Last Filed: 09/15/25 08:30> Related Data Home medications: Home Medications ?Medication ?Instructions ?Recorded ?Confirmed omeprazole 20 mg capsule,delayed 20 mg PO DAILY 09/13/25 release Previous Rx's ?Medication ?Instructions ?Recorded acetaminophen 500 mg capsule 500 - 1,000 mg (1 - 2 x 5 00 mg) PO 06/28/23 Q6H PRN pain #100 caps escitalopram oxalate 20 mg tablet 20 mg PO DAILY #90 t abs 08/19/25 metoprolol succinate 25 mg 25 mg PO DAILY #90 tabs tablet,extended release 24 hr Held on 08/30/25. Instructions: Resume on 09/06/25. Discuss with PCP aspirin 81 mg tablet,delayed 81 mg PO BID #50 tabs release sennosides 8.6 mg-docusate sodium 1 - 4 tab-cap (1 - 4 x 8.6-50 mg) 08/29/25 50 mg tablet (Senna-S) PO BID PRN constipation #60 tabs oxycodone 5 mg tablet 2.5 - 5 mg (0.5 - 1 x 5 mg) PO 09/13/25 Q4-6H PRN pain #15 tabs <Francei Stockton MD - Last Filed: 09/15/25 08:30> Allergies/adverse reactions: Allergies Allergy/AdvReac Type Severity Reaction Status Date / Time nitrofurantoin Allergy Unknown N/V Verified 09/13/25 17:38 Sulfa (Sulfonamide Allergy Unknown GI upset Verified 09/13/25 17:38 Antibiotics) <Francie Stockton MD - Last Filed: 09/15/25 08:30> Review of Systems Status of ROS: Reports: 10 or more systems reviewed and unremarkable except as noted in History and below <Francie Stockton MD - Last Filed: 09/15/25 08:30> [facility] Medical History: Medical History Family history of ovarian cancer ?Z80.41 - Family history of malignant neoplasm of ovary (ICD-10) Bunion ?M21.619 - Bunion of unspecified foot (ICD-10) Primary osteoarthritis, left shoulder ?M19.012 - Primary osteoarthritis, left shoulder (ICD-10) Disorder of left rotator cuff ?M67.912 - Unspecified disorder of synovium and tendon, left shoulder (ICD- 10) GERD (gastroesophageal reflux disease) ?K21.9 - Gastro-esophageal reflux disease without esophagitis (ICD-10) PAC (premature atrial contraction) ?I49.1 - Atrial premature depolarization (ICD-10) Restless leg ?G25.81 - Restless legs syndrome (ICD-10) Anxiety ?F41.9 - Anxiety disorder, unspecified (ICD-10) Mild depression ?F32.A - Depression, unspecified (ICD-10) Tongue lesion ?K14.8 - Other diseases of tongue (ICD-10) Back pain ?M54.9 - Dorsalgia, unspecified (ICD-10) Fracture of left clavicle ?S42.002A - Fracture of unspecified part of left clavicle, initial encounter for closed fracture (ICD-10) <Francie Stockton MD - Last Filed: 09/15/25 08:30> Surgical History: Surgical History History of hemiarthroplasty of left hip (08/29/25) ?Z96.642 - Presence of left artificial hip joint (ICD-10) Status post open reduction and internal fixation (ORIF) of fracture ?Z98.890 - Other specified postprocedural states (ICD-10) ?Z87.81 - Personal history of (healed) traumatic fracture (ICD-10) Status post tubal ligation ?Z98.51 - Tubal ligation status (ICD-10) <Francie Stockton MD - Last Filed: 09/15/25 08:30> Family History: Family History Other Ovarian cancer <Francie Stockton MD - Last Filed: 09/15/25 08:30> Social History: Social History Narrative: Retired, lives independently with Taj (MDM if needed). Nonsmoker, no concerning ETOH use. Full Code, no desire to be on life support retirement. What is your current living situation?: I presently have a place to live Problems where you live: no known problems Problems where you live details: n/a In the past 12 months, utilities in danger of being shut off: no In past 12 months, lack of transportation kept you from medical appts, meetings, work, or getting things needed for daily living: no In the past 12 mos, have been you worried that your food would run out before you had money to buy more?: never true In the past 12 mos, the food you bought just didn't last and you didn't have money to buy more?: never true Smoking Status: Never smoker Do you use any of these nicotine containing products: None How often do you have a drink containing alcohol: never How often do you have six or more drinks on one occasion: Never AUDIT-C Alcohol total score: 0 Non-prescribed substance use: denies use Caffeine: No How often does anyone, including family, friends and others, physically hurt you : never How often does anyone, including family, friends and others, insult or talk down to you: never How often does anyone, including family, friends and others, threaten you with harm: never How often does anyone, including family, friends and others, scream or curse at you: never service: No <Francie Stockton MD - Last Filed: 09/15/25 08:30> Exam Narrative: Exam Narrative: Vital signs reviewed In general, an alert, nontoxic elderly woman, she looks comfortable, breathing easily. Head: Normocephalic, atraumatic. Eyes: Sclera clear. Pupils equal and reactive. ENT: Mucous membranes moist. Neck: Supple without adenopathy. Heart: Regular rate and rhythm without murmur. Lungs: Clear. No increased work of breathing, crackles or wheezes. Abdomen: Abdomen is protuberant, soft, entirely nontender. I do not feel a palpable mass. Extremities: The left lower extremity is markedly edematous up to the hip. There is no erythema, does not seem to be tender to palpation. Neurologic: Alert, conversant. Speech fluent, face symmetric. Moves all extremities equally. Skin: Warm, dry well perfused. Affect: Normal. <Francie Stockton MD - Last Filed: 09/15/25 08:30> Const: Vital Signs, click to edit/add: Vital Signs - 24 hr 09/13/25 17:32 09/13/25 18:47 09/13/25 22:10 Temperature 98.5 F 97.9 F Pulse Rate 93 Pulse Rate [Right Pulse Oximeter] 93 99 Respiratory Rate 18 18 Blood Pressure [Ri ght Forearm] 126/59 L 113/60 Pulse Oximetry 99 96 96 Oxygen Delivery Me thod Room Air Room Air <Francie Stockton MD - Last Filed: 09/15/25 08:30> Vital Signs, click to edit/add: Vital Signs - 24 hr 09/13/25 17:32 09/13/25 18:47 09/13/25 22:10 Temperature 98.5 F 97.9 F Pulse Rate 93 Pulse Rate [Right Pulse Oximeter] 93 99 Respiratory Rate 18 18 Blood Pressure [Ri ght Forearm] 126/59 L 113/60 Pulse Oximetry 99 96 96 Oxygen Delivery Me thod Room Air Room Air <Cher Yates MD - Last Filed: 09/13/25 23:53> Course Course ED Course: I reviewed the radiology read for her left lower extremity Doppler. She has thrombus in the entire left lower extremity veins from the common femoral to the calf veins as well some superficial thrombosis of the greater saphenous vein. This will need to be managed with anticoagulation. However, they note this large septated cystic lesion, cystic mass versus ascites versus over distended urinary bladder. In the absence of any other findings of liver disease, ascites seems less likely, and she does not provide history of urinary retention. CT of the abdomen is ordered along with basic labs. Labs are reviewed and unremarkable thus far, BNP troponin still pending. She is anemic with a hemoglobin of 8.6 which is down a few g but she did have a recent hip fracture and surgery. I reviewed her abdominal CT scan, she has this large cystic lesion which occupies her entire abdominal cavity. Appears to arise from the ovary. Radiology report is reviewed, they note a large masslike cystic lesion 26 cm with mass effect on the peritoneal space. They note this is not quite simple attenuation and leading differential includes a cystic neoplasm potentially from ovaries. They also note that the DVT in the left femoral veins extends centrally toward the confluence of the left common and right common iliac veins to form the IVC. There is also a right adnexal cystic lesion measuring almost 6 cm which is incompletely characterized. Discussed all this with the patient and her family. We did go on to do a CT scan of the chest, confirm with her she does not have any pulmonary symptoms, she does say that she had some rib pain a few weeks ago prior to her surgery but that seems to feel better. CT scan shows PE by my review in the left lower lung, this is read as lobar segmental and subsegmental by the radiologist without evidence of heart strain. Case discussed briefly with Dr. Atkins here. I think patient needs to be admitted for heparin given the extensive clot in her lower extremity and pelvis, and would benefit from going on consultation. Dr. Atkins agrees that transfer to accomplish both of these at the same time would be appropriate, discussed with the hospitalist at [facility] who accepts for transfer. There is an up to 8 hour bed delay. I have updated the family on all of this and they are comfortable with the plan. Pain medication as needed he here for her hip. Heparin was started per protocol. Patient is signed out to Dr. Yates at the end of my shift pending transfer to [facility]. <Francie Stockton MD - Last Filed: 09/15/25 08:30> Reevaluation(s) Reevaluation #1: update: Dr. Yates: Patient transferred without complication, no further interventions needed on my shift <Cher Yates MD - Last Filed: 09/13/25 23:53> Vital Signs Vital signs: Initial Vital Signs Temperature 98.5 F 09/13/25 17:32 Temperature Source Temporal Artery Scan 09/13/25 17:32 Pulse Rate 93 09/13/25 17:32 Pulse Rhythm Regular 09/13/25 17:32 Pulse Strength 3+ Normal 09/13/25 17:32 Respiratory Rate 18 09/13/25 17:32 Blood Pressure 126/59 L 09/13/25 17:32 Blood Pressure Mean 81 09/13/25 17:32 Blood Pressure Position Sitting 09/13/25 17:32 Pulse Oximetry 99 09/13/25 17:32 Oxygen Delivery Method Room Air 09/13/25 17:32 Vital Signs Temperature 98.5 F 09/13/25 17:32 Pulse Rate 93 09/13/25 17:32 Respiratory Rate 18 09/13/25 17:32 Blood Pressure 126/59 L 09/13/25 17:32 Pulse Oximetry 99 09/13/25 17:32 Oxygen Delivery Method Room Air 09/13/25 17:32 Temperature 97.9 F 09/13/25 22:10 Pulse Rate 99 09/13/25 22:10 Respiratory Rate 18 09/13/25 22:10 Blood Pressure 113/60 09/13/25 22:10 Pulse Oximetry 96 09/13/25 22:10 Oxygen Delivery Method Room Air 09/13/25 22:10 <Francie Stockton MD - Last Filed: 09/15/25 08:30> Initial Vital Signs Temperature 98.5 F 09/13/25 17:32 Temperature Source Temporal Artery Scan 09/13/25 17:32 Pulse Rate 93 09/13/25 17:32 Pulse Rhythm Regular 09/13/25 17:32 Pulse Strength 3+ Normal 09/13/25 17:32 Respiratory Rate 18 09/13/25 17:32 Blood Pressure 126/59 L 09/13/25 17:32 Blood Pressure Mean 81 09/13/25 17:32 Blood Pressure Position Sitting 09/13/25 17:32 Pulse Oximetry 99 09/13/25 17:32 Oxygen Delivery Method Room Air 09/13/25 17:32 Vital Signs Temperature 98.5 F 09/13/25 17:32 Pulse Rate 93 09/13/25 17:32 Respiratory Rate 18 09/13/25 17:32 Blood Pressure 126/59 L 09/13/25 17:32 Pulse Oximetry 99 09/13/25 17:32 Oxygen Delivery Method Room Air 09/13/25 17:32 Temperature 97.9 F 09/13/25 22:10 Pulse Rate 99 09/13/25 22:10 Respiratory Rate 18 09/13/25 22:10 Blood Pressure 113/60 09/13/25 22:10 Pulse Oximetry 96 09/13/25 22:10 Oxygen Delivery Method Room Air 09/13/25 22:10 <Cher Yates MD - Last Filed: 09/13/25 23:53> Medications Administered Medications: Discontinued Medications Generic Name Dose Route Start Last Admin Trade Name Freq PRN Reason Stop Dose Admin Heparin Sodium (Porcine) 6,300 unit 09/13/25 18:59 09/13/25 19:32 Heparin 5,000 Unit/0.5 Ml Inj 80 unit/kg (6300 unit) 09/13/25 19:00 6,300 unit IVP Administration ONCE ONE Hydromorphone HCl 0.5 mg 09/13/25 18:21 09/13/25 18:39 Hydromorphone 0.5 Mg/0.5 Ml Inj IVP 09/13/25 18:22 0.5 mg ONCE ONE Administration Hydromorphone HCl 0.5 mg 09/13/25 20:04 09/13/25 22:20 Hydromorphone 0.5 Mg/0.5 Ml Inj IVP 0.5 mg Q1H PRN Administration Heparin Sodium/Dextrose 25,000 unit in 500 mls @ 0 mls/hr 09/13/25 19:00 09/13/25 19:37 Heparin IV 1,400 unit/hr .Q0M DARWIN 28 mls/hr Protocol Administration Per Protocol <Francie Stockton MD - Last Filed: 09/15/25 08:30> Discontinued Medications Generic Name Dose Route Start Last Admin Trade Name Freq PRN Reason Stop Dose Admin Heparin Sodium (Porcine) 6,300 unit 09/13/25 18:59 09/13/25 19:32 Heparin 5,000 Unit/0.5 Ml Inj 80 unit/kg (6300 unit) 09/13/25 19:00 6,300 unit IVP Administration ONCE ONE Hydromorphone HCl 0.5 mg 09/13/25 18:21 09/13/25 18:39 Hydromorphone 0.5 Mg/0.5 Ml Inj IVP 09/13/25 18:22 0.5 mg ONCE ONE Administration Hydromorphone HCl 0.5 mg 09/13/25 20:04 09/13/25 22:20 Hydromorphone 0.5 Mg/0.5 Ml Inj IVP 0.5 mg Q1H PRN Administration Heparin Sodium/Dextrose 25,000 unit in 500 mls @ 0 mls/hr 09/13/25 19:00 09/13/25 19:37 Heparin IV 1,400 unit/hr .Q0M DARWIN 28 mls/hr Protocol Administration Per Protocol <Cher Yates MD - Last Filed: 09/13/25 23:53> Medical Decision Making Lab Data Lab results reviewed: Yes I reviewed the patient's lab results <Francie Stockton MD - Last Filed: 09/15/25 08:30> Labs: Lab Results 09/13/25 Range/Units 17:45 WBC 8.66 (4.50-11.00) K/uL RBC 2.86 L (4.00-5.20) m/uL Hgb 8.6 L (12.0-16.0) gm/dL Hct 27.4 L (33.0-51.0) % MCV 96 (80-100) fL MCH 30 (26-34) pg MCHC 31 L (32-36) gm/dL RDW Coeff of Mary 11.9 (11.5-15.5) % Plt Count 411 (140-440) K/uL Neut % (Auto) 69.2 (42.0-72.0) % Lymph % (Auto) 16.1 L (20-44) % Faulk % (Auto) 11.1 H (0.0-11.0) % Eos % (Auto) 2.4 (0.0-7.0) % Baso % (Auto) 0.6 (0.0-3.0) % Neut # (Auto) 6.00 (1.7-7.0) K/uL Lymph # (Auto) 1.40 (0.90-2.90) K/uL Faulk # (Auto) 1.00 H (0.00-0.90) K/UL Eos # (Auto) 0.21 (0.00-0.50) K/uL Baso # (Auto) 0.05 (0.00-0.30) K/uL Abs Immat Gran (auto) 0.05 (0.00-0.30) K/uL Imm/Tot Granulo (auto) 0.6 % INR 1.21 H (0.91-1.10) APTT 30 (23-33) Seconds Sodium 133 L (135-149) mmol/L Potassium 3.7 (3.6-5.1) mmol/L Chloride 97 (96-114) mmol/L Carbon Dioxide 26 (20-32) mmol/L Anion Gap 10 (7-15) mEq/L BUN 21 (7-30) mg/dL Creatinine 0.7 (0.5-1.5) mg/dL Estimated GFR 90 ml/min Glucose 123 H (60-115) mg/dL Calcium 8.8 (8.4-10.6) mg/dL Total Bilirubin 0.6 (0.1-1.5) mg/dL Direct Bilirubin 0.3 (0.0-0.5) mg/dL AST 66 H (12-35) U/L ALT 46 H (4-35) U/L Alkaline Phosphatase 89 (40-150) U/L Troponin I < 0.01 (0.01-0.04) ng/mL NT-Pro-B Natriuret Pep 316 H (See Note) pg/mL Total Protein 6.6 (6.0-8.3) g/dL Albumin 3.4 (3.3-5.0) g/dL <Francie Stockton MD - Last Filed: 09/15/25 08:30> Lab Results 09/13/25 Range/Units 17:45 WBC 8.66 (4.50-11.00) K/uL RBC 2.86 L (4.00-5.20) m/uL Hgb 8.6 L (12.0-16.0) gm/dL Hct 27.4 L (33.0-51.0) % MCV 96 (80-100) fL MCH 30 (26-34) pg MCHC 31 L (32-36) gm/dL RDW Coeff of Mary 11.9 (11.5-15.5) % Plt Count 411 (140-440) K/uL Neut % (Auto) 69.2 (42.0-72.0) % Lymph % (Auto) 16.1 L (20-44) % Faulk % (Auto) 11.1 H (0.0-11.0) % Eos % (Auto) 2.4 (0.0-7.0) % Baso % (Auto) 0.6 (0.0-3.0) % Neut # (Auto) 6.00 (1.7-7.0) K/uL Lymph # (Auto) 1.40 (0.90-2.90) K/uL Faulk # (Auto) 1.00 H (0.00-0.90) K/UL Eos # (Auto) 0.21 (0.00-0.50) K/uL Baso # (Auto) 0.05 (0.00-0.30) K/uL Abs Immat Gran (auto) 0.05 (0.00-0.30) K/uL Imm/Tot Granulo (auto) 0.6 % INR 1.21 H (0.91-1.10) APTT 30 (23-33) Seconds Sodium 133 L (135-149) mmol/L Potassium 3.7 (3.6-5.1) mmol/L Chloride 97 (96-114) mmol/L Carbon Dioxide 26 (20-32) mmol/L Anion Gap 10 (7-15) mEq/L BUN 21 (7-30) mg/dL Creatinine 0.7 (0.5-1.5) mg/dL Estimated GFR 90 ml/min Glucose 123 H (60-115) mg/dL Calcium 8.8 (8.4-10.6) mg/dL Total Bilirubin 0.6 (0.1-1.5) mg/dL Direct Bilirubin 0.3 (0.0-0.5) mg/dL AST 66 H (12-35) U/L ALT 46 H (4-35) U/L Alkaline Phosphatase 89 (40-150) U/L Troponin I < 0.01 (0.01-0.04) ng/mL NT-Pro-B Natriuret Pep 316 H (See Note) pg/mL Total Protein 6.6 (6.0-8.3) g/dL Albumin 3.4 (3.3-5.0) g/dL <Cher Yates MD - Last Filed: 09/13/25 23:53> Imaging Data Venous US: Attestation: I have reviewed the pertinent imaging results. <Francie Stockton MD - Last Filed: 09/15/25 08:30> Radiologist's impression: Patient: MORALES PERDOMO Facility: [facility] Site . Site : 1950 Study: US-Extremity Left LEV-09/13/2025 5:30:44 PM Ordering Physician: Chris Arora Final Report: INDICATION: Leg pain and swelling. TECHNIQUE: Ultrasound venous duplex lower left extremity. Compression venous exam was performed using gooden-scale, color Doppler, and spectral Doppler analysis. COMPARISON: None. FINDINGS: Deep veins: Acute, occlusive thrombus involving left lower extremity extending from common femoral vein to the distal calf vein including posterior tibial and peroneal veins. Occlusive thrombus is present within the common femoral vein, superficial femoral vein, popliteal vein, posterior tibial veins and peroneal veins. Partially occlusive thrombus is identified within the deep femoral vein. Contralateral right common femoral vein is patent and compressible. Superficial veins: Thrombosis is also present within the great saphenous vein at the junction to the common femoral vein the and into the proximal thigh. Distal thigh great saphenous vein is compressible. Large septated/multi septated cystic lesion in the scanned abdomen and pelvis, of uncertain etiology. It could be related to large volume of ascites versus multi-septated cystic mass versus overdistended urinary bladder. Further assessment with CT abdomen and pelvis with contrast would be of help. IMPRESSION: 1. Acute occlusive thrombosis of entire left lower extremity veins extending from common femoral vein to the calf veins. 2. Superficial thrombosis of the great saphenous vein at GSV/common femoral vein junction and into the proximal thigh. 3. Large septated/multi septated cystic lesion in the scanned abdomen and pelvis, of uncertain etiology. It could be related to large volume of ascites versus multi-septated cystic mass versus overdistended urinary bladder. Further assessment with CT abdomen and pelvis with contrast would be of help. Findings were communicated to Dr. Chris arora at 5:50 p.m. on 09/13/2025. Dictated by Spencer Sanderson MD @ 09/13/2025 5:50:51 PM <Francie Stockton MD - Last Filed: 09/15/25 08:30> CT scan - abdomen: Attestation: I have reviewed the pertinent imaging results. <Francie Stockton MD - Last Filed: 09/15/25 08:30> Radiologist's impression: Patient: Morales Perdomo MR#: [id number] : 1950 Acct:[id number] Loc: ED Service Date: 09/13/[address]: Ordering Physician: Francie Stockton M.D. Date of Service: 09/13/25 Procedure(s): CT abdomen pelvis w con Accession Number(s): [id number] cc: Francie Stockton M.D.; Bertram Bush M.D.~ For Patients: As a result of the Century Cures Act, medical imaging exams and procedure reports are released immediately into your electronic medical record. You may view this report before your referring provider. If you have questions, please contact your health care provider. INDICATION: FLUID COLLECTION SEEN DVT ON US TECHNIQUE: CT abdomen and pelvis acquired with 99 cc Isovue 370 IV contrast. COMPARISON: Chest CT October 2022. FINDINGS: Lower chest: 3 millimeter right lower lobe indeterminate pulmonary nodule. Stable from 2021, statistically benign. ABDOMEN: Liver: Normal enhancement. Subcentimeter hypodensity abutting the capsular portion of segment 6. Too small to characterize. Gallbladder and biliary: Normal gallbladder without radiopaque stone. Normal caliber bile ducts. Spleen: Normal size and enhancement. Pancreas: Normal enhancement without peripancreatic inflammatory changes or ductal dilatation. Adrenal glands: Right adrenal nodule measuring not quite simple attenuation and 17 millimeters, unchanged from October 2022 exam where this measured simple cystic attenuation, statistically an adenoma. Kidneys and ureters: Normal enhancement. No radio-opaque calculi. No hydroureteronephrosis. GI tract: Tiny hiatal hernia. Normal caliber small and large bowel loops. Normal appendix. Colonic diverticula without diverticulitis. Vascular structures: Normal caliber aorta with atherosclerotic calcifications. Filling defect within the left SFV and DFV extending proximally towards the confluence with the right and left common iliac veins. No thrombus definitively seen within the IVC. Lymph nodes: No lymphadenopathy in the abdomen or pelvis by size criteria. Peritoneum: No intraperitoneal free fluid. PELVIS: Genitourinary system: Normal urinary bladder. Massive masslike cystic lesion measuring up to 26.2 cm occupies the extraperitoneal space causing mass effect on the peritoneal space pushing up bowel and organs superiorly. This is not quite simple attenuation. No mural nodularity. No stranding. Age-appropriate uterus. Right adnexum cystic lesion measuring 5.8 cm. SKELETAL STRUCTURES AND SOFT TISSUES: Bilateral hip arthroplasties. Left hip joint effusion. Stranding/subcutaneous edema in the left lower extremity may be secondary to vascular congestion from DVT. Old right-sided rib fractures. Multilevel spondylosis. IMPRESSION: 1. Massive masslike cystic lesion measuring up to 26.2 cm occupies the extraperitoneal space causing mass effect on the peritoneal space pushing up bowel and organs superiorly. This is not quite simple attenuation. No mural nodularity. No stranding. Leading differential considerations include cystic neoplasm potentially from ovaries. Recommend further evaluation with dedicated gynecologic consultation. 2. Lesion causes mass effect upon the peritoneal organs and vasculature. This causes DVT extending from the left SFV and DFV centrally towards the confluence of the left common and right common iliac veins to form the IVC. Consider dedicated CT PE study to assess for pulmonary embolus. 3. Additional right adnexal cystic lesion measuring 5.8 cm. Incompletely characterized on this exam. Please note that all CT scans at this facility use dose modulation, iterative reconstruction, and/or weight-based dosing when appropriate to reduce radiation dose to as low as reasonably achievable. Dictated by Gil Tovar MD @ 09/13/2025 6:28:52 PM <Francie Stockton MD - Last Filed: 09/15/25 08:30> CT scan - chest: Attestation: I have reviewed the pertinent imaging results. <Francie Stockton MD - Last Filed: 09/15/25 08:30> Radiologist's impression: Patient: Morales Perdomo MR#: [id number] : 1950 Acct:[id number] Loc: ED Service Date: 09/13/[address]: Ordering Physician: Francie Stockton M.D. Date of Service: 09/13/25 Procedure(s): CT angio chest PE protocol Accession Number(s): [id number] cc: Francie Stockton M.D.; Bertram Bush M.D.~ For Patients: As a result of the Cures Act, medical imaging exams and procedure reports are released immediately into your electronic medical record. You may view this report before your referring provider. If you have questions, please contact your health care provider. INDICATION: Pulmonary embolism (PE) suspected. Extensive deep venous thrombosis. TECHNIQUE: CT chest PE was acquired with 95 cc Isovue 370 IV contrast. COMPARISON: CT abdomen pelvis 09/13/2025, CT chest 10/09/2022. FINDINGS: Heart and vasculature: Pulmonary emboli identified within the lobar, segmental, and subsegmental branches of the left lower lobe. Additional questionable clot burden within the segmental branches of the right middle lobe. No convincing CT evidence of right heart strain. No cardiomegaly or pericardial effusion. Main pulmonary artery normal in caliber. No thoracic aortic aneurysm. Lungs and pleura: No focal consolidation. No pleural effusion or pneumothorax. Patent central airways. Scattered pulmonary micronodules measuring up to 2 mm (for example right middle lobe series 12, image 91), not definitively identified on prior chest CT. Lymph nodes/mediastinum: No suspicious lymphadenopathy. Chest wall: No suspicious chest wall mass or fluid collection. Upper abdomen: Please see same day CT abdomen pelvis for discussion of intra-abdominal contents. Bones: No acute abnormality. IMPRESSION: 1. Pulmonary emboli involving the lobar, segmental, and subsegmental branches of the left lower lobe with questionable additional clot burden noted within the segmental branches of the right middle lobe. No convincing CT evidence of right heart strain. 2. Scattered pulmonary micronodules bilaterally measuring up to 2 mm, not definitively identified on prior CT chest. Optional follow-up CT chest could be pursued in 12 months to assess for interval change as clinically warranted. The above finding of pulmonary emboli relayed to provider Dr. Lacey by Dr. Acuña on 09/13/2025 at 7:40 p.m. 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 Please note that all CT scans at this facility use dose modulation, iterative reconstruction, and/or weight-based dosing when appropriate to reduce radiation dose to as low as reasonably achievable. Dictated by Orion Acuña MD @ 09/13/2025 7:43:54 PM <Francie Stockton MD - Last Filed: 09/15/25 08:30> Discharge Plan Discharge Clinical Impression: Acute deep vein thrombosis (DVT) of left lower extremity, Abdominal mass <Francie Stockton MD - Last Filed: 09/15/25 08:30> Patient Disposition: [facility] <Francie Stockton MD - Last Filed: 09/15/25 08:30> Prescriptions: No Action escitalopram oxalate 20 mg tablet 20 mg PO DAILY Qty: 90 3RF metoprolol succinate 25 mg tablet extended release 24 hr 25 mg PO DAILY Qty: 90 3RF oxycodone 5 mg tablet 2.5 - 5 mg PO Q4-6H MDD 6 PRN (Reason: pain) Qty: 15 0RF Rx Instructions: Take as needed for postop pain: 2.5mg mild pain, 5mg moderate-severe pain; wean as tolerated. sennosides-docusate sodium [Senna-S] 8.6-50 mg tablet 1 - 4 tab-cap PO BID PRN (Reason: constipation) Qty: 60 0RF Rx Instructions: Hold medication if experiencing loose stools. aspirin 81 mg tablet,delayed release (DR/EC) 81 mg PO BID Qty: 50 0RF Rx Instructions: Medication to help prevent blood clots postoperatively; take TWICE daily. acetaminophen 500 mg capsule 500 - 1,000 mg PO Q6H MDD 4000mg per day PRN (Reason: pain) Qty: 100 0RF omeprazole 20 mg capsule,delayed release(DR/EC) 20 mg PO DAILY <Francie Stockton MD - Last Filed: 09/15/25 08:30> Stand Alone Forms: [employer] Info Instructions <Francie Stockton MD - Last Filed: 09/15/25 08:30>
[2025-09-13 18:02] LABS: Hematocrit* 27.4 % (33.0-51.0); Hemoglobin* 8.6 gm/dL (12.0-16.0); Immature Granulocytes Abs Auto 0.05 K/uL (0.00-0.30); Immature Granulocytes Pct Auto 0.6 %; Mean Corpuscular HGB Conc 31 gm/dL (32-36); Mean Corpuscular Hemoglobin 30 pg (26-34); Mean Corpuscular Volume 96 fL (80-100); RDW Coefficient of Variation % 11.9 % (11.5-15.5); Red Blood Count* 2.86 m/uL (4.00-5.20); White Blood Count* 8.66 K/uL (4.50-11.00)
[2025-09-13 18:05] LABS: Lymphocytes Absolute Auto 1.40 K/uL (0.90-2.90); Slide Review Reflex No
[2025-09-13 18:16] LABS: Chloride* 97 mmol/L (96-114); Potassium* 3.7 mmol/L (3.6-5.1); Sodium* 133 mmol/L (135-149)
[2025-09-13 18:18] LABS: INR 1.21 (0.91-1.10); Prothrombin Time 16.2 Seconds
[2025-09-13 18:19] LABS: Anion Gap 10 mEq/L (7-15); Blood Urea Nitrogen* 21 mg/dL (7-30); Calcium* 8.8 mg/dL (8.4-10.6); Carbon Dioxide* 26 mmol/L (20-32); Creatinine* 0.7 mg/dL (0.5-1.5); Estimated Glomerular Filt Rate 90 ml/min; Glucose* 123 mg/dL (60-115)
[2025-09-13 18:47] VITALS: PULSE 93; O2SAT 96
--- NOTE | 2025-09-13 18:48 | CRLHL7_ITS ---
For Patients: As a result of the Century Cures Act, medical imaging exams and procedure reports are released immediately into your electronic medical record. You may view this report before your referring provider. If you have questions, please contact your health care provider. INDICATION: Pulmonary embolism (PE) suspected. Extensive deep venous thrombosis. TECHNIQUE: CT chest PE was acquired with 95 cc Isovue 370 IV contrast. COMPARISON: CT abdomen pelvis 09/13/2025, CT chest 10/09/2022. FINDINGS: Heart and vasculature: Pulmonary emboli identified within the lobar, segmental, and subsegmental branches of the left lower lobe. Additional questionable clot burden within the segmental branches of the right middle lobe. No convincing CT evidence of right heart strain. No cardiomegaly or pericardial effusion. Main pulmonary artery normal in caliber. No thoracic aortic aneurysm. Lungs and pleura: No focal consolidation. No pleural effusion or pneumothorax. Patent central airways. Scattered pulmonary micronodules measuring up to 2 mm (for example right middle lobe series 12, image 91), not definitively identified on prior chest CT. Lymph nodes/mediastinum: No suspicious lymphadenopathy. Chest wall: No suspicious chest wall mass or fluid collection. Upper abdomen: Please see same day CT abdomen pelvis for discussion of intra-abdominal contents. Bones: No acute abnormality. IMPRESSION: 1. Pulmonary emboli involving the lobar, segmental, and subsegmental branches of the left lower lobe with questionable additional clot burden noted within the segmental branches of the right middle lobe. No convincing CT evidence of right heart strain. 2. Scattered pulmonary micronodules bilaterally measuring up to 2 mm, not definitively identified on prior CT chest. Optional follow-up CT chest could be pursued in 12 months to assess for interval change as clinically warranted. The above finding of pulmonary emboli relayed to provider Dr. Lacey by Dr. Acuña on 09/13/2025 at 7:40 p.m. 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 Please note that all CT scans at this facility use dose modulation, iterative reconstruction, and/or weight-based dosing when appropriate to reduce radiation dose to as low as reasonably achievable. Dictated by Orion Acuña MD @ 09/13/2025 7:43:54 PM (Electronically Signed)
[2025-09-13] MEDS: HEPARIN 5,000 UNIT/0.5 ML INJ 6300 UNIT IVP (19:32)
[2025-09-13 19:37] LABS: Albumin* 3.4 g/dL (3.3-5.0)
[2025-09-13] MEDS: HEPARIN 25,000 UNIT/500 ML BAG 28 UNIT IV (19:37)
[2025-09-13 19:40] LABS: Alanine Aminotransferase* 46 U/L (4-35); Alkaline Phosphatase* 89 U/L (40-150); Aspartate Amino Transferase* 66 U/L (12-35); Bilirubin Direct* 0.3 mg/dL (0.0-0.5); Bilirubin Total* 0.6 mg/dL (0.1-1.5); Total Protein* 6.6 g/dL (6.0-8.3)
[2025-09-13 20:44] LABS: NT Pro B Type NatriureticPept* 316 pg/mL (See Note)
[2025-09-13 22:10] VITALS: BP 113/60; PULSE 99; RESP 18; TEMP 36.6; O2SAT 96
== END 2025-09-13 22:40 | disposition short-term general hospital (02) ==
PROVIDERS: Emergency Medicine; Emergency Provider Family Medicine; PCP Family Medicine
DX: I82.812 Embolism and thrombosis of superficial veins of left lower extremity (principal); I82.412 Acute embolism and thrombosis of left femoral vein; I82.462 Acute embolism and thrombosis of left calf muscular vein; I82.442 Acute embolism and thrombosis of left tibial vein; I82.452 Acute embolism and thrombosis of left peroneal vein; I82.432 Acute embolism and thrombosis of left popliteal vein; R19.00 Intra-abdominal and pelvic swelling, mass and lump, unspecified site; N83.201 Unspecified ovarian cyst, right side; Z98.890 Other specified postprocedural states; Z96.642 Presence of left artificial hip joint; M79.605 Pain in left leg; R22.42 Localized swelling, mass and lump, left lower limb
CPT/HCPCS: 36415; 71275; 74177; 80048; 80076; 83880; 84484; 85025; 85610; 85730; 93971; 96374; 96375; 96376; 99284; 99285; J1171; J1644; Q9967

== ENCOUNTER 2025-09-13 22:31 | Outpatient (CLI) | payer MEDICARE, SELFPAY | END 2025-09-13 22:32 | disposition home or self-care (01) | LOC: AMB 09-17 20:11 | PROVIDERS: PCP Family Medicine; Visit Provider Family Medicine | DX: I82.402 Acute embolism and thrombosis of unspecified deep veins of left lower extremity (principal); R19.00 Intra-abdominal and pelvic swelling, mass and lump, unspecified site | CPT/HCPCS: A0425; A0434 ==

== ENCOUNTER 2025-10-05 10:04 | Outpatient (CLI) | payer MEDICARE, SELFPAY | END 2025-10-05 10:05 | disposition home or self-care (01) | LOC: LKVREF 10:05 | PROVIDERS: PCP Family Medicine; Visit Provider Family Medicine | DX: Z01.818 Encounter for other preprocedural examination (principal); I10 Essential (primary) hypertension | CPT/HCPCS: 80048 ==